=== PATIENT | male | born 1955 | race Caucasian/White ===

== ENCOUNTER → 2017-11-26 13:26 | Outpatient (CLI) | payer OTHER, SELFPAY ==
--- NOTE | 2017-11-26 13:30 | RAD_ITS ---
STUDY: X-RAY - RIGHT HAND, ATTENTION THIRD FINGER REASON FOR EXAM: Male, 62 years old. Chronic sore pain. TECHNIQUE: view(s) of the finger were obtained. COMPARISON: None. FINDINGS: Normal metacarpal head. There is moderate arthrosis of the metacarpal phalangeal and interphalangeal joints. Normal proximal phalanx. Normal middle phalanx. Normal distal phalanx. RAD/Finger(s) Min 2 Views IMPRESSION: Osteoarthritic changes. No acute pathology. Electronically Signed: Kenneth Kay MD at 11:12 EDT , Service support ,
== END ==
PROVIDERS: Family Provider Family Medicine; PCP Family Medicine; Visit Provider Orthopaedic Surgery
DX: M79.644 Pain in right finger(s) (principal)
CPT/HCPCS: 73140

== ENCOUNTER 2017-12-18 09:35 | Day surgery (SDC) | payer OTHER, SELFPAY ==
[2017-12-18 09:57] VITALS: BP 138/75; PULSE 53; RESP 14; TEMP 36.3; O2SAT 98; BMI 32.1
[2017-12-18 10:21] LABS: Bedside Glucose 258 mg/dL (70-110)
--- NOTE | 2017-12-18 11:30 | BON_PTH ---
PATIENT: GUSTAVO KELLY [place] [facility] [id number] AGE/SX: 62/M ROOM: RE12/18/[address]: Dr. Vee Azul DO : 1955 BED: DIS: 12/18/2017 SPEC #: [id number] RECD: 12/18/17 16:14 STATUS: SARAH RIGOBERTO #: [id number] JHON: 12/18/17 11:[address]: Vee Azul DEPT: SURGICAL PATHOLOGY RECD BY: Husam Villalpando ENTERED: 12/19/17 09:07 SP TYPE: Bone OTHR DR: Dr. Gonsalo Bertrand MD Tissues: A - Bone of hand, NOS B - CYST Procedures: Decalcification bone/plaque Surgery Specimen Level III Surgery Specimen Level IV HEADER OPERATION: Debridement and cyst removal, DIP joint middle finger PRE-OP DIAGNOSIS: Osteoarthritis of finger of right hand, bone TISSUE SUBMITTED: A ? Bone DIP joint middle finger right hand, B ? Cyst DIP joint middle finger right hand MICROSCOPIC DIAGNOSIS A. Bone, DIP joint, middle finger of right hand, biopsy: Fragments of hyaline cartilage and bone with focal reactive change. Fibrous tissue with thermal artifact. No evidence of malignancy. B. Cyst, DIP joint, middle finger of right hand, biopsy: Synovial cyst with fibrosis. AM:gus 12/23/17 MICROSCOPIC DESCRIPTION Slides are reviewed. GROSS DESCRIPTION A - Received in fixative is one container labeled with the patient's name and designated bone DIPJ middle finger right. The specimen consists of multiple minute pieces of bone that in aggregate measure 1 x 0.2 x 0.1 cm. The entire specimen is submitted in one cassette after decalcification. B - Received in fixative is one container labeled with the patient's name and designated cyst DIPJ middle finger right. The specimen consists of a piece of esquivel, indurated tissue measuring 0.8 x 0.3 x 0.3 cm. The entire specimen is submitted in one cassette. / SJ:gus 12/19/17 TC:5 CPT: 92165, 79605, 22997
[2017-12-18] MEDS: Cefazolin 2 GM in 0.9% Normal Saline 100 ML IV (12:19)
--- NOTE | 2017-12-18 12:31 | OP.PCM_ITS ---
Report of Operation Date of Procedure: 12/18/17 Pre-Operative Diagnosis: right middle finger dip osteoarthritis and myxoid cyst Post-Operative Diagnosis: same Surgery/Procedure Performed:: right middle finger dip joint debridement, myxoid cyst excision Type of Anesthesia:: BlockDesirae, Local Anesthesiologist: Etienne Guajardo Specimen's removed: myxoid cyst and bone dip joint Fluids Replaced: 1000ml lr Description of Procedure: Preop note Patient is a 62-year-old male with continued right third finger DIP pain continued inability to use finger due to pain. Risks benefits alternatives surgery discussed with patient. Our x-rays show arthritis and on clinical exam he has a myxoid cyst of the DIP joint. Risks including but not limited to blood loss, blood clot, infection, neurovascular injury, failure procedure, loss of life and loss of limb. Patient is aware would like proceed with right third finger DIP joint debridement myxoid cyst excision. Next Operative note Patient seen and examined preoperative holding area. Right third finger was marked. Patient is brought to the operating room placed supine on the operating room table. Signing, anesthesia, antibiotics were administered. The right hand was prepped and draped in usual sterile fashion after [place] block was initiated. We marked out our curvilinear incision over the DIP joint of the right third finger. Timeout was performed. We then used a 15 blade to cut through the skin dissected down tenotomy to the level of the myxoid cyst. There is myxoid cyst was removed in its entirety and the stalk was ablated with bipolar. We sent the cyst for further evaluation. We then were able to dissect down to the DIP joint at the level of where the cyst was coming from we gently debrided with a rongeur and a rasp to a smooth surface. The incision was irrigated with copious amounts of sterile saline. The incision was closed with interrupted 4-0 nylon suture sterile dressings were applied. The patient tolerated procedure well there are no complications. Patient transferred to recovery room in stable condition. Next Postoperative note next Hospital has prescriptions of Leave dressing intact next Call with increased pain numbness tingling further issues arise This note was generated with Micronotesation software. It may contain incorrect words, spelling, and punctuation that were not noted in checking the note before signing.
--- NOTE | 2017-12-18 12:31 | DCINST_ITS ---
Discharge Diet: No Restrictions - leave dressing in place, may remove/replace if gets dirty, follow up in 2 wks, call with concerns Discharge Activity: May Not Drive May shower in (days): 1 Ice area for (Minutes): 20 - Every hour while awake. Weight Bearing Status: Weight bearing as tolerated Keep extremity elevated above heart level: Operative Extremity Call your doctor if your incision/area has: Continuous Slow Oozing, Sudden Increased Bleeding, Increased Pain/ Swelling, Increased Redness, Foul Smelling Discharge Call your doctor if you observe: Fever of 101 or Higher, Coldness, Increased Pain, Numbness or Tingling, Change in Color, Calf discomfort Allergies/Adverse Reactions: Allergies No Known Allergies Allergy (Verified 12/11/17 13:47) Medications to take at Discharge Allopurinol [Zyloprim] 100 mg PO DAILYCM 05/28/13 Ascorbic Acid [Vitamin C] 500 mg PO DAILY@0800 05/28/13 Aspirin 325 mg PO DAILY@0800 05/28/13 Ezetimibe [Zetia] 10 mg PO DAILY 05/28/13 Famotidine [Pepcid] 20 mg PO DAILY 05/28/13 Folic Acid 0.8 mg PO DAILY@0800 05/28/13 Fosinopril Sodium [Monopril] 10 mg PO DAILY 05/28/13 Magnesium 250 mg PO DAILY 05/28/13 Metoprolol(XL)Succ [Toprol Xl] 100 mg PO BID 05/28/13 Nitroglycerin [Nitrostat] 0.4 mg SUBLINGUAL Q5M PRN 05/28/13 Rosuvastatin Calcium [Crestor] 20 mg PO QHS 05/28/13 Clopidogrel Bisulfate [Plavix] 75 mg PO DAILY 09/11/13 Ranolazine [Ranexa] 1,000 tab PO BID 09/11/13 Insulin Aspart [Novolog Flexpen ([facility])] 18 units SC TIDCM 12/11/17 Insulin Glargine [Lantus ([facility])] 58 units SC QHS 12/11/17 Insulin Glargine [Lantus (BK)] 66 units SC DAILY 12/11/17 Hydrocodone Bitart/Apap 5-325 [[place] 5MG-325MG] 1 - 2 tablet PO Q6H PRN PRN 3 Days #20 tablet 12/18/17 The following prescriptions were given: Hydrocodone Bitart/Apap 5-325 [[place] 5MG-325MG] 1 - 2 tablet PO Q6H PRN PRN 3 Days #20 tablet PRN Reason: Pain Primary Care Physician: Johann Bertrand MD [Primary Care Provider] - Please Follow Up With: Vee Azul, - [phone]
[2017-12-18] MEDS: Bupivacaine Mpf 0.5% 30 ML VIAL (13:07)
[2017-12-18] MEDS: Mupirocin Ointment 22gm Tube 1 APPLIC (13:13)
[2017-12-18 13:20] VITALS: BP 126/70; BP 138/75; PULSE 62; RESP 16; TEMP 35.9; O2SAT 93
[2017-12-18 13:25] VITALS: BP 123/72; BP 138/75; PULSE 60; RESP 16; O2SAT 93
[2017-12-18 13:30] VITALS: BP 117/73; BP 138/75; PULSE 60; RESP 16; O2SAT 92
[2017-12-18 13:35] VITALS: BP 117/71; BP 138/75; PULSE 60; RESP 16; TEMP 35.8; O2SAT 92
[2017-12-18 14:31] VITALS: BP 138/75
== END 2017-12-18 14:31 | disposition home or self-care (01) ==
LOC: SDC 09:38 → AC 09:39
PROVIDERS: Family Provider Family Medicine; PCP Family Medicine; Visit Provider Orthopaedic Surgery
PROC: (CPT 26160; principal; 2017-12-18 11:15)
DX: M71.341 Other bursal cyst, right hand (principal); M19.041 Primary osteoarthritis, right hand; Z79.899 Other long term (current) drug therapy; Z79.02 Long term (current) use of antithrombotics/antiplatelets; Z79.4 Long term (current) use of insulin; E11.9 Type 2 diabetes mellitus without complications; Z85.46 Personal history of malignant neoplasm of prostate; I25.10 Atherosclerotic heart disease of native coronary artery without angina pectoris; Z95.1 Presence of aortocoronary bypass graft; E78.00 Pure hypercholesterolemia, unspecified; K21.9 Gastro-esophageal reflux disease without esophagitis; I25.2 Old myocardial infarction; I10 Essential (primary) hypertension
CPT/HCPCS: 01810; 26160; 82962; 88304; 88305; 88311; J7120

== ENCOUNTER → 2018-04-10 06:08 | Outpatient (CLI) | payer OTHER, SELFPAY ==
--- NOTE | 2018-04-10 09:33 | STRESSREP ---
Stress Test Report Date: 04/10/2018 Procedure: Exercise tolerance test/imaging study Indications: Chest pain; CAD: CABG Consent: Per the patient Procedure: The patient exercised on a Antonio protocol for 3 minutes and 27 seconds completing Stage I and 27 seconds of Stage II achieving a peak heart rate of 109 bpm (69 % predicted maximal heart rate) with a peak blood pressure 142/82 mmHg and a peak MET capacity of 5 METs. The baseline ECG demonstrated normal sinus rhythm; PVC. The peak exercise ECG demonstrated somatic/motion artifact with the appearance of approximately 0.5 mm -1.0 mm of horizontal to upsloping ST segment depression in leads I and II. There was an occasional PVC pretest. The functional capacity was considered decreased. There was [no complaint of chest discomfort during exercise or recovery]. The examination was discontinued secondary to dyspnea. Impression: 1. Technically inadequate (percent predicted maximal heart rate less than 85%) exercise tolerance test 2. Peak exercise ECG approximately 0.5 mm to 1.0 mm horizontal to upsloping ST segment depression in leads I and II 3. There was an occasional PVC pretest 4. Pharmacologic (Regadenoson) evaluation pending. Procedure: Pharmacologic stress nuclear imaging study Consent: Per the patient Procedure: The patient underwent pharmacologic (Regadenoson) evaluation with a peak heart rate of 76 beats per minute (48 predicted maximal heart rate) and a peak blood pressure of 140/80 mmHg. The baseline ECG demonstrated sinus rhythm with the appearance of 0.5 mm to 1.0 mm of horizontal/downsloping ST segment depression with associated T-wave change in leads I, II, and aVL with occasional PVC. The peak pharmacologic ECG demonstrated no obvious ECG change. There was an occasional PVC pretest. [There was no complaint of chest discomfort during pharmacologic infusion or recovery]. The examination was discontinued secondary to completion of protocol. Impression: 1. Pharmacologic (Regadenoson) evaluation 2. Peak pharmacologic ECG with continued 0.5 mm to 1.0 mm horizontal/downsloping ST segment depression with associated T-wave change in leads I, II, and aVL with gradual resolution towards baseline in recovery. 3. Was occasional PVC pretest and during recovery 4. Nuclear images pending Myocardial perfusion imaging study: Technique: The patient was injected with 10.8 millicuries of technetium 99m Cardiolite and subsequently rest SPECT Cardiolite nuclear imaging was obtained in the horizontal long, vertical long, and short axis views. The patient exercised on a Antonio protocol for 3 minutes and 27 seconds completing Stage I and 27 seconds of Stage II achieving a peak heart rate of 109 bpm (69 % predicted maximal heart rate) with a peak blood pressure 142/82 mmHg and a peak MET capacity of 5 METs. The patient underwent pharmacologic (Regadenoson) evaluation with a peak heart rate of 76 beats per minute (48 predicted maximal heart rate) and a peak blood pressure of 140/80 mmHg. The patient was injected with 33.6 millicuries of technetium 99m Cardiolite and subsequently stress SPECT Cardiolite nuclear imaging was obtained in the horizontal long, vertical long, and short axis views. A gated Cardiolite study at peak stress was obtained. Interpretation: Rest and stress SPECT Cardiolite nuclear imaging status post realignment, normalization, and attenuation correction demonstrate the appearance of diminished myocardial perfusion/tracer uptake in portions of the basal inferoseptal, basal inferior, and basal inferolateral segments extending toward the mid inferolateral segments which status post stress appears to be more prominent in the mid towards distal inferolateral segments. There are similar type findings on the resting and stress polar map images. There is diminished end systolic thickening and brightening in the aforementioned areas. The gated Cardiolite study demonstrates diminished myocardial thickening and inward wall motion in the aforementioned areas. The reported LVEF is 51 %. Impression: 1. Rest and stress SPECT cardio nuclear imaging demonstrate myocardial perfusion changes appearing compatible with an area of previous myocardial injury/infarction involving portions of the basal inferior septal, basal inferior, basal inferolateral segments extending towards the mid inferolateral segments with post stress myocardial perfusion changes appearing compatible with associated stress-induced myocardial ischemia involving portions of the mid to distal inferolateral segments. 2. The gated Cardiolite study reports an LVEF of 51 %. This note was generated with GenieBeltation software. It may contain incorrect words, spelling, and punctuation that were not noted in checking the note before signing.
== END ==
PROVIDERS: Family Provider Family Medicine; PCP Family Medicine; Visit Provider Nurse Practitioner Family
DX: I25.10 Atherosclerotic heart disease of native coronary artery without angina pectoris (principal); R07.9 Chest pain, unspecified; R06.09 Other forms of dyspnea
CPT/HCPCS: 78452; 93017; 93306; A9500; A4216; J2785

== ENCOUNTER 2018-05-02 10:20 | Day surgery (SDC) | payer OTHER, SELFPAY ==
--- NOTE | 2018-04-28 06:50 | RAD_ITS ---
STUDY: X-RAY CHEST REASON FOR EXAM: Male, 63 years old. Pre heart catheter. Short of breath. TECHNIQUE: Frontal and lateral views of the chest. COMPARISON: 05/18/2013. FINDINGS: The lungs are clear and expanded. There is no demonstrated pleural abnormality. Sternal cerclage wires and vascular clips are present from a prior sternotomy and coronary artery bypass graft procedure (CABG). Normal heart size. Normal mediastinum and magdy. Normal visualized pulmonary arteries. Normal visualized aortic arch and descending thoracic aorta. Normal visualized thoracic spine. Normal visualized ribs, clavicles, and shoulders. There is no demonstrated abnormality of the visualized soft tissue structures of the upper abdomen. RAD/Chest PA and Lateral IMPRESSION: No acute chest disease. Electronically Signed: Mil Jackson MD at 17:02 EDT , Service support ,
[2018-04-28 07:23] LABS: Absolute Lymphocyte Count 2.44 X10^3/ul (0.83-4.51); Absolute Neutrophil Count 4.3 X10^3/uL (2.0-7.7); Basophil# 0.01 X10^3/uL; Basophil% 0.1 % (0-1); Eosinophil# 0.18 X10^3/uL; Eosinophils% 2.4 % (0-5); Hematocrit 42.9 % (40-54); Lymphocyte # 2.44 X10^3/ul (4.0); Mean Corpuscular Hgb 33.8 pg (27.0-32.0); Mean Corpuscular Volume 96.6 fL (80-94); Mean Platelet Vol. 11.2 fl (6.2-12.0); Monocyte# 0.71 X10^3/uL; Monocyte% 9.3 % (0-10); Neutrophil # 4.25 X10^3/uL (2.7-7.7); Neutrophil % 55.7 % (47-70); Platelet Count 167 K/mm3 (150-450); RBC Distribution Width CV 13.2 % (11.6-14.6); RBC Distribution Width SD 45.8 fl (35.1-43.9); Red Blood Count 4.44 M/mm3 (4.6-6.2); White Blood Count 7.6 K/mm3 (4.4-11.0)
[2018-04-28 07:30] LABS: Prothrombin Time (Protime)PT. 13.2 SECONDS (11.7-14.9)
[2018-04-28 07:31] LABS: Partial Thromboplast Time 26.9 Seconds (24.1-36.2)
[2018-04-28 07:40] LABS: Anion Gap 6 (5-15); BUN 21 mg/dL (7-18); BUN/Creat Ratio 14.5 RATIO (10-20); Calcium,Total 8.5 mg/dL (8.5-10.1); Chloride 104 mmol/L (98-107); Creatinine, Serum 1.45 mg/dL (0.70-1.30); EST Glomerular Filtration Rate 52 mL/min (>60); Est Glom Filt Rate - Afr Amer 63 mL/min (>60); Glucose 273 mg/dL (74-106); Potassium 4.2 mmol/L (3.5-5.1); Sodium Level 139 mmol/L (136-145)
[2018-04-28 07:58] LABS: POSITIVE COUNT NO; POSITIVE DIFFERENTIAL NO; POSITIVE MORPHOLOGY NO
[2018-05-01 09:03] VITALS: BMI 32.3
--- NOTE | 2018-05-02 09:19 | PCM.HP.COS ---
History of Present Illness Date of Admission: 05/02/18 The patient is a 63 year old M who presents today for a heart cath. He has a history of coronary artery disease status post bypass surgery in 1995 with an SANDOVAL to LAD, SVG to diagonal, SVG to IR, and SVG to RCA. He also has history of ischemic cardiomyopathy, PVCs, hypertension, hyperlipidemia, and KYLE with BiPap. During his OV he noted chest pain and SOB. This was relieved with NTG and could occur 2-3 times a week. He would take NTG prior to activity to prevent this. Pt underwent a stress test which was abnormal. It demonstrated: 1. Rest and stress SPECT cardio nuclear imaging demonstrate myocardial perfusion changes appearing compatible with an area of previous myocardial injury/infarction involving portions of the basal inferior septal, basal inferior, basal inferolateral segments extending towards the mid inferolateral segments with post stress myocardial perfusion changes appearing compatible with associated stress-induced myocardial ischemia involving portions of the mid to distal inferolateral segments. 2. The gated Cardiolite study reports an LVEF of 51 %. Past Medical History Past Medical History (Chronic Problems): Chronic Problems (Last Updated 04/11/18 @ 11:19 by Fide Cristina) Atherosclerosis of coronary artery bypass graft without angina pectoris (Chronic) Ischemic cardiomyopathy (Chronic) Diabetes (Chronic) PVCs (premature ventricular contractions) (Chronic) Hyperlipidemia (Chronic) Hypertension (Chronic) Atherosclerosis of [place] coronary artery of [place] heart without angina pectoris (Chronic) S/P CABG in 1995 with SANDOVAL to LAD, SVG to diagonal, SVG to intermediate ramus, and SVG to RCA; Medical History: Medical History (Last Updated 04/11/18 @ 11:19 by Fide Cristina) Atherosclerosis of coronary artery bypass graft without angina pectoris (Chronic) I25.810 History of myocardial infarction (Acute) I25.2 Ischemic cardiomyopathy (Chronic) I25.5 Diabetes (Chronic) E11.9 PVCs (premature ventricular contractions) (Chronic) I49.3 Hyperlipidemia (Chronic) E78.5 Hypertension (Chronic) I10 Atherosclerosis of [place] coronary artery of [place] heart without angina pectoris (Chronic) I25.10 S/P CABG in 1995 with SANDOVAL to LAD, SVG to diagonal, SVG to intermediate ramus, and SVG to RCA; Obstructive sleep apnea G47.33 Kidney stones N20.0 Allergies No Known Allergies Allergy (Verified 03/24/18 16:00) Home Medications: Ambulatory Orders Medication Instructions Recorded Allopurinol [Zyloprim] 100 mg PO DAILYCM 05/28/13 Ascorbic Acid [Vitamin C] 500 mg PO DAILY@0800 05/28/13 Aspirin 325 mg PO DAILY@0800 05/28/13 Ezetimibe [Zetia] 10 mg PO DAILY 05/28/13 Famotidine [Pepcid] 20 mg PO DAILY 05/28/13 Folic Acid 0.8 mg PO DAILY@0800 05/28/13 Fosinopril Sodium [Monopril] 10 mg PO DAILY 05/28/13 Magnesium 250 mg PO DAILY 05/28/13 Nitroglycerin [Nitrostat] 0.4 mg SUBLINGUAL Q5M PRN 05/28/13 Rosuvastatin Calcium [Crestor] 20 mg PO QHS 05/28/13 Clopidogrel Bisulfate [Plavix] 75 mg PO DAILY 09/11/13 Ranolazine [Ranexa] 1,000 tab PO BID 09/11/13 Insulin Aspart [Novolog Flexpen 18 units SC TIDCM 12/11/17 ([facility])] Insulin Glargine [Lantus ([facility])] 58 units SC QHS 12/11/17 Insulin Glargine [Lantus (BK)] 66 units SC DAILY 12/11/17 fluticasone 50 mcg/actuation nasal 1 spray INTRANASAL QDAY 03/24/18 spray,suspension metoprolol tartrate 100 mg tablet 100 mg PO BID 03/24/18 Surgical History: Surgical History (Last Updated 01/03/18 @ 08:31 by Jay Radford) Hx of heart bypass surgery (Inactive) Z95.1 1995 bone spur removal R middle finger DIP jt H/O hernia repair Z98.890, Z87.19 Smoking Status: Never smoker Review of Systems Constitutional: Denies: Chills, Fever, Weight Change HEENT: Denies: Head Aches, Sinus Congestion, Sinus Drainage Cardiovascular: Reports: Chest Pain Respiratory: Denies: Cough, Shortness of breath at rest, Sputum production Musculoskeletal: Denies: Joint Pain, Joint Tenderness Neurological: Denies: Numbness, Tingling, Focal weakness VTE Information - Inpt Only VTE Present on Admission: No - Physical Exam General: Alert, Oriented x3, Cooperative HEENT: Atraumatic, PERRLA, EOMI, Normocephalic Neck: Supple, No JVD, Negative Carotid Bruits Lungs: Clear to auscultation, Normal air movement Cardiovascular: Regular rate, Murmur - 2/6 CICI Abdomen: Bowel Sounds Present, Soft, Non Tender Neurological: Cranial nerves II-XII grossly intact Weight: 213 lb Body Mass Index (BMI) 32.3 Assessment/Plan All Active Problems (Last Updated 04/11/18 @ 11:19 by Fide Cristina) History of myocardial infarction (Acute) 1. Atherosclerosis of [place] coronary artery of [place] heart without angina pectoris I25.10 S/P CABG in 1995 with SANDOVAL to LAD, SVG to diagonal, SVG to intermediate ramus, and SVG to RCA; Plan His heart catheterization in May 2013 showed multivessel coronary artery disease, SANDOVAL to LAD to be patent, SVG to diagonal branch, intermediate ramus, and RCA appear to be proximally occluded. The LAD appears to provide flow to septal perforating system into small diagonal branching systems and distal RCA/right PDA system (small caliber vessel). Pt will undergo a heart cath today. 2. Ischemic cardiomyopathy I25.5 Plan Pt recently had echo done, this demonstrated Mild segmental systolic dysfunction (see wall motion). The estimated ejection fraction is 45 %. Mild concentric left ventricular hypertrophy. The left atrium is mildly enlarged. There is mild mitral annular calcification. Equivocal mitral valve prolapse. Mild (1+) mitral valve insufficiency. Mild tricuspid valve insufficiency. Mild focal aortic valve thickening. Calcified aortic root. Right ventricular systolic pressure estimated to be 25 mmHg. Transmitral diastolic flow velocities suggest diastolic dysfunction (pseudonormal pattern). He will continue with medical management. 3. Essential hypertension I10 Plan Patient's blood pressure is well-controlled today in the office. We will continue to monitor this. We will not make any medication regimen changes. 4. Pure hypercholesterolemia E78.00; E78.0 Plan [facility] He will continue with current medications which include statin and non-statin medication. 5. PVCs (premature ventricular contractions) I49.3 Plan He denies any symptomatic recurrence. He will continue with current beta-elisha and we will continue to monitor.
--- NOTE | 2018-05-02 09:25 | HP.PCM.COS_ITS ---
History of Present Illness Date of Admission: 05/02/18 The patient is a 63 year old M who presents today for a heart cath. He has a history of coronary artery disease status post bypass surgery in 1995 with an SANDOVAL to LAD, SVG to diagonal, SVG to IR, and SVG to RCA. He also has history of ischemic cardiomyopathy, PVCs, hypertension, hyperlipidemia, and KYLE with BiPap. During his OV he noted chest pain and SOB. This was relieved with NTG and could occur 2-3 times a week. He would take NTG prior to activity to prevent this. Pt underwent a stress test which was abnormal. It demonstrated: 1. Rest and stress SPECT cardio nuclear imaging demonstrate myocardial perfusion changes appearing compatible with an area of previous myocardial injury/infarction involving portions of the basal inferior septal, basal inferior, basal inferolateral segments extending towards the mid inferolateral segments with post stress myocardial perfusion changes appearing compatible with associated stress-induced myocardial ischemia involving portions of the mid to distal inferolateral segments. 2. The gated Cardiolite study reports an LVEF of 51 %. Past Medical History Past Medical History (Chronic Problems): Chronic Problems (Last Updated 04/11/18 @ 11:19 by Fide Cristina) Atherosclerosis of coronary artery bypass graft without angina pectoris (Chronic) Ischemic cardiomyopathy (Chronic) Diabetes (Chronic) PVCs (premature ventricular contractions) (Chronic) Hyperlipidemia (Chronic) Hypertension (Chronic) Atherosclerosis of [place] coronary artery of [place] heart without angina pectoris (Chronic) S/P CABG in 1995 with SANDOVAL to LAD, SVG to diagonal, SVG to intermediate yimi us, and SVG to RCA; Medical History: Medical History (Last Updated 04/11/18 @ 11:19 by Fide Cristina) Atherosclerosis of coronary artery bypass graft without angina pectoris (Chronic) I25.810 History of myocardial infarction (Acute) I25.2 Ischemic cardiomyopathy (Chronic) I25.5 Diabetes (Chronic) E11.9 PVCs (premature ventricular contractions) (Chronic) I49.3 Hyperlipidemia (Chronic) E78.5 Hypertension (Chronic) I10 Atherosclerosis of [place] coronary artery of [place] heart without angina pectoris (Chronic) I25.10 S/P CABG in 1995 with SANDOVAL to LAD, SVG to diagonal, SVG to intermediate ramus, and SVG to RCA; Obstructive sleep apnea G47.33 Kidney stones N20.0 Allergies No Known Allergies Allergy (Verified 03/24/18 16:00) Home Medications: Ambulatory Orders Medication Instructions Recorded Allopurinol [Zyloprim] 100 mg PO DAILYCM 05/28/13 Ascorbic Acid [Vitamin C] 500 mg PO DAILY@0800 05/28/13 Aspirin 325 mg PO DAILY@0800 05/28/13 Ezetimibe [Zetia] 10 mg PO DAILY 05/28/13 Famotidine [Pepcid] 20 mg PO DAILY 05/28/13 Folic Acid 0.8 mg PO DAILY@0800 05/28/13 Fosinopril Sodium [Monopril] 10 mg PO DAILY 05/28/13 Magnesium 250 mg PO DAILY 05/28/13 Nitroglycerin [Nitrostat] 0.4 mg SUBLINGUAL Q5M PRN 05/28/13 Rosuvastatin Calcium [Crestor] 20 mg PO QHS 05/28/13 Clopidogrel Bisulfate [Plavix] 75 mg PO DAILY 09/11/13 Ranolazine [Ranexa] 1,000 tab PO BID 09/11/13 Insulin Aspart [Novolog Flexpen 18 units SC TIDCM 12/11/17 ([facility])] Insulin Glargine [Lantus ([facility])] 58 units SC QHS 12/11/17 Insulin Glargine [Lantus ([facility])] 66 units SC DAILY 12/11/17 fluticasone 50 mcg/actuation nasal 1 spray INTRANASAL QDAY 03/24/18 spray,suspension metoprolol tartrate 100 mg tablet 100 mg PO BID 03/24/18 Surgical History: Surgical History (Last Updated 01/03/18 @ 08:31 by Jay Radford) Hx of heart bypass surgery (Inactive) Z95.1 1995 bone spur removal R middle finger DIP jt H/O hernia repair Z98.890, Z87.19 Smoking Status: Never smoker Review of Systems Constitutional: Denies: Chills, Fever, Weight Change HEENT: Denies: Head Aches, Sinus Congestion, Sinus Drainage Cardiovascular: Reports: Chest Pain Respiratory: Denies: Cough, Shortness of breath at rest, Sputum production Musculoskeletal: Denies: Joint Pain, Joint Tenderness Neurological: Denies: Numbness, Tingling, Focal weakness VTE Information - Inpt Only VTE Present on Admission: No - Physical Exam General: Alert, Oriented x3, Cooperative HEENT: Atraumatic, PERRLA, EOMI, Normocephalic Neck: Supple, No JVD, Negative Carotid Bruits Lungs: Clear to auscultation, Normal air movement Cardiovascular: Regular rate, Murmur - 2/6 CICI Abdomen: Bowel Sounds Present, Soft, Non Tender Neurological: Cranial nerves II-XII grossly intact Weight: 213 lb Body Mass Index (BMI) 32.3 Assessment/Plan All Active Problems (Last Updated 04/11/18 @ 11:19 by Fide Cristina) History of myocardial infarction (Acute) 1. Atherosclerosis of [place] coronary artery of [place] heart without angina pectoris I25.10 S/P CABG in 1995 with SANDOVAL to LAD, SVG to diagonal, SVG to intermediate ramus, and SVG to RCA; Plan His heart catheterization in May 2013 showed multivessel coronary artery disease, SANDOVAL to LAD to be patent, SVG to diagonal branch, intermediate ramus, and RCA appear to be proximally occluded. The LAD appears to provide flow to septal perforating system into small diagonal branching systems and distal RCA/right PDA system (small caliber vessel). Pt will undergo a heart cath today. 2. Ischemic cardiomyopathy I25.5 Plan Pt recently had echo done, this demonstrated Mild segmental systolic dysfunction (see wall motion). The estimated ejection fraction is 45 %. Mild concentric left ventricular hypertrophy. The left atrium is mildly enlarged. There is mild mitral annular calcification. Equivocal mitral valve prolapse. Mild (1+) mitral valve insufficiency. Mild tricuspid valve insufficiency. Mild focal aortic valve thickening. Calcified aortic root. Right ventricular systolic pressure estimated to be 25 mmHg. Transmitral diastolic flow velocities suggest diastolic dysfunction (pseudonormal pattern). He will continue with medical management. 3. Essential hypertension I10 Plan Patient's blood pressure is well-controlled today in the office. We will continue to monitor this. We will not make any medication regimen changes. 4. Pure hypercholesterolemia E78.00; E78.0 Plan [facility] He will continue with current medications which include statin and non-statin medication. 5. PVCs (premature ventricular contractions) I49.3 Plan He denies any symptomatic recurrence. He will continue with current beta- elisha and we will continue to monitor.
--- NOTE | 2018-05-02 16:33 | CL.D_ITS ---
Patient Name: GUSTAVO KELLY Study Date: 05/02/2018 Performing: Rodríguez Srivastava MD Ht: 68 inches 173 cm : 1955 Wt: 214.1 lbs 97 kg Age: 63 Gender: male BSA: 2.11 PROCEDURE(S) PERFORMED [id number]/LV/CABG CLINICAL PROFILE AND INDICATIONS Indications: Worsening Angina Heart Failure: None Stress/Imaging Stress Test w/SPECT MPI: Yes Result: PositiveStress Test with SPECT MPI: Positive Angina Classification Anginal Classification w/in 2 Weeks: CCS III CAD Presentations: Unstable angina. CONCLUSIONS Elevated Left Ventricular End Diastolic Pressure Segmented LV systolic dysfunction- Mild LVEF: by LV gram 50 % [place] Multivessel CAD SANDOVAL to LAD: patent SVG to DX: occluded: chronic SVG to IR: occluded: chronic SVG to RCA: occluded: chronic C/W the [facility] cardiac cath from 05/29/2013 there is no significant change RECOMMENDATIONS Risk factor modification Medical therapy DESCRIPTION OF PROCEDURE The patient arrived to the procedure lab. The risks and benefits of the procedure as well as a full d escription of our services here and current unavailability of surgical backup were fully explained to the patient and/or their significant other prior to the catheterization. The Timeout was completed, verifying the correct patient and procedure. The patient's procedural site was prepped and draped in the usual fashion. Local anesthetic was given subcutaneously to right groin region with Lidocaine 2%. Using a modified Seldinger technique, arterial access was obtained via the right femoral artery, a 4 Fr sheath was inserted Left Coronary Artery selective angiography was performed in multiple views us ing a 4 Fr. JL5 catheter. Right Coronary Artery selective angiography was then performed in multiple views using a 4 Fr. 3DRC catheter. Left internal mammary artery graft to the LAD selective angiograph y was performed in multiple views using a 4 Fr. IM catheter. Left Ventriculography was performed in R AO projection using a 4 Fr. Pigtail catheter. LV to AO pullback pressures were then recorded.The sulaiman rial sheath was pulled and manual compression applied until hemostasis is achieved. CORONARY ANGIOGRAPHY DOMINANCE: Right Dominant LEFT HEART ASSESSMENT Left Ventricular Ejection Fraction: by LV Gram 50 % Inferior Basal Akinesis. Inferior Mid Hypokinesis Elevated Left Ventricular End Diastolic Pressure LVEDP: 16 mmHg LEFT MAIN: long small caliber diffusely diseased vessel with dital subtotal occlusion LEFT ANTERIOR DECENDING ARTERY: PROX LAD: is occluded MID LAD: Mid to Distal to Apical LAD filling from the SANDOVAL graft with no angiographically significant appearing stenosis distal to the graft attachment DIAGONAL 1: Proximal - filling retrograde from the LAD which fills from the SANDOVAL graft CIRCUMFLEX ARTERY: PROX CIRC: is occluded RAMUS: is occluded RIGHT CORONARY ARTERY: PROX RCA: is occluded RT PDA: Proximal - fills from left to right collateral flow (small caliber vessel) GRAFTS: SANDOVAL graft to the Mid LAD is patent with 25% appearing stenosis at the anastomosis Saphenous Vein graft to the 1st Diagonal is totally occluded (chronic: based upon 05/29/2013 cardiac cath) Saphenous Vein graft to the Ramus is totally occluded (chronic: based upon 05/29/2013 cardiac cath) Saphenous Vein graft to the RCA is totally occluded (chronic: based upon 05/29/2013 cardiac cath) VALVE FINDINGS: Normal Aortic Valve function Normal Mitral Valve function AORTIC ROOT: Angiographically normal COMPLICATIONS No Complications PROCEDURE MEDICATIONS Versed 1 mg IV Oxygen: 2 L/min via nasal cannula SUMMARY OF HEMODYNAMIC DATA Time AIR REST ECG 09:27:09 AO 116/63 (84) SA 10:56:35 LV 120/-1, 16 11:15:28 LV 130/-8, 15 11:15:34 LV 112/1, 17 11:16:22 LVp 116/6, 17 11:16:26 AOp 120/53 (78) 11:16:31 Signed By Rodríguez Srivastava MD On 05/02/2018 16:32:36 Rodríguez Srivastava MD
== END 2018-05-02 15:46 | disposition home or self-care (01) ==
LOC: CLSP 10:20
PROVIDERS: Nurse Practitioner Family; Family Provider Family Medicine; PCP Family Medicine; Visit Provider Internal Medicine Cardiovascular Disease
DX: I25.810 Atherosclerosis of coronary artery bypass graft(s) without angina pectoris (principal); I25.82 Chronic total occlusion of coronary artery; I10 Essential (primary) hypertension; E78.00 Pure hypercholesterolemia, unspecified; I25.5 Ischemic cardiomyopathy; I49.3 Ventricular premature depolarization; E11.9 Type 2 diabetes mellitus without complications; G47.33 Obstructive sleep apnea (adult) (pediatric); I25.2 Old myocardial infarction; Z87.442 Personal history of urinary calculi; Z87.19 Personal history of other diseases of the digestive system; Z79.82 Long term (current) use of aspirin; Z79.4 Long term (current) use of insulin; Z79.02 Long term (current) use of antithrombotics/antiplatelets; Z79.899 Other long term (current) drug therapy; R07.9 Chest pain, unspecified
CPT/HCPCS: 36415; 71046; 80048; 85025; 85610; 85730; 93459; J7040; C1769; C1894; Q9967

== ENCOUNTER 2018-09-03 07:18 | Outpatient (RCR) | payer OTHER, SELFPAY ==
--- NOTE | 2018-09-03 08:28 | HP.PTEVAL_ITS ---
Patient's Visit Information GUSTAVO KELLY is a 63 year old M referred to Physical Therapy by Johann Bertrand MD with a diagnosis of L groin strain. Date of Evaluation: 09/03/18 Physical Therapist: Manuel Nieves PT, ATC - Visit Plan Frequency: 1x/Week Duration: 1 Week Plan: Pt is I with HEP. Discharge - Subjective Findings: Pt reports he was playing softball 6 mos ago when he felt his L groin pain. Pt reports the pain is becoming less frequent in nature, but he still continues to feel his pain. Pt reports he has been skeptical about performing PT, but is willing to give it a chance. Pt reports he has been babying his pain, but the pain still exists. Pt reports his pain is directly in the L groin region. No tingling or numbness in L LE. No sleep difficulty at this time secondary to pain. Pt doesnt stretch LE's as a normal daily routine. Pt notes he is not limited with any of his normal daily activities. Pt has pulled his groin in the past. Pt has not had any pain in the past week or two. - Pain L groin Pain Intensity (Out of 10): 0 - Objective Neuro: B LE sensation is WNL to light touch. B patellar reflex= 2/3. Palpation: no pain with palpation. MMT: B hips are 5/5 throughout. ROM: B hips are WFL. Special tests: no positive tests other than flexibility limitations - Goals Goal 1:: I with HEP after 1 visit Goal Time Frame: 1 Week - Rehabilitation Potential Physical Therapy Diagnosis: Pt had L hip pain in the past secondary to straining his R groin in a softball game Rehabilitation Potential: Good - Anticipated Interventions Patient/Client Instruction: Educate patient on: Condition, Plan of Care For the Purpose of:: To improve self management Therapeutic Exercise to Include: Flexibilty training For the Purpose of:: To decrease pain, To improve muscle performance and motor function Thank you for the opportunity to evaluate your patient. For Medicare and Medicare HMO plans, please review the plan of care and approve it. It will need to be FAXED BACK to us at [phone] for Medicare purposes. For Medicare only, by signing this I certify the plan of care. Please let me know if there are questions or concerns regarding this plan of care. Physician Signature: Date:
== END 2018-09-03 19:00 | disposition home or self-care (01) ==
LOC: PT 07:18
PROVIDERS: Family Provider Family Medicine; PCP Family Medicine; Referring Provider Family Medicine; Visit Provider Family Medicine
DX: S76.212D Strain of adductor muscle, fascia and tendon of left thigh, subsequent encounter (principal)
CPT/HCPCS: 97161

== ENCOUNTER → 2019-04-28 12:09 | Outpatient (CLI) | payer MEDICARE, OTHER, SELFPAY ==
[2018-10-13 08:47] VITALS: BMI 32.5
== END ==
PROVIDERS: Family Provider Family Medicine; PCP Family Medicine; Referring Provider Nurse Practitioner Family; Visit Provider Nurse Practitioner Family
DX: G47.33 Obstructive sleep apnea (adult) (pediatric) (principal)
CPT/HCPCS: 98960; G0463

== ENCOUNTER 2019-07-08 11:51 | Emergency (ER) | payer MEDICARE, OTHER, SELFPAY ==
[2019-05-20 16:06] VITALS: BMI 31.0
[2019-07-08 11:52] VITALS: BP 141/73; PULSE 54; RESP 18; TEMP 36.6; O2SAT 98; BMI 31.0
--- NOTE | 2019-07-08 12:14 | ED.VIS.GEN ---
History of Present Illness Chief Complaint: Back Informant: Patient Onset: Yesterday Current Severity: Moderate Maximum Severity: Severe Narrative: Patient presents with pain to the left posterior pelvis and rating down his left leg. He states symptoms started last evening and progressively worsened throughout the night. He was out doing [place] shopping yesterday and states he was walking around stores with no difficulty. He denies any injury. No problems with bowel or bladder control. No fever or chills. He tried taking 5 mg of oxycodone earlier this morning that did not change his symptoms. - Past Medical History (1) History of myocardial infarction Status: Chronic (2) Atherosclerosis of coronary artery bypass graft without angina pectoris Status: Chronic (3) Diabetes Status: Chronic (4) Essential (primary) hypertension Status: Chronic (5) History of coronary artery bypass surgery Status: Chronic Comment: CABG x4- SANDOVAL to LAD, SVG to Ramus, SVG to DX, and SVG to PDA 01/20/1996 (6) Ischemic cardiomyopathy Status: Chronic (7) Pure hypercholesterolemia Status: Chronic Past Medical History - Allergies and Home Meds Allergies/Adverse Reactions: Allergies No Known Allergies Allergy (Verified 07/08/19 11:55) Primary Care Physician: Johann Bertrand MD [Primary Care Provider] - Prior records reviewed: Yes Lives: Spouse/ Significant Other Smoking Status: Never smoker Review of Systems General: Denies: Chills, Fever Eyes: Denies: Visual changes - bilaterally ENT: Denies: Bilateral ear pain Cardiovascular: Denies: Chest pain Respiratory: Denies: Dyspnea, Cough Gastrointestinal: Denies: Abdominal pain, Nausea, Vomiting, Diarrhea Genitourinary: Denies: Dysuria Musculoskeletal: Reports: Back pain, Extremity Pain. Denies: Swelling Skin: Denies: Rash Neurological: Reports: Parasthesia. Denies: Headache Hematologic: Denies: Easy bruising, Easy bleeding Allergy: Denies: Uticaria Physical Exam Vital Signs/Narrative: Vital Signs Temp Pulse Resp BP Pulse Ox 07/08/19 11:52 97.9 F 54 L 18 141/73 H 98 Inital Vital Signs reviewed: Yes General: Well nourished, Well developed, - - Patient standing at bedside. Patient appears uncomfortable. Head: Normocephalic ENT: Moist mucous membranes Neck: Supple Cardiovascular: Regular rate, Regular rhythm, - - Palpable distal pulses noted throughout. Respiratory: No distress, CTA bilaterally Abdomen: Soft, Nontender Back: - - Tender to palpation over the left sciatic notch and left SI joint. Extremities: - - Legs normal in color and warm to touch. Skin: Normal color, No rash Neurological: Alert, Oriented x3, - - Patient has good strength on testing. He is able to stand on tiptoes at bedside without difficulty. Diagnostic/Tx/Re-eval - Medical Decision Making Patient was initially given p.o. prednisone, Zofran, 0.5 mg of Dilaudid. After 45 minutes he only had minimal improvement. He was given an additional 1 mg of Dilaudid. At this time patient is resting comfortably. O2 sats are stable in the 90s. Patient be discharged with a prescription for [place], prednisone, Flexeril. We did discuss the fact that the steroids would make his blood sugars elevate while he is on the medication he voices understanding and agreement. ED Disposition - Plan for ED Patient: Disposition: Home or Assisted Living Diagnosis: Sciatica Instructions: BACK PAIN w/ SCIATICA Prescriptions: Prednisone [Deltasone] 60 mg PO DAILY #15 tab Transmission Status: Pending to [facility] cycloBENZAPRine HCl [Flexeril] 10 mg PO TID PRN #20 tab PRN Reason: Muscle Spasm Transmission Status: Pending to [facility] Naproxen [Naprosyn] 500 mg PO BID #10 tab Transmission Status: Pending to [facility] Hydrocodone Bitart/Apap 5-325 [[place] 5MG-325MG] 1 tablet PO Q6H PRN PRN 3 Days #10 tablet PRN Reason: Pain Transmission Status: Sent to [facility] Referrals: Johann Bertrand MD [Primary Care Provider] - 3-5 Days if not improving
[2019-07-08] MEDS: HYDROmorphone 1 MG/ML Syringe 0.5 MG IV (12:58)
[2019-07-08] MEDS: predniSONE 20 MG Tablet 60 MG PO (12:58)
[2019-07-08] MEDS: Ondansetron 4 MG/2 ML Vial IV (12:58)
[2019-07-08] MEDS: HYDROmorphone 1 MG/ML Syringe IV (13:51)
[2019-07-08 15:14] VITALS: BP 137/83; PULSE 67; RESP 14; O2SAT 97
== END 2019-07-08 15:15 | disposition home or self-care (01) ==
PROVIDERS: Emergency Provider Emergency Medicine; Family Provider Family Medicine; PCP Family Medicine
DX: M54.42 Lumbago with sciatica, left side (principal); I25.2 Old myocardial infarction; I25.10 Atherosclerotic heart disease of native coronary artery without angina pectoris; E11.9 Type 2 diabetes mellitus without complications; I10 Essential (primary) hypertension; I25.5 Ischemic cardiomyopathy; E78.00 Pure hypercholesterolemia, unspecified; Z95.1 Presence of aortocoronary bypass graft; Z79.4 Long term (current) use of insulin; Z79.82 Long term (current) use of aspirin; Z79.02 Long term (current) use of antithrombotics/antiplatelets; Z79.84 Long term (current) use of oral hypoglycemic drugs; Z79.899 Other long term (current) drug therapy
CPT/HCPCS: 96374; 96375; 99284; A4216; J2405

== ENCOUNTER 2020-02-05 08:21 | Emergency (ER) | payer MEDICARE, OTHER, SELFPAY ==
[2019-10-31 13:51] VITALS: BMI 31.0
[2020-02-05 08:22] VITALS: BP 149/91; PULSE 61; RESP 15; TEMP 36.6; O2SAT 98; BMI 28.6
--- NOTE | 2020-02-05 08:27 | EKG12_ITS ---
Test Reason : CP Blood Pressure : / mmHG Vent. Rate : 055 BPM Atrial Rate : 055 BPM P-R Int : 198 ms QRS Dur : 106 ms QT Int : 432 ms P-R-T Axes : 007 -11 116 degrees QTc Int : 413 ms Sinus bradycardia Inferior infarct , age undetermined ST & T wave abnormality, consider lateral ischemia Abnormal ECG Confirmed by AMADA HERNANDEZ ([id number]), assignment editor SHARON LOMBARDI ([id number]) on 02/08/2020 2:17:05 PM Referred By: NANDINI Confirmed By:AMADA HERNANDEZ
--- NOTE | 2020-02-05 08:27 | ED.VIS.GEN ---
History of Present Illness Chief Complaint: Chest Pain Informant: Patient Onset: Today Narrative: 64-year-old male with past medical history of diabetes, hypertension, coronary artery disease presents with concern for chest pain. Patient states that he is awakened at 2 AM approximately 6 hours ago with chest pressure which he describes as retrosternal and nonradiating. States that at that time he took a nitroglycerin which resolved his chest pain. States that the pain returned approximately 2 hours ago which time he took another nitroglycerin. States that in the past he has had 2 myocardial infarctions 1 in the late 80s and 1 in the late 90s. In the second instance he had coronary artery bypass grafting. 2 years ago PCI was done which shows 3 of the 4 grafts have been clotted completely. Was told by his special crimes investigator that there is only a single vessel perfusing the majority of his heart. States that he does have intermittent pain on exertion but to have this many episodes of chest pain at rest is abnormal. Patient did take his aspirin this morning. Denies any shortness of breath, nausea, vomiting, diaphoresis. Patient is also on Plavix as well as multiple anti-hypertensive medications. Past Medical History - Allergies and Home Meds Allergies/Adverse Reactions: Allergies No Known Allergies Allergy (Verified 10/31/19 13:46) Primary Care Physician: Johann Bertrand MD [Primary Care Provider] - Prior records reviewed: Yes Past Medical History: - - HTN, DM, CAD Surgical History: coronary bypass surgery Lives: Spouse/ Significant Other Smoking Status: Never smoker Alcohol: None Drugs: None Review of Systems General: Denies: Chills, Fever, Sweats Eyes: Denies: Visual changes - bilaterally, Diplopia ENT: Denies: Rhinorrhea, Sore throat Cardiovascular: Reports: Chest pain. Denies: Palpitations Respiratory: Denies: Dyspnea, Cough, Dyspnea on exertion Gastrointestinal: Denies: Abdominal pain, Nausea, Vomiting, Diarrhea, Melena, Hematochezia Genitourinary: Denies: Dysuria, Hematuria, Frequency Musculoskeletal: Denies: Back pain, Extremity Pain Skin: Denies: Rash, Wounds Neurological: Denies: Headache, Weakness, Numbness Physical Exam Vital Signs/Narrative: Vital Signs Temp Pulse Resp BP Pulse Ox 02/05/20 08:22 97.8 F 61 15 149/91 H 98 Inital Vital Signs reviewed: Yes General: Well nourished, Well developed, No Acute Distress Head: Normocephalic, Atraumatic Eyes: Perrl, EOMI ENT: Moist mucous membranes, No rhinorrhea Neck: Supple, Nontender Cardiovascular: Regular rate, Regular rhythm, No murmurs Respiratory: No distress, CTA bilaterally, Chest nontender Abdomen: Soft, Nontender, Nondistended, Normal bowel sounds Back: Nontender, Normal Inspection Extremities: Nontender, No edema Skin: Normal color, No rash Neurological: Alert, Oriented x3, Cranial nerves II-XII grossly intact, Normal Strength, Normal Sensation Psychological: Normal affect, Normal Mood Diagnostic/Tx/Re-eval Clinical Impression(s) from Imaging Studies Chest X-Ray 02/05/20 08:35 IMPRESSION: Right mid lung field scarring/atelectasis. Electronically Signed: Rohan Hernandez DO at 9:01 EDT Tel [phone], Service support , Laboratory Data 02/05/20 02/05/20 08:24 08:24 WBC 9.9 RBC 4.95 Hgb 16.3 Hct 48.7 MCV 98.4 H MCH 32.9 H MCHC 33.5 RDW Std Deviation 49.3 H RDW Coeff of Linda 13.7 Plt Count 198 MPV 10.8 Immature Gran % (Auto) 0.700 Neut % (Auto) 54.2 Lymph % (Auto) 30.1 [place] % (Auto) 8.9 Eos % (Auto) 5.8 H Baso % (Auto) 0.3 Absolute Neuts (auto) 5.4 Absolute Lymphs (auto) 2.98 Nucleated RBC % 0 Sodium 140 Potassium 4.2 Chloride 104 Carbon Dioxide 28.0 Anion Gap 8 BUN 24 H Creatinine 1.37 H Estim Creat Clear Calc 53.76 Est GFR (MDRD) Af Amer 67 Est GFR (MDRD) Non-Af 55 L BUN/Creatinine Ratio 17.5 Glucose 179 H Calcium 8.9 Troponin I < 0.015 - Rhythm Strip Rhythm Strip: Sinus bradycardia Rate: 55 Ectopy: None - EKG Initial EKG Interpretation: Sinus Bradycardia - Bradycardia 55 bpm. VT interval 198 ms. QTC of 413 ms. 1 mm elevation in lead III. Evidence of T wave inversion with slight depression in leads I and aVL. - Medical Decision Making Appears well nontoxic. Vital signs within normal limits. Initial EKG shows single-lead elevation with T wave inversion and slight depression in the lateral leads. Troponin negative. No active chest pain. Patient took aspirin before arrival. Concern for unstable angina. Spoke with patient's special crimes investigator on-call Dr. Santiago who recommended transfer to a tertiary facility for high risk angioplasty versus repeat CABG. Spoke at length with the patient who was agreeable with transfer to [facility]. Spoke with heel varnisher Dr. Kelly who is agreeable with patient's transfer to telemetry floor and hospitalist admission. Patient transferred in stable condition. ED Disposition - Plan for ED Patient: Disposition: [facility] Diagnosis: Unstable angina, Acute electrocardiogram changes Referrals: Johann Bertrand MD [Primary Care Provider] -
--- NOTE | 2020-02-05 08:35 | RAD_ITS ---
STUDY: X-RAY CHEST REASON FOR EXAM: Male, 64 years old. PT C/O INTERMITTENT CHEST PRESSURE SINCE 0200. SL NITRO RESOLVES THE DISCOMFORT. STATES HAS HX OF SAME AND SEES [employer] AND THEY ARE UNABLE TO TREAT THE BLOCKAGES. HX OF CA''S BEFORE AND BYPASS SURGERY. TECHNIQUE: Frontal view COMPARISON: April 28, 2018 FINDINGS: Stable sternotomy wires. The lungs are expanded. Right mid lung field scarring/atelectasis. Normal size heart. Normal mediastinum and magdy. Normal visualized pulmonary arteries. Normal visualized aortic arch and descending thoracic aorta. Degenerative changes of the thoracic spine. Normal visualized ribs, clavicles, and shoulders. There is no demonstrated abnormality of the visualized soft tissue structures of the upper abdomen. RAD/Chest 1 View (Portable) IMPRESSION: Right mid lung field scarring/atelectasis. Electronically Signed: Rohan Hernandez DO at 9:01 EDT Tel [phone], Service support ,
[2020-02-05 08:36] LABS: Absolute Lymphocyte Count 2.98 X10^3/uL (0.83-4.51); Absolute Neutrophil Count 5.4 X10^3/uL (2.0-7.7); Basophil# 0.03 X10^3/uL; Basophil% 0.3 % (0-1); Eosinophil# 0.57 X10^3/uL; Eosinophils% 5.8 % (0-5); Hematocrit 48.7 % (40-54); Hemoglobin 16.3 g/dL (13.0-16.5); Lymphocyte # 2.98 X10^3/ul (4.0); Lymphocyte % 30.1 % (19-41); Mean Corp Hgb Conc 33.5 g/dL (32-36); Mean Corpuscular Hgb 32.9 pg (27.0-32.0); Mean Corpuscular Volume 98.4 fL (80-94); Mean Platelet Vol. 10.8 fl (6.2-12.0); Monocyte# 0.88 X10^3/uL; Monocyte% 8.9 % (0-10); NRBC Flagged by Analyzer 0 % (0-5); Neutrophil # 5.36 X10^3/uL (2.7-7.7); Neutrophil % 54.2 % (47-70); Platelet Count 198 K/mm3 (150-450); RBC Distribution Width CV 13.7 % (11.6-14.6); RBC Distribution Width SD 49.3 fl (35.1-43.9); Red Blood Count 4.95 M/mm3 (4.6-6.2); White Blood Count 9.9 K/mm3 (4.4-11.0)
[2020-02-05 08:55] LABS: Anion Gap 8 (5-15); BUN 24 mg/dL (7-18); BUN/Creat Ratio 17.5 RATIO (10-20); Calcium,Total 8.9 mg/dL (8.5-10.1); Chloride 104 mmol/L (98-107); Creatinine, Serum 1.37 mg/dL (0.70-1.30); EST Glomerular Filtration Rate 55 mL/min (>60); Est Glom Filt Rate - Afr Amer 67 mL/min (>60); Estimated Creatinine Clearance 53.76 ml/min; Glucose 179 mg/dL (74-106); Potassium 4.2 mmol/L (3.5-5.1); Sodium Level 140 mmol/L (136-145)
[2020-02-05 09:51] VITALS: BP 110/62; PULSE 51; RESP 16; O2SAT 98
--- NOTE | 2020-02-05 10:10 | NURSING ---
MINESH MONACO , 30 MIN ETA
[2020-02-05 10:15] VITALS: BP 121/67; PULSE 48; RESP 16; TEMP 36.8; O2SAT 98
== END 2020-02-05 10:53 | disposition short-term general hospital (02) ==
PROVIDERS: Emergency Provider Emergency Medicine; PCP Family Medicine
DX: I25.110 Atherosclerotic heart disease of native coronary artery with unstable angina pectoris (principal); R94.31 Abnormal electrocardiogram [ECG] [EKG]; I10 Essential (primary) hypertension; E11.9 Type 2 diabetes mellitus without complications; I25.2 Old myocardial infarction; Z95.1 Presence of aortocoronary bypass graft; Z79.4 Long term (current) use of insulin; Z79.82 Long term (current) use of aspirin; Z79.02 Long term (current) use of antithrombotics/antiplatelets; Z79.84 Long term (current) use of oral hypoglycemic drugs; Z79.899 Other long term (current) drug therapy
CPT/HCPCS: 71045; 80048; 84484; 85025; 93005; 99285; A4216

== ENCOUNTER → 2020-03-17 07:44 | Outpatient (CLI) | payer MEDICARE, OTHER, SELFPAY ==
[2020-02-10 10:34] VITALS: BMI 29.2
--- NOTE | 2020-03-17 08:15 | AAAS_ITS ---
Reason For Study: AAA Aorta Measurements Aorta Doppler Measurements Proximal aorta measures1.63 x 1.66cm. in cross- Peak systolic flow velocities within the proximal sectional axis. aorta measure 103.4 cm/sec. Proximal aorta measures1.61cm. in longitudinal Peak systolic flow velocities within the mid aorta axis. measure 97.9 cm/sec. Mid aorta measures1.51 x 1.53cm. in cross- Peak systolic flow velocities within the distal sectional axis. aorta measure 88.8 cm/sec. Mid aorta measures1.50cm. in longitudinal axis. Distal aorta measures1.28 x 1.31cm. in cross- sectional axis. Distal aorta measures1.30cm. in longitudinal axis. Left Iliac Artery Left iliac artery measures 0.95 x 0.91 cm. in the cross-sectional axis. Left iliac artery measures 0.89 cm. in the longitudinal axis. Peak systolic velocity in the left iliac artery measures 86.9 cm/sec. Right Iliac Artery Right iliac artery measures 0.99 x 0.93 cm. in the cross-sectional axis. Right iliac artery measures 0.93 cm. in the longitudinal axis. Peak systolic velocity in the right iliac artery measures 101.5 cm/sec. Procedure Aorta IVC Iliac vasculature or bypass grafts [id number]. Exam performed in department. Interpretation Summary Maximal abdominal aortic dimensions proximally at 1.63 x 1.66 cm Essentially normal aortic flow Left common iliac 0.95 x 0.91 cm Right common iliac 0.99 x 0.93 cm Ordering Physician: Rodríguez Srivastava Referring Physician: Gonsalo Bertrand MD Performed By: Karolina Reyna RVT
== END ==
PROVIDERS: PCP Family Medicine; Referring Provider Internal Medicine Cardiovascular Disease; Visit Provider Internal Medicine Cardiovascular Disease
DX: I25.798 Atherosclerosis of other coronary artery bypass graft(s) with other forms of angina pectoris (principal)
CPT/HCPCS: 76706

== ENCOUNTER 2020-05-04 08:00 | Outpatient (RCR) | payer MEDICARE, OTHER, SELFPAY ==
[2020-02-10 10:34] VITALS: BMI 29.2
== END 2020-05-04 23:59 ==
LOC: CR 08:00
PROVIDERS: PCP Family Medicine; Referring Provider Internal Medicine Cardiovascular Disease; Visit Provider Internal Medicine Cardiovascular Disease
DX: I25.798 Atherosclerosis of other coronary artery bypass graft(s) with other forms of angina pectoris (principal)
CPT/HCPCS: 92971; G0166

== ENCOUNTER 2020-05-30 08:00 | Outpatient (RCR) | payer MEDICARE, OTHER, SELFPAY ==
[2020-02-10 10:34] VITALS: BMI 29.2
== END 2020-06-04 23:59 ==
LOC: CR 08:00
PROVIDERS: PCP Family Medicine; Referring Provider Internal Medicine Cardiovascular Disease; Visit Provider Internal Medicine Cardiovascular Disease
DX: I25.798 Atherosclerosis of other coronary artery bypass graft(s) with other forms of angina pectoris (principal)
CPT/HCPCS: 92971; G0166

== ENCOUNTER 2020-10-11 08:32 | Outpatient (RCR) | payer MEDICARE, OTHER, SELFPAY ==
[2020-05-26 10:05] VITALS: BMI 29.8
[2020-10-11] MEDS: COVID-19 VACC, MRNA(PFIZER)/PF 30 MCG/0.3 ML SYRINGE IM (07:04)
[2020-11-01] MEDS: COVID-19 VACC, MRNA(PFIZER)/PF 30 MCG/0.3 ML SYRINGE IM (06:59)
== END 2021-01-10 23:59 ==
LOC: IMMUN 08:32
PROVIDERS: PCP Family Medicine; Referring Provider Family Medicine; Visit Provider Family Medicine
DX: Z23 Encounter for immunization (principal)
CPT/HCPCS: 0001A; 0002A; 91300

== ENCOUNTER → 2021-02-09 09:00 | Outpatient (CLI) | payer MEDICARE, OTHER, SELFPAY ==
[2020-12-23 08:50] VITALS: BMI 27.5
== END ==
PROVIDERS: PCP Family Medicine; Visit Provider Internal Medicine Pulmonary Disease
DX: G47.33 Obstructive sleep apnea (adult) (pediatric) (principal)
CPT/HCPCS: 98960; G0463

== ENCOUNTER 2021-08-28 15:04 | Outpatient (CLI) | payer MEDICARE, OTHER, SELFPAY | END 2021-08-28 23:59 | disposition short-term general hospital (02) | LOC: SL 15:05 | PROVIDERS: PCP Family Medicine; Visit Provider Internal Medicine Pulmonary Disease | DX: Z46.89 Encounter for fitting and adjustment of other specified devices (principal) ==

== ENCOUNTER 2021-09-11 09:00 | Outpatient (CLI) | payer MEDICARE, OTHER, SELFPAY | END 2021-09-11 23:59 | disposition home or self-care (01) | LOC: SL 10:21 | PROVIDERS: PCP Family Medicine; Visit Provider Internal Medicine Pulmonary Disease | DX: Z46.89 Encounter for fitting and adjustment of other specified devices (principal) ==

== ENCOUNTER 2021-11-08 09:13 | Outpatient (CLI) | payer MEDICARE, OTHER, SELFPAY | END 2021-11-08 23:59 | disposition home or self-care (01) | LOC: SL 09:15 | PROVIDERS: PCP Family Medicine; Visit Provider Nurse Practitioner Family | DX: Z00.00 Encounter for general adult medical examination without abnormal findings (principal) ==

== ENCOUNTER → 2021-12-25 | Outpatient (CLI) | payer MEDICARE, OTHER, SELFPAY ==
[2021-12-25 17:48] LABS: Absolute Lymphocyte Count 3.21 X10^3/uL (0.83-4.51); Absolute Neutrophil Count 4.1 X10^3/uL (2.0-7.7); Basophil# 0.02 X10^3/uL; Basophil% 0.2 % (0-1); Eosinophil# 0.26 X10^3/uL; Eosinophils% 3.1 % (0-5); Hematocrit 45.7 % (40-54); Hemoglobin 15.2 g/dL (13.0-16.5); Lymphocyte # 3.21 X10^3/ul (0.83-4.51); Lymphocyte % 37.9 % (19-41); Mean Corp Hgb Conc 33.3 g/dL (32-36); Mean Corpuscular Volume 99.3 fL (80-94); Mean Platelet Vol. 10.2 fl (6.2-12.0); Monocyte# 0.83 X10^3/uL; Monocyte% 9.8 % (0-10); NRBC Flagged by Analyzer 0 % (0-5); Neutrophil # 4.12 X10^3/uL (2.7-7.7); Neutrophil % 48.8 % (47-70); Platelet Count 195 K/mm3 (150-450); RBC Distribution Width SD 47.1 fl (35.1-43.9); White Blood Count 8.5 K/mm3 (4.4-11.0)
[2021-12-25 18:18] LABS: Anion Gap 5 (5-15); BUN 17 mg/dL (7-18); BUN/Creat Ratio 13.9 RATIO (10-20); Calcium,Total 8.9 mg/dL (8.5-10.1); Chloride 106 mmol/L (98-107); Creatinine, Serum 1.22 mg/dL (0.70-1.30); EST Glomerular Filtration Rate 63 mL/min (>60); Est Glom Filt Rate - Afr Amer 76 mL/min (>60); Glucose 175 mg/dL (74-106); Potassium 4.1 mmol/L (3.5-5.1); Sodium Level 142 mmol/L (136-145)
== END | disposition home or self-care (01) ==
LOC: MFPLAB 17:00
PROVIDERS: Nurse Practitioner Family; PCP Family Medicine; Visit Provider Family Medicine
DX: R42 Dizziness and giddiness (principal)
CPT/HCPCS: 36415; 80048; 85025

== ENCOUNTER 2022-02-10 09:36 | Emergency (ER) | payer MEDICARE, OTHER, SELFPAY ==
[2022-02-10 09:37] VITALS: BP 125/76; PULSE 76; RESP 14; TEMP 36.3; O2SAT 100; BMI 23.6
--- NOTE | 2022-02-10 09:54 | RAD_ITS ---
STUDY: X-RAY - RIGHT SHOULDER REASON FOR EXAM: Male, 66 years old. Injury/Pain TECHNIQUE: 4 view(s) of the shoulder. COMPARISON: Chest x-ray dated February 05, 2020 FINDINGS: There is moderate narrowing and cortical osteophyte formation of the glenohumeral articulation. Moderate calcific tendinitis in the expected region of the supraspinatus, as well as several small peripheral loose bodies are also present within the joint space. Normal acromioclavicular joint. Normal acromion. No fracture is present. The soft tissue structures are unremarkable. Normal visualized pulmonary apex. RAD/Shoulder min 2 Views IMPRESSION: Moderate osteoarthritis of the shoulder joint Electronically Signed: Redd Nelson MD at 10:46 EDT ,
--- NOTE | 2022-02-10 09:55 | EX.ED.UPPERE ---
HPI <RENETTA Baldwin - Last Filed: 02/10/22 10:54> History of Present Illness Chief Complaint: Upper Extremity Injury Narrative Narrative: 66-year-old male presents with right shoulder pain that started 4 days ago. He can pinpoint the area in his right shoulder that hurts with movement whenever his shoulder gets to about 90 degrees. He has no weakness, numbness, or tingling. No neck pain or radicular symptoms. There was no trauma or falls. He denies any chest pain or shortness of breath and again this is not radiating pain, just pinpoint pain in 1 location. [facility] <RENETTA Baldwin - Last Filed: 02/10/22 10:54> [facility] Medical History (Updated 02/10/22 @ 10:28 by RENETTA Baldwin) Atherosclerosis of coronary artery bypass graft without angina pectoris Atherosclerosis of [place] coronary artery of [place] heart without angina pectoris Diabetes Essential (primary) hypertension Heart disease History of myocardial infarction Ischemic cardiomyopathy Kidney stones Obstructive sleep apnea Prostate cancer Pure hypercholesterolemia PVCs (premature ventricular contractions) Home Medications allopurinol 100 mg tablet 100 mg PO DAILYCM 05/28/13 [History Last Taken 02/04/20] ascorbic acid (vitamin C) 500 mg tablet 500 mg PO DAILY@0800 05/28/13 [History Last Taken 02/04/20] famotidine 20 mg tablet 20 mg PO DAILY 05/28/13 [History Last Taken 02/05/20] magnesium 250 mg tablet 250 mg PO DAILY 05/28/13 [History Last Taken 02/04/20] clopidogrel 75 mg tablet 75 mg PO DAILY 09/11/13 [History Last Taken 02/05/20] ranolazine 500 mg tablet,extended release,12 hr 1,000 tab PO BID 09/11/13 [History Last Taken 02/04/20] metoprolol tartrate 100 mg tablet 100 mg PO BID 03/24/18 [History Last Taken 02/05/20] ezetimibe 10 mg tablet 10 mg PO DAILY #90 tabs 05/09/18 [Rx Last Taken 02/05/20] folic acid 1 mg tablet 1 mg PO DAILY 10/13/18 [History Last Taken 02/05/20] aspirin 81 mg chewable tablet 81 mg PO DAILY #1 TAB 02/10/20 [Rx Last Taken Unknown] empagliflozin 25 mg tablet 12.5 mg PO DAILY 02/10/20 [History Last Taken Unknown] isosorbide mononitrate 60 mg tablet,extended release 24 hr 60 mg PO DAILY #30 tabs 02/10/20 [Rx Last Taken Unknown] nitroglycerin 0.4 mg sublingual tablet 0.4 mg sublingual Q5-15M PRN Pain 02/10/20 [History Last Taken Unknown] metformin 850 mg tablet 425 mg PO BID 05/26/20 [History Last Taken Unknown] fluticasone propionate 50 mcg/actuation nasal spray,suspension (Flonase Allergy Relief) 1 spray intranasal DAILY PRN Allergic Symptoms 12/23/20 [History Last Taken Unknown] rosuvastatin 40 mg tablet 40 mg PO DAILY 12/23/20 [History Last Taken Unknown] semaglutide 1 mg/dose (2 mg/1.5 mL) subcutaneous pen injector (Ozempic) 1 mg subcut QWEEK 12/23/20 [History Last Taken Unknown] insulin glargine 100 unit/mL (3 mL) subcutaneous pen 38 unit subcut DAILY 07/03/21 [History Last Taken Unknown] insulin glargine 100 unit/mL (3 mL) subcutaneous pen 38 unit subcut QHS 07/03/21 [History Last Taken Unknown] Allergy/AdvReac Type Severity Reaction Status Date / Time No Known Allergies Allergy Verified 02/10/22 09:39 Family History (Reviewed 12/20/21 @ 09:17 by Alondra Medina ELEMENTARY READING SPECIALIST, ELEMENTARY READING SPECIALIST-C) Father CAD (coronary artery disease) <55 Mother Diabetes Brother CAD (coronary artery disease) Other CVA (cerebral vascular accident) Surgical History bone spur removal R middle finger DIP jt H/O hernia repair History of coronary artery bypass surgery (~01/20/96) History of left heart catheterization (LHC) (~02/08/20) History of prostatectomy (~2006) Social History (Reviewed 12/20/21 @ 09:17 by Alondra Medina ELEMENTARY READING SPECIALIST, ELEMENTARY READING SPECIALIST-C) Smoking Status: Never smoker alcohol intake: current alcohol intake frequency: a few times a month caffeine: Yes Type: coffee Number of servings: 3 ROS <RENETTA Baldwin - Last Filed: 02/10/22 10:54> ROS ED ROS Narrative Constitutional: Negative for fever, chills, malaise. Eyes: Negative for visual change. ENT: Negative for sore throat, ear pain, rhinorrhea. CVS: Negative for palpitations, chest pain, syncope. Respiratory: Negative for shortness of breath, cough, orthopnea. GI: Negative for abdominal pain, nausea, vomiting. : Negative for dysuria, hematuria or frequency. Neuro: Negative for headache, motor/sensory dysfunction. Skin: Negative for rash, abscess, or wound. Musc: Positive for shoulder pain. No swelling, trauma. Heme: Negative for easy bruising, bleeding, lymphadenopathy. EXAM <RENETTA Baldwin - Last Filed: 02/10/22 10:54> Physical Exam Narrative Exam Narrative: CONST: Patient sitting in no acute distress. EYES: Normal inspection. NECK: Normal inspection. RESP: No respiratory distress, CTAB. CVS: Regular rate and rhythm, no murmur, no gallop. SKIN: Color normal, no rash, warm, dry, intact. EXTREMITIES: Normal appearance of bilateral upper extremities. Pinpoint tenderness over proximal right biceps tendon. No other bony tenderness of the upper extremity. Full active and passive range of motion, 5/5 strength, normal sensation, 2+ radial pulses. NEURO: Oriented x4. PSYCH: Normal affect. Const Vital Signs: 02/10/22 09:37 Temperature 97.3 F L Temperature Source Temporal Pulse Rate 76 Respiratory Rate 14 Blood Pressure 125/76 H Blood Pressure Mean 92 Pulse Ox 100 Oxygen Delivery Method Room Air MDM <RENETTA Baldwin - Last Filed: 02/10/22 10:54> [facility] Narrative Medical decision making narrative: PA: Patient has pinpoint tenderness over his right biceps tendon. There was no trauma. He has full range of motion, normal strength and sensation, strong distal pulses. No rotator cuff weakness present. X-ray shows osteoarthritis but no fracture or dislocation. Clinically he has biceps tendinitis. We recommended [id number] analgesia and he was given orthopedic follow-up and discharged in stable condition. 1. Right shoulder pain 2. Right biceps tendinitis I have personally performed a face to face assessment of the patient and have reviewed the MADDY Note. I performed a substantive portion of the visit including all aspects of the following. My bullock findings include: History is right shoulder pain for 3 to 4 days. He has 1 area right in front where it hurts. He states his elbow and hand is fine. It just hurts if he lifts his shoulder forward in flexion or AB duction. No fevers chills sweats. No recent infections. No trauma or injury. No known repetitive motion issues. Rest makes it better and palpation or lifting shoulder above his head makes it worse. Exam shows patient is nontoxic. He looks well. He states he feels great other than the shoulder. He has isolated tenderness to the anterior portion of the humerus on the right. This is really in the bicipital groove. He has some discomfort with bicep use but it is strong and intact. No coracoid tenderness. I can passively move the shoulder through good range of motion without any pain. Its not warm or red. I have no indication at all of a septic joint. Medical Decison Making: We will do x-rays of the shoulder. I think this is likely tendinitis. He states he is taken Motrin at home and it helps. However, with his other illnesses I would like to limit this. <Dr. Troy Eason MD - Last Filed: 02/10/22 10:23> [facility] Narrative Medical decision making narrative: I have personally performed a face to face assessment of the patient and have reviewed the MADDY Note. I performed a substantive portion of the visit including all aspects of the following. My bullock findings include: History is right shoulder pain for 3 to 4 days. He has 1 area right in front where it hurts. He states his elbow and hand is fine. It just hurts if he lifts his shoulder forward in flexion or AB duction. No fevers chills sweats. No recent infections. No trauma or injury. No known repetitive motion issues. Rest makes it better and palpation or lifting shoulder above his head makes it worse. Exam shows patient is nontoxic. He looks well. He states he feels great other than the shoulder. He has isolated tenderness to the anterior portion of the humerus on the right. This is really in the bicipital groove. He has some discomfort with bicep use but it is strong and intact. No coracoid tenderness. I can passively move the shoulder through good range of motion without any pain. Its not warm or red. I have no indication at all of a septic joint. Medical Decison Making: We will do x-rays of the shoulder. I think this is likely tendinitis. He states he is taken Motrin at home and it helps. However, with his other illnesses I would like to limit this. Discharge Plan Triage Chief Complaint: Upper Extremity Injury ED Midlevel Provider: Nicolle Butterfield ED Provider: Troy Eason Dx/Rx/DC Orders Clinical Impression: Biceps tendinitis of right shoulder Instructions: Biceps Tendonitis Proximal Prescriptions: No Action metoprolol tartrate 100 mg tablet 100 mg PO BID folic acid 1 mg tablet 1 mg PO DAILY empagliflozin 25 mg tablet 12.5 mg PO DAILY nitroglycerin 0.4 mg tablet, sublingual 0.4 mg SUBLINGUAL Q5-15M PRN (Reason: Pain) Rx Instructions: do not exceed 3 doses per episode isosorbide mononitrate 60 mg tablet extended release 24 hr 60 mg PO DAILY Qty: 30 3RF aspirin 81 mg tablet,chewable 81 mg PO DAILY Qty: 1 0RF fluticasone propionate [Flonase Allergy Relief] 50 mcg/actuation spray,suspension 1 spray INTRANASAL DAILY PRN (Reason: Allergic Symptoms) Rx Instructions: administer into each nostril metformin 850 mg tablet 425 mg PO BID rosuvastatin 40 mg tablet 40 mg PO DAILY Ozempic 1 mg/dose (2 mg/1.5 mL) pen injector 1 mg subcut QWEEK allopurinol 100 MG tablet 100 mg PO DAILYCM famotidine 20 MG tablet 20 mg PO DAILY ascorbic acid (vitamin C) 500 MG tablet 500 mg PO DAILY@0800 magnesium 250 MG tablet 250 mg PO DAILY ranolazine 500 MG tablet 1,000 tab PO BID clopidogrel 75 MG tablet 75 mg PO DAILY insulin glargine 100 unit/mL (3 mL) insulin pen 38 unit SC QHS insulin glargine 100 unit/mL (3 mL) insulin pen 38 unit SC DAILY ezetimibe 10 mg tablet 10 mg PO DAILY Qty: 90 3RF Primary Care Provider: Johann Bertrand Referrals: Johann Bertrand MD [Primary Care Provider] - Aquiles Sy MD [STAFF PHYSICIAN] - Disposition Disposition: Home, Self Care
[2022-02-10 10:54] VITALS: RESP 18
== END 2022-02-10 11:04 | disposition home or self-care (01) ==
PROVIDERS: Emergency Provider Emergency Medicine; PCP Family Medicine; Visit Provider Emergency Medicine
DX: M75.21 Bicipital tendinitis, right shoulder (principal); E11.9 Type 2 diabetes mellitus without complications; Z79.4 Long term (current) use of insulin; M19.011 Primary osteoarthritis, right shoulder; I10 Essential (primary) hypertension; I25.5 Ischemic cardiomyopathy; E78.00 Pure hypercholesterolemia, unspecified; I25.10 Atherosclerotic heart disease of native coronary artery without angina pectoris; I25.2 Old myocardial infarction; G47.33 Obstructive sleep apnea (adult) (pediatric); Z85.46 Personal history of malignant neoplasm of prostate; Z87.442 Personal history of urinary calculi; Z79.899 Other long term (current) drug therapy; Z79.82 Long term (current) use of aspirin; Z95.1 Presence of aortocoronary bypass graft
CPT/HCPCS: 73030; 99282

== ENCOUNTER → 2022-05-16 | Outpatient (CLI) | payer MEDICARE, OTHER, SELFPAY ==
--- NOTE | 2022-05-16 14:43 | RAD_ITS ---
STUDY: X-RAY - LEFT KNEE REASON FOR EXAM: Male, 67 years old. PAIN TECHNIQUE: 3 view(s) of the knee. COMPARISON: None. FINDINGS: Mild tricompartmental joint space narrowing. Mild osteophytic spurring upper lower pole of patella posteriorly. Surgical jose f are seen in the distal thigh and proximal leg. Moderate atherosclerotic vascular calcification distal SFA and popliteal artery. The soft tissue structures are unremarkable. RAD/Knee 4 or More Views IMPRESSION: Osteoarthritis mild. Electronically Signed: Moses Abebe MD, ALINA at 9:11 EDT ,
== END | disposition home or self-care (01) ==
LOC: MTRAD 14:41
PROVIDERS: PCP Family Medicine; Referring Provider Family Medicine; Visit Provider Family Medicine
DX: M25.562 Pain in left knee (principal)
CPT/HCPCS: 73564

== ENCOUNTER → 2023-02-11 | Outpatient (CLI) | payer MEDICARE, OTHER, SELFPAY | END | disposition home or self-care (01) | LOC: LABSPEC 15:12 | PROVIDERS: PCP Family Medicine; Referring Provider Nurse Practitioner Family; Visit Provider Nurse Practitioner Family | DX: R30.0 Dysuria (principal) | CPT/HCPCS: 87086; 87088; 87186 ==

== ENCOUNTER → 2023-03-29 | Outpatient (CLI) | payer MEDICARE, OTHER, SELFPAY | END | disposition home or self-care (01) | LOC: SL 09:24 | PROVIDERS: PCP Family Medicine; Visit Provider Internal Medicine Pulmonary Disease | DX: G47.33 Obstructive sleep apnea (adult) (pediatric) (principal) ==

== ENCOUNTER → 2023-08-21 | Outpatient (CLI) | payer MEDICARE, OTHER, SELFPAY ==
--- OUTSIDE RECORDS SUMMARY | 2023-08-21 11:47 | XMS RPT_ITS | CCD ---
Author Name Unknown Address Formerly [facility] [place] [address] Organization [facility] Care Team Providers Care Mixing Machine Feeder Name Role Phone Neville Casey Unavailable Unavailable Neville Casey Unavailable Unavailable Medications Completed/Discontinued Medications Medication Drug Class(es) Dates Sig (Normalized) Sig (Original) allopurinol 100 mg oral tablet (2 sources) Xanthine Oxidase Inhibitor Start: 01-02-2011 take 1 tablet by mouth once daily ALLOPURINOL 100 MG TABS One tablet by mouth daily ALLOPURINOL [id number] Helena Ingram ascorbic acid 500 mg oral tablet (2 sources) Start: 01-02-2011 take 1 tablet by mouth once daily VITAMIN C 500 MG TABS One tablet by mouth daily ASCORBIC ACID [id number] Helena Ingram aspirin 325 mg oral tablet (2 sources) Nonsteroidal Anti-inflammatory Drug Start: 01-02-2011 take 1 tablet by mouth once daily ASPIRIN 325 MG TABS One tablet by mouth daily ASPIRIN [id number] Helena Ingram clopidogrel 75 mg oral tablet (2 sources) P2Y12 Platelet Inhibitor Start: 06-16-2013 take 1 tablet by mouth once daily CLOPIDOGREL BISULFATE 75 MG TABS One tablet by mouth daily CLOPIDOGREL BISULFATE [id number] Robert Thapa MD ezetimibe 10 mg oral tablet (4 sources) Dietary Cholesterol Absorption Inhibitor Start: 01-02-2011 take 1 tablet by mouth once daily ZETIA 10 MG TABS One tablet by mouth daily EZETIMIBE [id number] BRYCE WalkerC famotidine 20 mg oral tablet (2 sources) Histamine-2 Receptor Antagonist Start: 01-02-2011 take 1 tablet by mouth once daily PEPCID 20 MG TABS One tablet by mouth daily FAMOTIDINE [id number] Helena Ingram fluticasone propionate 0.05 mg/actuat metered dose nasal spray (2 sources) Corticosteroid Start: 08-18-2014 FLONASE 50 MCG/ACT SUSP Take as directed FLUTICASONE PROPIONATE [id number] BRYCE WalkerC folic acid 1 mg oral tablet (2 sources) Start: 01-02-2011 take 1 tablet by mouth once daily FOLIC ACID TABS (0.8Mg) One tablet by mouth daily FOLIC ACID TABS [id number] Helena Ingram fosinopril sodium 10 mg oral tablet (4 sources) Angiotensin Converting Enzyme Inhibitor Start: 01-02-2011 take 1 tablet by mouth once daily FOSINOPRIL SODIUM 10 MG TABS One tablet by mouth daily FOSINOPRIL SODIUM [id number] Bobby Potter MD insulin glargine 100 unt/ml injectable solution (2 sources) Insulin Analogue Start: 01-02-2011 LANTUS 100 UNIT/ML SOLN as directed INSULIN GLARGINE [id number] Rodríguez Srivastava MD INSULIN LISPRO (HUMAN) SOLN (2 sources) Insulin Analogue Start: 01-02-2011 HUMALOG SOLN INSULIN units/ml, Take as directed INSULIN LISPRO (HUMAN) SOLN [id number] Helena Joseward insulin, aspart, human 100 unt/ml injectable solution (2 sources) Insulin Analogue Start: 09-12-2015 NOVOLOG 100 UNIT/ML SOLN as directed INSULIN ASPART [id number] Rodríguez Srivastava MD magnesium (4 sources) Start: 01-02-2011 take 1 tablet by mouth once daily MAGNESIUM 500 MG TABS One half tablet by mouth daily MAGNESIUM [id number] Rodríguez Srivastava MD Problems Active Problems Problem Classification Problem Date Documented Date Episodic/Chronic Cardiac and circulatory congenital anomalies (2 sources) Left atrial abnormality; Translations: [Cardiomegaly] Onset: 05-15-2013 05-15-2013 Chronic Cardiac dysrhythmias (2 sources) Ventricular premature beats; Translations: [Ventricular premature depolarization] Onset: 01-02-2011 01-02-2011 Chronic Complication of device; implant or graft (2 sources) Arteriosclerosis of coronary artery bypass graft; Translations: [Atherosclerosis of coronary artery bypass graft(s) without angina pectoris] Onset: 01-02-2011 01-02-2011 Chronic Coronary atherosclerosis and other heart disease (10 sources) Coronary arteriosclerosis; Translations: [Coronary atherosclerosis] Onset: 01-02-2011 01-02-2011 Chronic Diabetes mellitus without complication (2 sources) Type 1 diabetes mellitus without complications; Translations: [Type 1 diabetes mellitus without complications] Onset: 01-02-2011 01-02-2011 Chronic Disorders of lipid metabolism (2 sources) Hyperlipidemia; Translations: [Hyperlipidemia, unspecified] Onset: 01-02-2011 01-02-2011 Chronic Essential hypertension (2 sources) Hypertensive disorder; Translations: [Essential (primary) hypertension] Onset: 01-02-2011 01-02-2011 Chronic Barbra-; endo-; and myocarditis; cardiomyopathy (4 sources) Heart valve disorder; Translations: [Endocarditis, valve unspecified] Onset: 05-15-2013 Resolved: 12-14-2016 05-15-2013 Chronic Unclassified (2 sources) Body mass index (BMI) 30.0-30.9, adult; Translations: [Body mass index (BMI) 30.0-30.9, adult] Onset: 02-17-2014 09-12-2015 Chronic Unclassified (2 sources) 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; Translations: [Presence of aortocoronary bypass graft] Onset: 01-02-2011 12-14-2016 Unclassified (2 sources) Long-term drug therapy; Translations: [Other retirement (current) drug therapy] Onset: 01-02-2011 01-02-2011 Past or Other Problems Problem Classification Problem Date Documented Da te Episodic/Chronic Coronary atherosclerosis and other heart disease (4 sources) Presence of aortocoronary bypass graft; Translations: [History of myocardial infarction] Onset: 01-02-2011 01-02-2011 Episodic Other circulatory disease (2 sources) Bruit; Translations: [Other specified symptoms and signs involving the circulatory and respiratory systems] Onset: 02-17-2014 02-17-2014 Episodic Other lower respiratory disease (2 sources) Dyspnea; Translations: [Shortness of breath] Onset: 01-02-2011 01-02-2011 Episodic Unclassified (4 sources) Cardiovascular stress test abnormal; Translations: [Abnormal result of other cardiovascular function study] Onset: 05-15-2013 Resolved: 12-14-2016 05-15-2013 Episodic Unclassified (4 sources) Body mass index (BMI) 29.0-29.9, adult; Translations: [Family history of ischemic heart disease and other diseases of the circulatory system] Onset: 02-17-2014 02-17-2014 Episodic Results Test Name Value Interpretation Reference Range Facil ity Vital Signs Date Time Vital Sign Value Performing Clinician Destiny wiley 06-19-2017 15:58-0500 BMI (Body Mass Index) 30.71 kg/m2 [facility] Work Phone: 06-19-2017 15:58-0500 BP Diastolic 78 mm[Hg] [facility] Work Phone: 06-19-2017 15:58-0500 BP Systolic 132 mm[Hg] [facility] Work Phone: 06-19-2017 15:58-0500 Height 175.26 cm [facility] Work Phone: 06-19-2017 15:58-0500 Pulse (Heart Rate) 64 /min [facility] Work Phone: 06-19-2017 15:58-0500 Respiratory Rate 18 /min [facility] Work Phone: 06-19-2017 15:58-0500 Weight 94.35 kg [facility] Work Phone: 03-19-2016 16:07-0400 BSA (Body Surface Area) 2.1 m2 [facility] Work Phone: Procedures Date Procedure Procedure Detail Performing Clinician Start: 06-19-2017 End: 06-19-2017 Follow Up Appt 6 months Rodríguez Srivastava MD Start: 06-19-2017 End: 06-19-2017 PFM Rodríguez Srivastava MD Start: 12-19-2016 End: 12-19-2016 Follow Up Appt 6 months Rodríguez Srivastava MD Start: 12-19-2016 End: 12-19-2016 PFM Rodríguez Srivastava MD Start: 10-22-2016 End: 10-22-2016 *Hepatic Function Panel Rodríguez Srivastava MD Start: 10-22-2016 End: 10-22-2016 Lipid 1996 panel - Serum or Plasma Rodríguez Srivastava MD Start: 04-05-2016 End: 04-23-2016 *Hepatic Function Panel Rodríguez Srivastava MD Start: 04-05-2016 End: 04-23-2016 Lipid 1996 panel - Serum or Plasma Rodríguez Srivastava MD Start: 03-19-2016 End: 03-19-2016 Follow Up Appt 9 months Rodríguez Srivastava MD Start: 03-19-2016 End: 03-19-2016 PFM Rodríguez Srivastava MD Start: 10-25-2015 End: 10-31-2015 *Hepatic Function Panel Rodríguez Srivastava MD Start: 10-25-2015 End: 10-31-2015 Lipid 1996 panel - Serum or Plasma Rodríguez Srivastava MD Start: 04-11-2015 End: 04-27-2015 *Hepatic Function Panel Rodríguez Srivastava MD Start: 04-11-2015 End: 04-27-2015 Lipid 1996 panel - Serum or Plasma Rodríguez Srivastava MD Start: 03-16-2015 End: 03-17-2015 Follow Up Appt 6 months Rodríguez Srivastava MD Start: 03-16-2015 End: 03-17-2015 MMM Rodríguez Srivastava MD Start: 10-08-2014 End: 10-08-2014 *Hepatic Function Panel Rodríguez Srivastava MD Start: 10-08-2014 End: 10-08-2014 Lipid 1996 panel - Serum or Plasma Rodríguez Srivastava MD Start: 08-18-2014 End: 08-18-2014 Follow Up Appt 6 months Fide erwin PA-C Work Phone: Start: 08-18-2014 End: 08-18-2014 PFM Fide Luke PA-C Work Phone: Start: 04-05-2014 End: 04-12-2014 *Hepatic Function Panel Rodríguez Srivastava MD Start: 04-05-2014 End: 04-12-2014 Lipid 1996 panel - Serum or Plasma Rodríguez Srivastava MD Start: 02-18-2014 End: 08-10-2014 Carotid duplex Rodríguez Srivastava MD Start: 02-17-2014 End: 02-18-2014 Ecg routine ecg w/least 12 lds w/i&r Rodríguez Srivastava MD Start: 02-17-2014 End: 08-10-2014 Follow Up Appt 6 months Rodríguez Srivastava MD Start: 02-17-2014 End: 08-10-2014 Follow Up Appt Other Rodríguez Srivastava MD Start: 02-17-2014 End: 08-10-2014 MMM Rodríguez Srivastava MD Start: 02-17-2014 End: 08-10-2014 Us abdominal real time w/image limited Rodríguez Srivastava MD Start: 10-03-2013 End: 10-07-2013 *Hepatic Function Panel Rodríguez Srivastava MD Start: 10-03-2013 End: 10-07-2013 Lipid 1996 panel - Serum or Plasma Rodríguez Srivastava MD Start: 09-29-2013 End: 08-10-2014 Complete sleep workup (PSG,CPAP as indicated) & Follow up Fide Luke PA-C Work Phone: Start: 09-29-2013 End: 09-29-2013 PFM Fide Luke PA-C Work Phone: Start: 06-16-2013 End: 06-16-2013 Follow Up Appt 3 months Fide erwin PA-C Work Phone: Start: 06-16-2013 End: 06-16-2013 MMM Fide Luke PA-C Work Phone: Start: 05-18-2013 End: 05-18-2013 Nurse, Teaching, Wound Check (no charge) Rodríguez Srivastava MD Start: 05-15-2013 End: 05-18-2013 *BMP Rodríguez Srivastava MD Start: 05-15-2013 End: 05-18-2013 aPTT in Platelet poor plasma by Coagulation assay Rodríguez Srivastava MD Start: 05-15-2013 End: 05-18-2013 CBC W Auto Differential panel - Blood Rodríguez Srivastava MD Start: 05-15-2013 End: 06-10-2013 Chest x-ray Rodríguez Srivastava MD Start: 05-15-2013 End: 05-18-2013 INR in Platelet poor plasma by Coagulation assay Rodríguez Srivastava MD Start: 05-15-2013 End: 06-10-2013 Left Heart Cath W/Grafts Rodríguez haji MD Start: 05-06-2013 End: 05-06-2013 Ecg routine ecg w/least 12 lds w/i&r Rodríguez Srivastava MD Start: 05-06-2013 End: 06-10-2013 Echocardiography Rodríguez Srivasatva MD Start: 05-06-2013 End: 05-06-2013 Follow Up Appt 6 months Rodríguez Srivastava MD Start: 05-06-2013 End: 06-10-2013 Nuclear stress test -exercise Rodríguez Srivastava MD Start: 05-06-2013 End: 05-06-2013 PFM Rodríguez Srivastava MD Start: 04-29-2013 End: 05-06-2013 *Hepatic Function Panel Bobby Potter MD Start: 04-29-2013 End: 05-06-2013 Lipid 1996 panel - Serum or Plasma Bobby Potter MD Start: 11-19-2012 End: 04-21-2013 *Hepatic Function Panel Bobby Potter MD Start: 11-19-2012 End: 2013 Lipid 1996 panel - Serum or Plasma Bobby Potter MD Start: 10-21-2012 End: 10-21-2012 Follow Up Appt 6 months Bobby Potter MD Start: 05-27-2012 End: 10-21-2012 Follow Up Appt 6 months Bobby Potter MD Start: 04-11-2012 End: 04-11-2012 *Hepatic Function Panel Bobby Potter MD Start: 04-11-2012 End: 04-11-2012 Lipid 1996 panel - Serum or Plasma Bobby Potter MD Start: 11-29-2011 End: 11-29-2011 Follow Up Appt 6 months Bobby Potter MD Start: 10-04-2011 End: 04-11-2012 *BMP Bobby Potter MD Start: 10-04-2011 End: 04-11-2012 *Hepatic Function Panel Bobby Potter MD Start: 10-04-2011 End: 10-25-2011 24 hour holter monitor Bobby Potter MD Start: 10-04-2011 End: 10-09-2011 Echocardiography Bobby Potter MD Start: 10-04-2011 End: 04-11-2012 Lipid 1996 panel - Serum or Plasma Bobby Potter MD Start: 10-04-2011 End: 10-25-2011 Magnesium [Mass/volume] in Serum or Plasma Bobby Potter MD Start: 10-04-2011 End: 10-18-2011 Nuclear stress test -adenosine Bobby Potter MD Start: 10-04-2011 End: 10-25-2011 Thyrotropin [Units/volume] in Serum or Plasma Bobby Potter MD Start: 10-04-2011 End: 10-25-2011 Thyroxine (T4) [Mass/volume] in Serum or Plasma Bobby Potter MD Plan of Treatment Date Care Activity Detail Author Start: 03-24-2018 End: 03-24-2018 Appointment Appointment [facility] Work Phone: Start: 06-19-2017 End: 06-19-2017 Appointment Appointment [facility] Work Phone: Start: 06-19-2017 End: 06-19-2017 Follow Up Appt 6 months Follow Up Appt 6 months [facility] Work Phone: Start: 06-19-2017 End: 06-19-2017 PFM PFM [facility] Work Phone: Start: 04-24-2017 End: 10-25-2016 *Hepatic Function Panel *Hepatic Function Panel [facility] Work Phone: Start: 04-24-2017 End: 10-25-2016 Lipid panel [AGGREGATE] *Lipid Profile CC PCP [facility] Work Phone: Start: 12-19-2016 End: 12-19-2016 Follow Up Appt 6 months Follow Up Appt 6 months [facility] Work Phone: Start: 12-19-2016 End: 12-19-2016 PFM PFM [facility] Work Phone: Start: 10-22-2016 End: 10-22-2016 *Hepatic Function Panel *Hepatic Function Panel [facility] Work Phone: Start: 10-22-2016 End: 10-22-2016 Lipid panel [AGGREGATE] *Lipid Profile CC PCP [facility] Work Phone: Start: 04-05-2016 End: 04-23-2016 *Hepatic Function Panel *Hepatic Function Panel [facility] Work Phone: Start: 04-05-2016 End: 04-23-2016 Lipid panel [AGGREGATE] *Lipid Profile CC PCP [facility] Work Phone: Start: 03-19-2016 End: 03-19-2016 Follow Up Appt 9 months Follow Up Appt 9 months [facility] Work Phone: Start: 03-19-2016 End: 03-19-2016 PFM PFM [facility] Work Phone: Start: 10-25-2015 End: 10-31-2015 *Hepatic Function Panel *Hepatic Function Panel [facility] Work Phone: Start: 10-25-2015 End: 10-31-2015 Lipid panel [AGGREGATE] *Lipid Profile CC PCP [facility] Work Phone: Start: 09-12-2015 End: 09-12-2015 Follow Up Appt 6 months Follow Up Appt 6 months [facility] Work Phone: Start: 09-12-2015 End: 09-12-2015 PFM PFM [facility] Work Phone: Start: 04-11-2015 End: 04-27-2015 *Hepatic Function Panel *Hepatic Function Panel [facility] Work Phone: Start: 04-11-2015 End: 04-27-2015 Lipid panel [AGGREGATE] *Lipid Profile CC PCP [facility] Work Phone: Start: 03-16-2015 End: 03-17-2015 Follow Up Appt 6 months Follow Up Appt 6 months [facility] Work Phone: Start: 03-16-2015 End: 03-17-2015 MMM MMM [facility] Work Phone: Start: 10-08-2014 End: 10-08-2014 *Hepatic Function Panel *Hepatic Function Panel [facility] Work Phone: Start: 10-08-2014 End: 10-08-2014 Lipid panel [AGGREGATE] *Lipid Profile CC PCP [facility] Work Phone: Start: 08-18-2014 End: 08-18-2014 Follow Up Appt 6 months Follow Up Appt 6 months [facility] Work Phone: Start: 08-18-2014 End: 08-18-2014 PFM PFM [facility] Work Phone: Start: 04-05-2014 End: 04-12-2014 *Hepatic Function Panel *Hepatic Function Panel [facility] Work Phone: Start: 04-05-2014 End: 04-12-2014 Lipid panel [AGGREGATE] *Lipid Profile CC PCP [facility] Work Phone: Start: 02-18-2014 End: 02-18-2014 Carotid duplex Carotid duplex [facility] Work Phone: Start: 02-17-2014 End: 02-18-2014 Ecg routine ecg w/least 12 lds w/i&r EKG (In office) [facility] Work Phone: Start: 02-17-2014 End: 08-10-2014 Follow Up Appt 6 months Follow Up Appt 6 months [facility] Work Phone: Start: 02-17-2014 End: 08-10-2014 Follow Up Appt Other Follow Up Appt Other [facility] Work Phone: Start: 02-17-2014 End: 08-10-2014 MMM MMM [facility] Work Phone: Start: 02-17-2014 End: 02-18-2014 Us abdominal real time w/image limited US Abdominal (aneurysm screening) [facility] Work Phone: Start: 10-03-2013 End: 10-07-2013 *Hepatic Function Panel *Hepatic Function Panel [facility] Work Phone: Start: 10-03-2013 End: 10-07-2013 Lipid panel [AGGREGATE] *Lipid Profile CC PCP [facility] Work Phone: Start: 09-29-2013 End: 09-29-2013 Complete sleep workup (PSG,CPAP as indicated) & Follow up Complete sleep workup (PSG,CPAP as indicated) & Follow up [facility] Work Phone: Start: 09-29-2013 End: 09-29-2013 PFM PFM [facility] Work Phone: Start: 06-16-2013 End: 06-16-2013 Follow Up Appt 3 months Follow Up Appt 3 months [facility] Work Phone: Start: 06-16-2013 End: 06-16-2013 MMM MMM [facility] Work Phone: Start: 05-15-2013 End: 05-18-2013 *BMP *BMP [facility] Work Phone: Start: 05-15-2013 End: 05-18-2013 aPTT *PTT-Partial Thromboplastin Time [facility] Work Phone: Start: 05-15-2013 End: 05-18-2013 CBC W Auto Differential panel - Blood *CBC without Diff [facility] Work Phone: Start: 05-15-2013 End: 06-10-2013 Chest x-ray X-Ray, Chest, PA & Lateral [facility] Work Phone: Start: 05-15-2013 End: 05-18-2013 INR Coag RelTime (PPP) *PT/INR [facility] Work Phone: Start: 05-15-2013 End: 05-15-2013 Left Heart Cath W/Grafts Left Heart Cath W/Grafts [facility] Work Phone: Start: 05-06-2013 End: 05-06-2013 Ecg routine ecg w/least 12 lds w/i&r EKG (In office) [facility] Work Phone: Start: 05-06-2013 End: 05-07-2013 Echocardiography Echocardiogram (complete) [facility] Work Phone: Start: 05-06-2013 End: 05-06-2013 Follow Up Appt 6 months Follow Up Appt 6 months [facility] Work Phone: Start: 05-06-2013 End: 05-07-2013 Nuclear stress test -exercise Nuclear stress test -exercise [facility] Work Phone: Start: 05-06-2013 End: 05-06-2013 PFM PFM [facility] Work Phone: Start: 04-29-2013 End: 05-06-2013 *Hepatic Function Panel *Hepatic Function Panel [facility] Work Phone: Start: 04-29-2013 End: 05-06-2013 Lipid panel [AGGREGATE] *Lipid Profile [facility] Work Phone: Start: 11-19-2012 End: 04-21-2013 *Hepatic Function Panel *Hepatic Function Panel [facility] Work Phone: Start: 11-19-2012 End: 2013 Lipid panel [AGGREGATE] *Lipid Profile [facility] Work Phone: Start: 10-21-2012 End: 10-21-2012 Follow Up Appt 6 months Follow Up Appt 6 months [facility] Work Phone: Start: 05-27-2012 End: 10-21-2012 Follow Up Appt 6 months Follow Up Appt 6 months [facility] Work Phone: Start: 05-07-2012 End: 04-11-2012 *Hepatic Function Panel *Hepatic Function Panel [facility] Work Phone: Start: 05-07-2012 End: 04-11-2012 Lipid panel [AGGREGATE] *Lipid Profile [facility] Work Phone: Start: 11-29-2011 End: 11-29-2011 Follow Up Appt 6 months Follow Up Appt 6 months [facility] Work Phone: Start: 10-04-2011 End: 04-11-2012 *BMP *BMP [facility] Work Phone: Start: 10-04-2011 End: 04-11-2012 *Hepatic Function Panel *Hepatic Function Panel [facility] Work Phone: Start: 10-04-2011 End: 10-04-2011 24 hour holter monitor 24 hour holter monitor [facility] Work Phone: Start: 10-04-2011 End: 10-04-2011 Echocardiography Echocardiogram (complete) [facility] Work Phone: Start: 10-04-2011 End: 10-04-2011 Follow Up Appt 6 weeks Follow Up Appt 6 weeks [facility] Work Phone: Start: 10-04-2011 End: 04-11-2012 Lipid panel [AGGREGATE] *Lipid Profile [facility] Work Phone: Start: 10-04-2011 End: 10-25-2011 Magnesium *Magnesium [facility] Work Phone: Start: 10-04-2011 End: 10-04-2011 Nuclear stress test -adenosine Nuclear stress test -adenosine [facility] Work Phone: Start: 10-04-2011 End: 10-25-2011 Thyroid stimulating hormone (TSH) *TSH [facility] Work Phone: Start: 10-04-2011 End: 10-25-2011 Thyroxine (T4) *T4 (Total) [facility] Work Phone: Patient Education [facility] Work Phone: Summary Purpose Family History No Family History Records FoundNo Family History Records Found Advance Directives No Advanced Directives Records FoundNo Advanced Directives Records Found Hospital Course Note HNO ID: [id number] Author: Navid Lawrence Service: Hospital Medicine Author Type: Physician Type: Discharge Summary Filed: 02/08/2020 12:53 PM Note Text: DISCHARGE SUMMARY PATIENT NAME: Gustavo Lange ADMISSION DATE: 02/05/2020 DISCHARGE DATE: 02/08/2020 ATTENDING PHYSICIAN: Jose Lawrence Code Status: Full Code Highest Readmission Risk Score: 10 The 30 day readmissions risk score is derived from an internally validated risk model which evaluates patient level characteristics, utilization history, medication orders and lab results up until the day of discharge. Patients with a score of 40 or above are considered highest risk for readmission. Specific patient level drivers will be listed at the bottom of the summary. CONSULTING TEAMS DURING HOSPITALIZATION: Cardiology: Dr. Kelly REASON FOR HOSPITALIZATION: chest pain DIAGNOSIS: Active Problems: Chest pain CAD (coronary artery disease) Diabetes (HCC) Hyperlipidemia OPERATIONS DURING HOSPITALIZATION: None PROCEDURES DURING HO (more content not included)... Note HNO ID: [id number] Author: Kacie Tamayo Service: Interventional Cardiology Author Type: Physician Type: Procedures Filed: 02/08/2020 9:21 AM Note Text: LEFT HEART CATHETERIZATION PROCEDURE NOTE Surgery/Procedure Date: 02/08/2020 Referring Physician: Clinical History: This is a 64 year old male with angina and history of CABG Consent: Informed consent was obtained after the risks, benefits, and alternatives to and of this procedure were discussed in detail with the patient. Procedure in Detail: The patient was brought to the cardiac catheterization laboratory, prepped and draped in the usual sterile fashion. Anxiolysis was achieved with intravenous and intravenous benadryl. Local anesthesia was achieved over the wirst with 1% lidocaine. A pre-flushed 6-Maltese sheath was inserted into the Left radial artery via the Seldinger technique without complications. Retrograde percutaneous diagnostic coronary angiography and left ventriculography were performed using a Randee left 4 catheter (more content not included)... Procedure Findings Note HNO ID: [id number] Author: Kacie Tamayo Service: Interventional Cardiology Author Type: Physician Type: Procedures Filed: 02/08/2020 9:21 AM Note Text: LEFT HEART CATHETERIZATION PROCEDURE NOTE Surgery/Procedure Date: 02/08/2020 Referring Physician: Clinical History: This is a 64 year old male with angina and history of CABG Consent: Informed consent was obtained after the risks, benefits, and alternatives to and of this procedure were discussed in detail with the patient. Procedure in Detail: The patient was brought to the cardiac catheterization laboratory, prepped and draped in the usual sterile fashion. Anxiolysis was achieved with intravenous and intravenous benadryl. Local anesthesia was achieved over the wirst with 1% lidocaine. A pre-flushed 6-Maltese sheath was inserted into the Left radial artery via the Seldinger technique without complications. Retrograde percutaneous diagnostic coronary angiography and left ventriculography were performed using a Randee left 4 catheter (more content not included)... Additional Source Comments (unrecognized sect ion and content) No Status Records FoundNo Status Records Found INFORMATION SOURCE (unrecogn ized section and content) DATE CREATED AUTHOR AUTHOR'S SHOAIB ATION 02/26/2020 [facility] FOR RECORDS PERTAINING TO PATIENTS WHO ARE OR HAVE BEEN ENROLLED IN A CHEMICAL DEPENDENCY/SUBSTANCEABUSE PROGRAM, SOME INFORMATION MAY BE OMITTED. This clinical summary was aggregated from multiple sources. Caution should be exercised in using it in the provision of clinical care. This summary normalizes information from multiple sources, and as a consequence, information in this document may materially change the coding, format and clinical context of patient data. In addition, data may be omitted in some cases. CLINICAL DECISIONS SHOULD BE BASED ON THE PRIMARY CLINICAL RECORDS. [facility] [email or web address] [facility]. provides no warranty or guarantee of the accuracy or completeness of information in this document.
[2023-08-21 15:15] LABS: Hematocrit 47.9 % (40-54); Mean Corp Hgb Conc 33.4 g/dL (32-36); Mean Corpuscular Hgb 33.1 pg (27.0-32.0); Mean Corpuscular Volume 99.2 fL (80-94); Mean Platelet Vol. 11.4 fl (6.2-12.0); Platelet Count 176 K/mm3 (150-450); RBC Distribution Width SD 47.5 fl (35.1-43.9); Red Blood Count 4.83 M/mm3 (4.6-6.2); White Blood Count 8.4 K/mm3 (4.4-11.0)
[2023-08-21 16:15] LABS: AST(SGOT) 28 U/L (15-37); Alanine Aminotransfer ALT/SGPT 42 U/L (16-61); Albumin, Serum 3.7 g/dL (3.2-5.0); Alkaline Phosphatase 74 U/L (45-117); Anion Gap 5 (5-15); BUN 21 mg/dL (7-18); Calcium,Total 9.2 mg/dL (8.5-10.1); Chloride 105 mmol/L (98-107); Creatinine, Serum 1.31 mg/dL (0.70-1.30); EST Glomerular Filtration Rate 58 mL/min (>60); Est Glom Filt Rate - Afr Amer 70 mL/min (>60); Globulin 3.6 g/dL (2.2-4.2); Glucose 178 mg/dL (74-106); PSA,Total - Annual Screen < 0.01 ng/mL (0.00-4.00); Protein, Total 7.3 g/dL (6.4-8.2); Sodium Level 140 mmol/L (136-145); Thyroid Stim Hormone (TSH) 1.45 uIU/mL (0.358-3.74)
== END | disposition home or self-care (01) ==
LOC: MFPLAB 11:29
PROVIDERS: PCP Family Medicine; Visit Provider Family Medicine
DX: E11.9 Type 2 diabetes mellitus without complications (principal); I25.10 Atherosclerotic heart disease of native coronary artery without angina pectoris; Z12.5 Encounter for screening for malignant neoplasm of prostate
CPT/HCPCS: 36415; 80053; 84153; 84403; 84443; 85027; G0103

== ENCOUNTER → 2023-08-22 | Outpatient (CLI) | payer MEDICARE, OTHER, SELFPAY ==
--- OUTSIDE RECORDS SUMMARY | 2023-08-22 08:16 | XMS RPT_ITS | CCD ---
Author Name Unknown Address [facility] [place] [address] Organization [facility] Care Team Providers Care Hose Stripper Name Role Phone Neville Casey Unavailable Unavailable Neville Casey Unavailable Unavailable Medications Completed/Discontinued Medications Medication Drug Class(es) Dates Sig (Normalized) Sig (Original) allopurinol 100 mg oral tablet (2 sources) Xanthine Oxidase Inhibitor Start: 01-02-2011 take 1 tablet by mouth once daily ALLOPURINOL 100 MG TABS One tablet by mouth daily ALLOPURINOL [id number] Helena Ingram ascorbic acid 500 mg oral tablet (2 sources) Start: 01-02-2011 take 1 tablet by mouth once daily VITAMIN C 500 MG TABS One tablet by mouth daily ASCORBIC ACID [id number] Helena Ingram aspirin 325 mg oral tablet (2 sources) Nonsteroidal Anti-inflammatory Drug Start: 01-02-2011 take 1 tablet by mouth once daily ASPIRIN 325 MG TABS One tablet by mouth daily ASPIRIN [id number] Helena Ingram clopidogrel 75 mg oral tablet (2 sources) P2Y12 Platelet Inhibitor Start: 06-16-2013 take 1 tablet by mouth once daily CLOPIDOGREL BISULFATE 75 MG TABS One tablet by mouth daily CLOPIDOGREL BISULFATE [id number] Robert Thapa MD ezetimibe 10 mg oral tablet (4 sources) Dietary Cholesterol Absorption Inhibitor Start: 01-02-2011 take 1 tablet by mouth once daily ZETIA 10 MG TABS One tablet by mouth daily EZETIMIBE [id number] BRYCE WalkerC famotidine 20 mg oral tablet (2 sources) Histamine-2 Receptor Antagonist Start: 01-02-2011 take 1 tablet by mouth once daily PEPCID 20 MG TABS One tablet by mouth daily FAMOTIDINE [id number] Hleena Ingram fluticasone propionate 0.05 mg/actuat metered dose nasal spray (2 sources) Corticosteroid Start: 08-18-2014 FLONASE 50 MCG/ACT SUSP Take as directed FLUTICASONE PROPIONATE [id number] BRYCE WalkerC folic acid 1 mg oral tablet (2 sources) Start: 01-02-2011 take 1 tablet by mouth once daily FOLIC ACID TABS (0.8Mg) One tablet by mouth daily FOLIC ACID TABS [id number] Helena Ingram fosinopril sodium 10 mg oral tablet (4 sources) Angiotensin Converting Enzyme Inhibitor Start: 01-02-2011 take 1 tablet by mouth once daily FOSINOPRIL SODIUM 10 MG TABS One tablet by mouth daily FOSINOPRIL SODIUM [id number] Bobby Potter MD insulin glargine 100 unt/ml injectable solution (2 sources) Insulin Analogue Start: 01-02-2011 LANTUS 100 UNIT/ML SOLN as directed INSULIN GLARGINE [id number] Rodríguez Srivastava MD INSULIN LISPRO (HUMAN) SOLN (2 sources) Insulin Analogue Start: 01-02-2011 HUMALOG SOLN INSULIN units/ml, Take as directed INSULIN LISPRO (HUMAN) SOLN [id number] Helena Joseward insulin, aspart, human 100 unt/ml injectable solution (2 sources) Insulin Analogue Start: 09-12-2015 NOVOLOG 100 UNIT/ML SOLN as directed INSULIN ASPART [id number] Rodríguez Srivastava MD magnesium (4 sources) Start: 01-02-2011 take 1 tablet by mouth once daily MAGNESIUM 500 MG TABS One half tablet by mouth daily MAGNESIUM [id number] Rodríguez Srivastava MD Problems Active Problems Problem [...] (2 sources) Long-term drug therapy; Translations: [Other half-way (current) drug therapy] Onset: 01-02-2011 01-02-2011 Past [...] MD Start: 05-06-2013 End: 06-10-2013 Echocardiography Rodríguez Srivastava MD Start: 05-06-2013 End: 05-06-2013 Follow Up [...] Author Start: 03-24-2018 End: 03-24-2018 Appointment Appointment [facility] Work Phone: Start: 06-19-2017 End: 06-19-2017 Appointment Appointment [facility] Work Phone: Start: 06-19-2017 End: 06-19-2017 Follow Up Appt 6 months Follow Up Appt 6 months [facility] Work Phone: Start: 06-19-2017 End: 06-19-2017 PFM PFM [facility] Work Phone: Start: 04-24-2017 End: 10-25-2016 *Hepatic Function Panel *Hepatic Function Panel [facility] Work Phone: Start: 04-24-2017 End: 10-25-2016 Lipid panel [AGGREGATE] *Lipid Profile CC PCP [facility] Work Phone: Start: 12-19-2016 End: 12-19-2016 Follow Up Appt 6 months Follow Up Appt 6 months [facility] Work Phone: Start: 12-19-2016 End: 12-19-2016 PFM PFM [facility] Work Phone: Start: 10-22-2016 End: 10-22-2016 *Hepatic Function Panel *Hepatic Function Panel [facility] Work Phone: Start: 10-22-2016 End: 10-22-2016 Lipid panel [AGGREGATE] *Lipid Profile CC PCP [facility] Work Phone: Start: 04-05-2016 End: 04-23-2016 *Hepatic Function Panel *Hepatic Function Panel [facility] Work Phone: Start: 04-05-2016 End: 04-23-2016 Lipid panel [AGGREGATE] *Lipid Profile CC PCP [facility] Work Phone: Start: 03-19-2016 End: 03-19-2016 Follow Up Appt 9 months Follow Up Appt 9 months [facility] Work Phone: Start: 03-19-2016 End: 03-19-2016 PFM PFM [facility] Work Phone: Start: 10-25-2015 End: 10-31-2015 *Hepatic Function Panel *Hepatic Function Panel [facility] Work Phone: Start: 10-25-2015 End: 10-31-2015 Lipid panel [AGGREGATE] *Lipid Profile CC PCP [facility] Work Phone: Start: 09-12-2015 End: 09-12-2015 Follow Up Appt 6 months Follow Up Appt 6 months [facility] Work Phone: Start: 09-12-2015 End: 09-12-2015 PFM PFM [facility] Work Phone: Start: 04-11-2015 End: 04-27-2015 *Hepatic Function Panel *Hepatic Function Panel [facility] Work Phone: Start: 04-11-2015 End: 04-27-2015 Lipid panel [AGGREGATE] *Lipid Profile CC PCP [facility] Work Phone: Start: 03-16-2015 End: 03-17-2015 Follow Up Appt 6 months Follow Up Appt 6 months [facility] Work Phone: Start: 03-16-2015 End: 03-17-2015 MMM MMM [facility] Work Phone: Start: 10-08-2014 End: 10-08-2014 *Hepatic Function Panel *Hepatic Function Panel [facility] Work Phone: Start: 10-08-2014 End: 10-08-2014 Lipid panel [AGGREGATE] *Lipid Profile CC PCP [facility] Work Phone: Start: 08-18-2014 End: 08-18-2014 Follow Up Appt 6 months Follow Up Appt 6 months [facility] Work Phone: Start: 08-18-2014 End: 08-18-2014 PFM PFM [facility] Work Phone: Start: 04-05-2014 End: 04-12-2014 *Hepatic Function Panel *Hepatic Function Panel [facility] Work Phone: Start: 04-05-2014 End: 04-12-2014 Lipid panel [AGGREGATE] *Lipid Profile CC PCP [facility] Work Phone: Start: 02-18-2014 End: 02-18-2014 Carotid duplex Carotid duplex [facility] Work Phone: Start: 02-17-2014 End: 02-18-2014 Ecg routine ecg w/least 12 lds w/i&r EKG (In office) [facility] Work Phone: Start: 02-17-2014 End: 08-10-2014 Follow Up Appt 6 months Follow Up Appt 6 months [facility] Work Phone: Start: 02-17-2014 End: 08-10-2014 Follow Up Appt Other Follow Up Appt Other [facility] Work Phone: Start: 02-17-2014 End: 08-10-2014 MMM MMM [facility] Work Phone: Start: 02-17-2014 End: 02-18-2014 Us abdominal real time w/image limited US Abdominal (aneurysm screening) [facility] Work Phone: Start: 10-03-2013 End: 10-07-2013 *Hepatic Function Panel *Hepatic Function Panel [facility] Work Phone: Start: 10-03-2013 End: 10-07-2013 Lipid panel [AGGREGATE] *Lipid Profile CC PCP [facility] Work Phone: Start: 09-29-2013 End: 09-29-2013 Complete sleep workup (PSG,CPAP as indicated) & Follow up Complete sleep workup (PSG,CPAP as indicated) & Follow up [facility] Work Phone: Start: 09-29-2013 End: 09-29-2013 PFM PFM [facility] Work Phone: Start: 06-16-2013 End: 06-16-2013 Follow Up Appt 3 months Follow Up Appt 3 months [facility] Work Phone: Start: 06-16-2013 End: 06-16-2013 MMM MMM [facility] Work Phone: Start: 05-15-2013 End: 05-18-2013 *BMP *BMP [facility] Work Phone: Start: 05-15-2013 End: 05-18-2013 aPTT *PTT-Partial Thromboplastin Time [facility] Work Phone: Start: 05-15-2013 End: 05-18-2013 CBC W Auto Differential panel - Blood *CBC without Diff [facility] Work Phone: Start: 05-15-2013 End: 06-10-2013 Chest x-ray X-Ray, Chest, PA & Lateral [facility] Work Phone: Start: 05-15-2013 End: 05-18-2013 INR Coag RelTime (PPP) *PT/INR [facility] Work Phone: Start: 05-15-2013 End: 05-15-2013 Left Heart Cath W/Grafts Left Heart Cath W/Grafts [facility] Work Phone: Start: 05-06-2013 End: 05-06-2013 Ecg routine ecg w/least 12 lds w/i&r EKG (In office) [facility] Work Phone: Start: 05-06-2013 End: 05-07-2013 Echocardiography Echocardiogram (complete) [facility] Work Phone: Start: 05-06-2013 End: [...] End: 05-06-2013 Lipid panel [AGGREGATE] *Lipid Profile [facility] Work Phone: Start: 11-19-2012 End: [...] Up Appt 6 months [facility] Work Phone: Start: 05-07-2012 End: 04-11-2012 *Hepatic Function Panel *Hepatic Function Panel [facility] Work Phone: Start: 05-07-2012 End: 04-11-2012 Lipid panel [AGGREGATE] *Lipid Profile [facility] Work Phone: Start: 11-29-2011 End: 11-29-2011 Follow Up Appt 6 months Follow Up Appt 6 months [facility] Work Phone: Start: 10-04-2011 End: 04-11-2012 *BMP *BMP [facility] Work Phone: Start: 10-04-2011 End: 04-11-2012 *Hepatic Function Panel *Hepatic Function Panel [facility] Work Phone: Start: 10-04-2011 End: 10-04-2011 24 hour holter monitor 24 hour holter monitor [facility] Work Phone: Start: 10-04-2011 End: 10-04-2011 Echocardiography Echocardiogram (complete) [facility] Work Phone: Start: 10-04-2011 End: 10-04-2011 Follow Up Appt 6 weeks Follow Up Appt 6 weeks [facility] Work Phone: Start: 10-04-2011 End: 04-11-2012 Lipid panel [AGGREGATE] *Lipid Profile [facility] Work Phone: Start: 10-04-2011 End: 10-25-2011 Magnesium *Magnesium [facility] Work Phone: Start: 10-04-2011 End: 10-04-2011 Nuclear stress test -adenosine Nuclear stress test -adenosine [facility] Work Phone: Start: 10-04-2011 End: 10-25-2011 Thyroid stimulating hormone (TSH) *TSH [facility] Work Phone: Start: 10-04-2011 End: 10-25-2011 Thyroxine (T4) *T4 (Total) [facility] Work Phone: Patient Education [facility] Work Phone: Summary Purpose Family History No Family History Records FoundNo Family History Records Found Advance Directives No Advanced Directives Records FoundNo Advanced Directives Records Found Hospital Course Note HNO ID: [id number] Author: Navid Lawrence Service: Hospital Medicine Author [...] (more content not included)... Note HNO ID: [id number] Author: Kacie Tamayo Service: Interventional Cardiology Author [...] the wirst with 1% lidocaine. A pre-flushed 6-Kinyarwanda sheath was inserted into the Left radial artery via the Seldinger technique without complications. Retrograde percutaneous diagnostic coronary angiography and left ventriculography were performed using a Randee left 4 catheter (more content not included)... Procedure Findings Note HNO ID: [id number] Author: Kacie Tamayo Service: Interventional Cardiology Author [...] the wirst with 1% lidocaine. A pre-flushed 6-Kinyarwanda sheath was inserted into the Left radial [...] AUTHOR AUTHOR'S SHOAIB ATION 02/26/2020 [facility] FOR RECORDS PERTAINING TO PATIENTS WHO [...] BE BASED ON THE PRIMARY CLINICAL RECORDS. [facility] [email or web address] [facility]. provides no warranty or guarantee of the accuracy or completeness of information in this document.
--- NOTE | 2023-08-22 08:25 | ECHOD_ITS ---
Reason For Study: Isch CMP Procedure This was a 2D Doppler, Color Flow transthoracic echocardiogram. The study was technically difficult. Exam performed in department. Left Ventricle Normal size and thickness. Severe inferior, posterior and lateral hypokinesis. Estimated LVEF 45%. Stage 1 diastolic dysfunction. Right Ventricle Normal right ventricle. Atria The left and right atria are normal. Mitral Valve Moderate (2+) mitral valve insufficiency. Tricuspid Valve Trivial tricuspid valve insufficiency. Unable to estimate RV systolic pressure due to insufficient tricuspid regurgitant envelope. Aortic Valve Trisinus/trileaflet aortic valve. Pulmonic Valve Trivial pulmonic valve insufficiency. Great Vessels Normal sized aortic root. Pericardium/Pleural No pericardial effusion. MMode/2D Measurements & Calculations LVIDd: 5.2 cm IVSd: 1.1 cm Ao root diam: 3.0 cm LVIDs: 4.0 cm LVPWd: 0.74 cm LA dimension: 4.3 cm RVDd: 2.5 cm FS: 23.1 % LAV(MOD-bp): 36.0 ml LVAd ap4: 25.8 cm2 SV(MOD-sp4): 33.8 ml LAV(MOD-bp) Indexed: 19.4 ml/m2 LVLd ap4: 7.1 cm LAV(MOD-sp2): 43.3 ml EDV(MOD-sp4): 77.6 ml LAV(MOD-sp4): 31.5 ml EDV(sp4-el): 79.4 ml LVAs ap4: 17.5 cm2 LVLs ap4: 5.9 cm ESV(MOD-sp4): 43.7 ml ESV(sp4-el): 44.4 ml EF(MOD-sp4): 43.6 % EF(sp4-el): 44.1 % SV(sp4-el): 35.0 ml LA A4 area: 13.4 cm2 RA A4 area: 9.9 cm2 TAPSE: 1.2 cm Time Measurements MV dec time: 0.32 sec Doppler Measurements & Calculations MV E max yovani: 52.4 cm/sec Lat Peak E' Yovani: 11.9 cm/sec Med Peak E' Yovani: 4.8 cm/sec MV A max yovani: 77.3 cm/sec E/E' lat: 4.4 E/E' med: 10.9 MV E/A: 0.68 MV V2 max: 83.5 cm/sec MV P1/2t max oyvani: 54.8 cm/sec Ao V2 max: 102.8 cm/sec MV max P.8 mmHg MV P1/2t: 113.3 msec Ao max P.2 mmHg MV V2 mean: 44.3 cm/sec MV dec slope: 141.8 cm/sec2 Ao V2 mean: 73.3 cm/sec MV mean P.92 mmHg Ao mean P.5 mmHg MV V2 VTI: 21.5 cm MVA(P1/2t): 1.9 cm2 Ao V2 VTI: 23.0 cm AV (velocity ratio): 0.77 LV V1 max: 85.8 cm/sec MR max yovani: 535.6 cm/sec PA V2 max: 120.4 cm/sec LV V1 max P.9 mmHg MR max P.8 mmHg PA V2 mean: 79.3 cm/sec LV V1 mean P.8 mmHg LV V1 mean: 63.4 cm/sec LV V1 VTI: 17.8 cm ECHO/Echo Complete Interpretation Summary Severe inferior, posterior and lateral hypokinesis. Estimated LVEF 45%. Stage 1 diastolic dysfunction. Moderate (2+) mitral valve insufficiency. Ordering Physician: Bob Vela Referring Physician: Gonsalo Bertrand Performed By: Cristian Ge RCS
== END | disposition home or self-care (01) ==
PROVIDERS: PCP Family Medicine; Referring Provider Nurse Practitioner Family; Visit Provider Nurse Practitioner Family
DX: I25.5 Ischemic cardiomyopathy (principal); I25.810 Atherosclerosis of coronary artery bypass graft(s) without angina pectoris; I25.10 Atherosclerotic heart disease of native coronary artery without angina pectoris
CPT/HCPCS: 93306

== ENCOUNTER → 2025-01-18 | Outpatient (CLI) | payer MEDICARE, OTHER, SELFPAY ==
--- NOTE | 2025-01-18 08:52 | CDU_ITS ---
Reason For Study Reason For Study: CAD Hx Rt. Velocities/BP Lt. Velocities/BP Prox CCA 68.3/8.8 cm/sec. Prox CCA 79.8/17.1 cm/sec. Mid CCA 65.2/9.1 cm/sec. Mid CCA 88.3/13.5 cm/sec. Dist CCA 66.3/12.4 cm/sec. Dist CCA 67.4/13.5 cm/sec. Prox ICA 45.6/12.5 cm/sec. Prox ICA 65.3/14.1 cm/sec. Mid ICA 47.4/13.3 cm/sec. Mid ICA 57.2/17.0 cm/sec. Dist ICA 33.9/9.0 cm/sec. Dist ICA 42.5/14.6 cm/sec. Rt. ICA/CCA = 0.7. Lt. ICA/CCA = 0.7. Prox ECA 112.0/0.0 cm/sec. Prox ECA 83.9/7.7 cm/sec. Rt. Vert. 31.7/5.5 cm/sec. Lt. Vert. 42.1/11.6 cm/sec. Right Extracranial There is heterogeneous, irregular atherosclerotic plaque noted in the right common carotid artery. There is intimal thickening but no significant atherosclerotic plaque noted in the right internal carotid artery. There is intimal thickening but no significant atherosclerotic plaque noted in the right external carotid artery. Antegrade flow is noted in the right vertebral artery. Left Extracranial There is heterogeneous, irregular atherosclerotic plaque noted in the left common carotid artery. There is intimal thickening but no significant atherosclerotic plaque noted in the left internal carotid artery. There is intimal thickening but no significant atherosclerotic plaque noted in the left external carotid artery. Antegrade flow is noted in the left vertebral artery. Procedure Carotid Duplex [id number]. This is a Carotid Duplex examination using B-mode, color flow and specral Doppler. Exam performed in department. VL/Carotid Duplex Ultrasound Interpretation Summary Normal right extracranial internal carotid. Normal left extracranial internal carotid. Patent and antegrade vertebrals bilaterally. Ordering Physician: Bob Vela Referring Physician: Gonsalo Bertrand MD Performed By: Kathy Travis RVT
--- OUTSIDE RECORDS SUMMARY | 2025-01-18 18:43 | XMS RPT_ITS | CCD ---
Author Organization [facility] ion [facility] Care Team Providers Care Sterile Instrument Technician Name Role Phone Neville Casey Unavailable Unavailable Neville Casey Unavailable Unavailable Dr. Johann Bertrand Primary Care Provider Dr. Johann Bertrand Referring Provider Adam AUTOMATIC MOLD SANDER, AUTOMATIC MOLD SANDERFlorecita Cantu Attending Provider Dr. Johann Bertrand Primary Care Provider Dr. Johann Bertrand Referring Provider Dane AUTOMATIC MOLD SANDER, ELENO-Sotero Arellano Attending Provider [phone] Johann Bertrand Primary Care Provider Dr. Johann Bertrand Referring Provider Dane AUTOMATIC MOLD SANDER, ELENO-Sotero Arellano Attending Provider [phone] Johann Bertrand Primary Care Provider Dr. Johnan Bertrand Referring Provider Dane AUTOMATIC MOLD SANDER, NICHELLE Arellano Attending Provider [phone] Gonsalo Bertrand Referring Unavailable Gonsalo Bertrand Primary Care Unavailable Bob Vela NP Attending Unavailable Gonsalo Bertrand Primary Care Unavailable Ronald Roberts Attending Unavailable Gonsalo Bertrand Referring Unavailable Gonsalo Bertrand Primary Care Unavailable Dane AUTOMATIC MOLD SANDERBob Referring Unavailable Dane AUTOMATIC MOLD SANDERBob Attending Unavailable Medications Current Medications Medication Drug Class(es) Dates Sig (Normalized) Sig (Original) allopurinol 100 mg oral tablet (10 sources) Xanthine Oxidase Inhibitor Start: 01-02-2011 take 100 mg by mouth once daily at mealtime Allopurinol Active 100 MG PO DAILY WITH MEALS May 27, 2013 11:00pm ascorbic acid 500 mg oral tablet (10 sources) Start: 01-02-2011 take 500 mg by mouth once daily Ascorbic Acid (Vitamin C) Active 500 MG PO DAILY@0800 May 27, 2013 11:00pm aspirin 81 mg chewable tablet (20 sources) Nonsteroidal Anti-inflammatory Drug Start: 02-10-2020 End: 02-10-2020 take 81 mg by mouth once daily Aspirin Active 81 MG PO DAILY February 10, 2020 10:23am Start: 01-02-2011 End: 02-10-2020 take 325 mg by mouth once daily Aspirin Discontinued 325 MG PO DAILY@0800 May 27, 2013 11:00pm February 10, 2020 10:16am clopidogrel 75 mg oral tablet (10 sources) P2Y12 Platelet Inhibitor Start: 06-16-2013 take 75 mg by mouth once daily Clopidogrel Active 75 MG PO DAILY September 11, 2013 12:00am empagliflozin 25 mg oral tablet (8 sources) Sodium-Glucose Cotransporter 2 Inhibitor Start: 02-10-2020 take 12.5 mg by mouth once daily Empagliflozin Active 12.5 MG PO DAILY February 09, 2020 11:00pm fluticasone propionate 0.05 mg/actuat metered dose nasal spray (20 sources) Corticosteroid Start: 02-10-2020 End: 12-23-2020 take 1 spray(s) nasal route once daily Fluticasone Propionate (Flonase Allergy Relief) 50 mcg/actuation spray,suspension Active 1 SPRAY INTRANASAL DAILY December 23, 2020 7:56am administer into each nostril Start: 03-24-2018 End: 10-31-2019 Fluticasone Propionate (Chil dren's Flonase Allergy Rlf) 50 mcg/actuation spray,suspension Discontinued 1 SPRAY INTRANASAL daily March 23, 2018 11:00pm October 31, 2019 12:49pm Start: 08-18-2014 FLONASE 50 MCG /ACT SUSP Take as directed FLUTICASONE PROPIONATE [id number] Fide Luke PA-C folic acid 1 mg oral tablet (18 sources) Start: 10-13-2018 take 1 mg by mouth once daily Folic Acid Active 1 MG PO DAILY October 12, 2018 11:00pm Start: 05-28-2013 End: 10-13-2018 take 0.8 mg by mouth once daily Folic Acid Discontinue d 0.8 MG PO DAILY@0800 May 27, 2013 11:00pm October 13, 2018 7:51am Start: 01-02-2011 take 1 tablet by once daily FOLIC ACID TABS (0.8Mg) One tablet by mouth daily FOLIC ACID TABS [id number] Helena Ingram Handicap Placard (20 sources) Start: 03-12-[address] Active 0 .Route .MEDSUPPLY March 11, 2023 11:00pm Good From 03/12/2023-03/12/2028 Start: 03-12-[address] Active 0 .Route .MEDSUPPLY March 12, 2023 12:00am Good From 03/12/2023-03/12/2028 Start: 05-26-2018 End: 10-31-2019 Handicap Placard Discontinue d May 26, 2018 7:38am October 31, 2019 12:49pm As directed; Good from 05/26/18 - 05/26/23 Start: 05-26-2018 End: 10-31-2019 Handicap Placard Discontinue d May 26, 2018 8:38am October 31, 2019 1:49pm As directed; Good from 05/26/18 - 05/26/23 Start: 05-26-2018 End: 05-26-2018 Handicap Placard Discontinue d May 26, 2018 7:37am May 26, 2018 7:39am As directed Start: 05-26-2018 End: 05-26-2018 Handicap Placard Discontinue d May 26, 2018 8:37am May 26, 2018 8:39am As directed Start: 05-26-2018 End: 05-26-2018 Handicap Placard Discontinue d May 26, 2018 8:35am May 26, 2018 8:37am As directed Start: 05-26-2018 End: 05-26-2018 Handicap Placard Discontinue d May 25, 2018 11:00pm May 26, 2018 7:37am As directed Start: 05-26-2018 End: 05-26-2018 Handicap Placard Discontinue d May 26, 2018 12:00am May 26, 2018 8:37am As directed 3 ml insulin glargine 100 unt/ml pen injector (20 sources) Insulin Analogue Start: 05-03-2022 Insulin Glarg ine Active 30 UNIT SC TWICE A DAY May 03, 2022 2:28pm Start: 07-03-2021 End: 05-03-2022 Insulin Glargine Discontinue d 38 UNIT SC DAILY July 03, 2021 8:51am May 03, 2022 2:28pm Start: 07-03-2021 End: 05-03-2022 Insulin Glargine Discontinue d 38 UNIT SC AT BEDTIME July 03, 2021 8:51am May 03, 2022 2:29pm Start: 10-31-2019 End: 07-03-2021 Insulin Glargine Discontinue d 50 UNIT SC AT BEDTIME October 31, 2019 12:48pm July 03, 2021 8:52am Start: 12-11-2017 End: 07-03-2021 Insulin Glargine Discontinue d 50 UNITS SC DAILY December 10, 2017 11:00pm July 03, 2021 8:52am Start: 12-11-2017 End: 10-31-2019 Insulin Glargine Discontinue d 58 UNITS SC AT BEDTIME December 10, 2017 11:00pm October 31, 2019 12:49pm Start: 01-02-2011 LANTUS 100 UNI T/ML SOLN as directed INSULIN GLARGINE [id number] Rodríguez Srivastava MD 24 hr isosorbide mononitrate 60 mg extended release oral tablet (20 sources) Nitrate Vasodilator Start: 02-10-2020 End: 02-10-2020 take 60 mg by mouth once daily Isosorbide Mononitrate Active 60 MG PO DAILY February 10, 2020 10:22am Start: 05-26-2018 End: 05-26-2018 Isosorbide Mononitrate Disco ntinued 30 MG PO DAILY May 26, 2018 9:07am May 26, 2018 9:27am Patient address: [address] [place] [address] [address] [place] [id number] Start: 05-02-2018 End: 10-31-2019 take 30 mg by mouth once daily Isosorbide Mononitrate Discontinued 30 MG PO DAILY 90 May 26, 2018 9:26am October 31, 2019 12:49pm magnesium (12 sources) Start: 05-28-2013 take 250 mg by mouth once daily Magnesium Active 250 MG PO DAILY May 28, 2013 9:51am Start: 05-28-2013 take 250 mg by mouth once chato y Magnesium Active 250 MG PO DAILY May 27, 2013 11:00pm Start: 05-28-2013 take 250 mg by mouth once chato y Magnesium Active 250 MG PO DAILY May 28, 2013 12:00am Start: 01-02-2011 take 1 tablet by ar th once daily MAGNESIUM 500 MG TABS One half tablet by mouth daily MAGNESIUM [id number] Rodríguez Srivastava MD Start: 01-02-2011 take 1 tablet by ar th once daily MAGNESIUM 500 MG TABS One tablet by mouth daily MAGNESIUM [id number] Helena Ingram metoprolol tartrate 100 mg oral tablet (18 sources) beta-Adrenergic Bill Start: 03-24-2018 take 100 mg by mouth twice daily Metoprolol Tartrate Active 100 MG PO TWICE A DAY March 23, 2018 11:00pm Start: 01-02-2011 End: 03-24-2018 take 100 mg by mouth twice daily Metoprolol Succinate Discontinued 100 MG PO TWICE A DAY May 27, 2013 11:00pm March 24, 2018 3:09pm nitroglycerin 0.4 mg sublingual tablet (18 sources) Nitrate Vasodilator Start: 02-10-2020 Nitroglyce rin Active 0.4 MG SL every 5 to 15 minutes February 09, 2020 11:00pm do not exceed 3 doses per episode Start: 05-28-2013 End: 10-31-2019 Nitroglycerin Discontinued 0 .4 MG SL Q5M May 27, 2013 11:00pm October 31, 2019 12:49pm Start: 01-02-2011 NITROSTAT 0.4 MG SUBL 1 tablet under tongue every 5 min up to 3 X NITROGLYCERIN [id number] Fide Luke PA-C pantoprazole 20 mg delayed release oral tablet (4 sources) Proton Pump Inhibitor Start: 07-18-2022 take 20 mg by mouth once daily Pantoprazole Active 20 MG PO DAILY July 18, 2022 12:00am 12 hr ranolazine 1000 mg extended release oral tablet (20 sources) Anti-anginal Start: 05-03-2022 take 500 mg by mouth twice daily Ranolazine Active 500 MG PO TWICE A DAY May 03, 2022 3:09pm Start: 05-03-2022 End: 05-03-2022 take 1000 mg by mouth twice daily Ranolazine Discontinued 1000 MG PO TWICE A DAY May 02, 2022 11:00pm May 03, 2022 3:09pm Start: 06-16-2013 End: 05-03-2022 take 1 tablet by mouth twice daily Ranolazine Discontinued 1000 TABLET PO TWICE A DAY September 11, 2013 12:00am May 03, 2022 2:27pm Start: 06-16-2013 take 2 tablets by mo uth once daily RANEXA 500 MG [id number] Two tablets by mouth daily RANOLAZINE [id number] Rodríguez Srivastava MD Start: 06-16-2013 take 1 tablet by ar twice daily RANEXA 1000 MG [id number] One tablet by mouth twice daily RANOLAZINE [id number] Rodríguez Srivastava MD rosuvastatin calcium 40 mg oral tablet (18 sources) HMG-CoA Reductase Inhibitor Start: 12-23-2020 take 40 mg by mouth once daily Rosuvastatin Active 40 MG PO DAILY December 22, 2020 11:00pm Start: 01-02-2011 End: 12-23-2020 take 20 mg by mouth at bedtime Rosuvastatin Discontinu ed 20 MG PO AT BEDTIME May 27, 2013 11:00pm December 23, 2020 7:54am 1 mg dose 1.5 ml semaglutide 1.34 mg/ml pen injector (8 sources) Start: 12-23-2020 Semaglutide (O zempic) 1 mg/dose (2 mg/1.5 mL) pen injector Active 1 MG SC EVERY WEEK December 22, 2020 11:00pm Completed/Discontinued Medications Medication Drug Class(es) Dates Sig (Normalized) Sig (Original) acetaminophen 325 mg / HYDROcodone bitartrate 5 mg oral tablet (16 sources) Opioid Agonist Start: 07-08-2019 End: 07-22-2019 take 1 tablet by mouth every six hours as needed Hydrocodone-Acetami nophen Discontinued 1 TABLET PO EVERY 6 HOURS NEEDED 05 07July 08, 2019 July 22, 2019 12:09am Start: 12-18-2017 End: 01-03-2018 take 1 tablet by mouth every six hours as needed Hydrocodone-Acetaminophen Discontinued 1 - 2 TABLET PO EVERY 6 HOURS NEEDED 22 10December 17, 2017 11:00pm January 03, 2018 7:17am cyclobenzaprine hydrochloride 10 mg oral tablet (8 sources) Muscle Relaxant Start: 07-08-2019 End: 10-31-2019 take 10 mg by mouth three times daily Cyclobenzaprine Discontinued 10 MG PO THREE TIMES A DAY July 08, 2019 12:00am October 31, 2019 12:48pm ezetimibe 10 mg oral tablet (20 sources) Dietary Cholesterol Absorption Inhibitor Start: 01-02-2011 End: 05-04-2022 take 10 mg by mouth once daily Ezetimibe Discontinued 10 MG PO DAILY May 09, 2018 11:51am May 04, 2022 12:24pm famotidine 20 mg oral tablet (10 sources) Histamine-2 Receptor Antagonist Start: 01-02-2011 End: 07-18-2022 take 20 mg by mouth once daily Famotidine Discontinued 20 MG PO DAILY May 27, 2013 11:00pm July 18, 2022 10:32am fosinopril sodium 10 mg oral tablet (12 sources) Angiotensin Converting Enzyme Inhibitor Start: 01-02-2011 End: 02-08-2022 take 10 mg by mouth once daily Fosinopril Discontinued 10 MG PO DAILY May 27, 2013 11:00pm February 08, 2022 1:52pm On Hold: Hypotension, dizziness INSULIN LISPRO (HUMAN) SOLN (2 sources) Insulin Analogue Start: 01-02-2011 HUMALOG SOLN INSULIN units/ml, Take as directed INSULIN LISPRO (HUMAN) SOLN [id number] Helena Ingram 3 ml insulin aspart, human 100 unt/ml pen injector (10 sources) Insulin Analogue Start: 12-11-2017 End: 12-23-2020 Insulin Aspart U-100 Discontinued 18 UNITS SC 3 TIMES DAILY WITH MEALS December 10, 2017 11:00pm December 23, 2020 7:55am Start: 09-12-2015 NOVOLOG 100 UN IT/ML SOLN as directed INSULIN ASPART [id number] Rodríguez Srivastava MD metFORMIN hydrochloride 850 mg oral tablet (16 sources) Biguanide Start: 05-26-2020 End: 05-04-2022 take 425 mg by mouth twice daily Metformin Discontinued 425 MG PO TWICE A DAY May 25, 2020 11:00pm May 04, 2022 12:25pm Start: 10-13-2018 End: 05-26-2020 take 500 mg by mouth twice daily Metformin Discontinued 500 MG PO TWICE A DAY October 12, 2018 11:00pm May 26, 2020 9:07am naproxen 500 mg oral tablet (8 sources) Nonsteroidal Anti-inflammatory Drug Start: 07-08-2019 End: 10-31-2019 take 500 mg by mouth twice daily Naproxen Discontinued 500 MG PO TWICE A DAY July 08, 2019 12:00am October 31, 2019 12:49pm insulin human, isophane 70 unt/ml / regular insulin, human 30 unt/ml injectable suspension (4 sources) Insulin Start: 10-21-2012 End: 03-19-2016 NOVOLIN 70/30 (70-30) 100 UNIT/ML SUSP as directed INSULIN ISOPHANE & REGULAR [id number] Bobby Potter MD polymyxin b 20045 unt/ml / trimethoprim 1 mg/ml ophthalmic solution (20 sources) Dihydrofolate Reductase Inhibitor Antibacterial, Polymyxin-class Antibacterial Start: 10-31-2019 End: 11-07-2019 Polymyxin B Sulf-Trimethoprim (Polytrim) 10,000 unit- 1 mg/mL drops Discontinued 1 DRP OPHTHALMIC Q3H 10 7 October 31, 2019 12:52pm November 06, 2019 11:02pm while awake; do not exceed 6 doses in 24 hours predniSONE 20 mg oral tablet (8 sources) Start: 07-08-2019 End: 10-31-2019 take 60 mg by mouth once daily at mealtime Prednisone Discontinued 60 MG PO DAILY July 08, 2019 12:00am October 31, 2019 12:49pm With food regular insulin, human 100 unt/ml injectable solution (2 sources) Insulin Start: 09-12-2015 NOVOLIN R 100 UNIT/ML SOLN as directed INSULIN REGULAR HUMAN [id number] Rodríguez Srivastava MD Problems Active Problems Problem Classification Problem Date Documented Date Episodic/Chronic Cardiac and circulatory congenital anomalies (2 sources) Left atrial abnormality; Translations: [Cardiomegaly] Onset: 05-15-2013 05-15-2013 Chronic Cardiac dysrhythmias (10 sources) Ventricular premature beats; Translations: [Ventricular premature depolarization] Onset: 01-02-2011 01-02-2011 Chronic Complication of device; implant or graft (11 sources) Arteriosclerosis of coronary artery bypass graft; Translations: [Atherosclerosis of coronary artery bypass graft(s) without angina pectoris] Onset: 01-02-2011 01-02-2011 Chronic Coronary atherosclerosis and other heart disease (20 sources) Coronary arteriosclerosis; Translations: [Coronary atherosclerosis] Onset: 01-02-2011 01-02-2011 Chronic Coronary atherosclerosis and other heart disease (8 sources) Presence of aortocoronary bypass graft; Translations: [History of myocardial infarction] Onset: 01-04-1996 01-02-2011 Episodic Diabetes mellitus without complication (11 sources) Type 1 diabetes mellitus without complications; Translations: [Diabetes mellitus] Onset: 01-02-2011 01-02-2011 Chronic Disorders of lipid metabolism (19 sources) Hyperlipidemia; Translations: [Pure hypercholesterolemia] Onset: 01-02-2011 01-02-2011 Chronic Essential hypertension (18 sources) Hypertensive disorder; Translations: [Essential hypertension] Onset: 01-02-2011 01-02-2011 Chronic Heart valve disorders (1 source) Nonrheumatic mitral (valve) insufficiency; Translations: [Nonrheumatic mitral (valve) insufficiency] Onset: 01-15-2024 Chronic Nausea and vomiting (6 sources) Nausea and vomiting; Translations: [Nausea with vomiting, unspecified] Episodic Occlusion or stenosis of precerebral arteries (2 sources) Occlusion and stenosis of left carotid artery; Translations: [Occlusion and stenosis of left carotid artery] Onset: 01-06-2025 Chronic Other connective tissue disease (6 sources) Biceps tendinitis; Translations: [Bicipital tendinitis, right shoulder] 02-18-2022 Episodic Barbra-; endo-; and myocarditis; cardiomyopathy (4 sources) Heart valve disorder; Translations: [Endocarditis, valve unspecified] Onset: 05-15-2013 Resolved: 12-14-2016 05-15-2013 Chronic Spondylosis; intervertebral disc disorders; other back problems (8 sources) Sciatica; Translations: [Sciatica, unspecified side] 07-09-2019 Episodic Unclassified (2 sources) Body mass index (BMI) 30.0-30.9, adult; Translations: [Body mass index (BMI) 30.0-30.9, adult] Onset: 02-17-2014 09-12-2015 Chronic Unclassified (12 sources) Cardiovascular stress test abnormal; Translations: [Electrocardiogram abnormal] Onset: 05-15-2013 Resolved: 12-14-2016 05-15-2013 Episodic Unclassified (2 sources) 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; Translations: [Presence of aortocoronary bypass graft] Onset: 01-02-2011 12-14-2016 Unclassified (2 sources) Long-term drug therapy; Translations: [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 rat 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 therapy] Onset: 01-02-2011 01-02-2011 Past or Other Problems Problem Classification Problem Date Documented Da te Episodic/Chronic Other circulatory disease (2 sources) Bruit; Translations: [Other specified symptoms and signs involving the circulatory and respiratory systems] Onset: 02-17-2014 02-17-2014 Episodic Other lower respiratory disease (2 sources) Dyspnea; Translations: [Shortness of breath] Onset: 01-02-2011 01-02-2011 Episodic Unclassified (4 sources) Body mass index (BMI) 29.0-29.9, adult; Translations: [Family history of ischemic heart disease and other diseases of the circulatory system] Onset: 02-17-2014 02-17-2014 Episodic Results Test Name Value Interpretation Reference Range Facility Cardiology Visit Reporton Cardiology Visit Report [facility] [address] [place] [address] OFFICE VISIT Date of Service: 01/06/25 MR#: [id number] Acct: [id number] Name: GUSTAVO LANGE Rep #: [id number] : 1955 Provider: NICHELLE church Age/Sex: 69/M Location: [facility] [place] Status: Signed HPI HPI History of Present Illness Details: This gentleman has history of coronary artery disease status post CABG in 1996. His last coronary angiography revealed chronic total occlusion of his left main coronary artery and RCA. All vein grafts were noted to be occluded. Only SANDOVAL to the LAD noted to be patent. Diffuse disease of the [place] LAD, filling retrogradely either ramus intermedius or high diagonal branch. Also filling right PDA via collaterals. He denies chest, arm, jaw, or neck discomfort. He denies palpitations. He denies bilateral lower extremity edema. He denies claudication. He denies shortness of breath with activity, shortness of breath at rest, orthopnea, or PND. He denies chronic cough. He denies significant, sudden weight gain. He denies lightheadedness, dizziness, near-syncope, or syncope. He denies blood in urine, blood in stool, or epistaxis. He denies fever with chills. He denies myalgia. He denies fatigue. His exercise level has remained stable. Intake Vital Signs 01/15/24 14:27 01/06/25 10:05 Height 5 ft 8 in 5 ft 8 in Weight: 158 lb 162 lb BMI 24.0 24.6 BP 123/77 H 109/63 Blood Pressure Location Lt brachial Lt brachial Position Sitting Sitting Respiration 16 16 Pulse 71 74 Pulse Source Monitor NIBP Intake Visit Reasons: 7 M FU/JHR PER PT RQ Power Switchboard Operator Required: No Is patient in pain?: No Allergies No Known Allergies Allergy (Verified 01/06/25 10:10) Medications ???Medication ???Instructions ???Recorded ???Confirmed ???Type allopurinol 100 mg tablet 100 mg PO DAILYCM 05/28/13 5 History magnesium 250 mg tablet 250 mg PO DAILY 05/28/13 01/06/25 History clopidogrel 75 mg tablet 75 mg PO DAILY 09/11/13 01/06/25 H istory metoprolol tartrate 100 mg tablet 100 mg PO BID 03/24/18 01/06/25 H istory aspirin 81 mg chewable tablet 81 mg PO DAILY #1 TAB 02/10/2011/27 Rx isosorbide mononitrate 60 mg 60 mg PO DAILY #30 tabs 02/10/20 0 01/06/25 Rx tablet,extended release 24 hr nitroglycerin 0.4 mg sublingual 0.4 mg sublingual Q5-15M PRN Pain 02/10/20 01/06/25 History tablet fluticasone propionate 50 1 spray intranasal DAILY PRN 12/2301/06/25 History mcg/actuation nasal Allergic Symptoms spray,suspension (Flonase Allergy Relief) rosuvastatin 40 mg tablet 40 mg PO DAILY 12/23/20 01/06/25 H istory semaglutide 1 mg/dose (2 mg/1.5 1 mg subcut QWEEK 12/23/20 5 History mL) subcutaneous pen injector (Ozempic) pantoprazole 20 mg tablet,delayed 20 mg PO DAILY 07/18/22 01/06/25 History release Handicap Placard #1 ea 03/12/23 01/15/24 Rx empagliflozin 25 mg tablet 25 mg PO DAILY 11/20/23 01/06/25 H istory ranolazine 500 mg tablet,extended 500 mg PO BID 01/15/24 01/06/25 H istory release,12 hr alirocumab 150 mg/mL subcutaneous 150 mg subcut Q14D #2 mL 01/06/25 01/06/25 Rx pen injector (Praluent Pen) alirocumab 75 mg/mL subcutaneous 75 mg subcut Q14D #2 mL 01/06/25 0 01/06/25 Rx pen injector (Praluent Pen) insulin aspart U-100 100 unit/mL See Rx Instructions subcut .COMPLE X 01/06/25 01/06/25 History (3 mL) subcutaneous pen (Novolog FlexPen U-100 Insulin aspart) insulin glargine 100 unit/mL (3 58 unit subcut QAM 01/06/25 History mL) subcutaneous pen Ejection fraction %: 45 Have you fallen in the past year?: No PFSH Medical History Nausea vomiting CAD (coronary artery disease) Angina pectoris Prostate cancer Heart disease Pure hypercholesterolemia Essential (primary) hypertension Atherosclerosis of coronary artery bypass graft without angina pectoris History of myocardial infarction Ischemic cardiomyopathy Obstructive sleep apnea Kidney stones PVCs (premature ventricular contractions) Atherosclerosis of [place] coronary artery of [place] heart without angina pectoris Diabetes Surgical History History of left heart catheterization (LHC) ( 02/08/20) History of coronary artery bypass surgery ( 01/20/96) History of prostatectomy ( 2006) bone spur removal R middle finger DIP jt H/O hernia repair Family History Father CAD (coronary artery disease) <55 Mother Diabetes Brother CAD (coronary artery disease) Other CVA (cerebral vascular accident) Social History Smoking Status: Never smoker alcohol inta (more content not included)... Normal [facility] Cardiology Visit Reporton Cardiology Visit Report [facility] [address] [place] [address] OFFICE VISIT Date of Service: 01/15/24 MR#: [id number] Acct: [id number] Name: GUSTAVO LANGE Rep #: [id number] : 1955 Provider: Dr. Ronald Roberts MD Age/Sex: 68/M [place] [facility] Status: Signed HPI HPI History of Present Illness Details: This gentleman has history of coronary artery disease status post CABG in 1996. His last coronary angiography revealed chronic total occlusion of his left main coronary artery and RCA. All vein grafts were noted to be occluded. Only SANDOVAL to the LAD noted to be patent. Diffuse disease of the [place] LAD, filling retrogradely either ramus intermedius or high diagonal branch. Also filling right PDA via collaterals. Patient denies any complaints today. He has angina pectoris with strenuous exertion only. Denies any palpitations. No orthopnea. No PND. No ankle edema. Intake Vital Signs 07/23/23 08:32 01/15/24 14:27 Height 5 ft 8 in 5 ft 8 in Weight: 159 lb 158 lb BMI 24.1 24.0 BP 99/64 123/77 H Blood Pressure Location Lt brachial Lt brachial Position Sitting Sitting Respiration 16 16 Pulse 73 71 Pulse Source Monitor Monitor Intake Visit Reasons: 6 M FU Power Switchboard Operator Required: No Accompanied by: Self Is patient in pain?: No Allergies No Known Allergies Allergy (Verified 01/15/24 14:27) Medications ???Medication ???Instructions ???Recorded ???Confirmed ???Type allopurinol 100 mg tablet 100 mg PO DAILYCM 05/28/13 01/15/24 History ascorbic acid (vitamin C) 500 mg 500 mg PO DAILY@0800 05/28/13 01/15/24 History tablet magnesium 250 mg tablet 250 mg PO DAILY 05/28/13 01/15/24 History clopidogrel 75 mg tablet 75 mg PO DAILY 09/11/13 01/15/24 History metoprolol tartrate 100 mg tablet 100 mg PO BID 03/24/18 01/15/24 History folic acid 1 mg tablet 1 mg PO DAILY 10/13/18 01/15/24 History aspirin 81 mg chewable tablet 81 mg PO DAILY #1 TAB 02/10/20 01/15/24 Rx isosorbide mononitrate 60 mg 60 mg PO DAILY #30 tabs 02/10/20 01/15/24 Rx tablet,extended release 24 hr nitroglycerin 0.4 mg sublingual 0.4 mg sublingual Q5-15M PRN Pain 02/10/20 01/15/24 History tablet fluticasone propionate 50 1 spray intranasal DAILY PRN 12/23/20 01/15/24 History mcg/actuation nasal Allergic Symptoms spray,suspension (Flonase Allergy Relief) rosuvastatin 40 mg tablet 40 mg PO DAILY 12/23/20 01/15/24 History semaglutide 1 mg/dose (2 mg/1.5 1 mg subcut QWEEK 12/23/20 01/15/24 History mL) subcutaneous pen injector (Ozempic) pantoprazole 20 mg tablet,delayed 20 mg PO DAILY 07/18/22 01/15/24 History release Handicap Placard #1 ea 03/12/23 01/15/24 Rx empagliflozin 25 mg tablet 25 mg PO DAILY 11/20/23 01/15/24 History insulin glargine 100 unit/mL (3 32 unit subcut BID 11/20/23 01/15/24 History mL) subcutaneous pen ranolazine 500 mg tablet,extended 500 mg PO BID 01/15/24 01/15/24 History release,12 hr Ejection fraction %: 45 [facility] Medical History (Updated 01/15/24 @ 14:[address] Ronald Roberts MD) Nausea vomiting CAD (coronary artery disease) Angina pectoris Prostate cancer Heart disease Pure hypercholesterolemia Essential (primary) hypertension Atherosclerosis of coronary artery bypass graft without angina pectoris History of myocardial infarction Ischemic cardiomyopathy Obstructive sleep apnea Kidney stones PVCs (premature ventricular contractions) Atherosclerosis of [place] coronary artery of [place] heart without angina pectoris Diabetes Surgical History History of left heart catheterization (LHC) ( 02/08/20) History of coronary artery bypass surgery ( 01/20/96) History of prostatectomy ( 2006) bone spur removal R middle finger DIP jt H/O hernia repair Family History Father CAD (coronary artery disease) <55 Mother Diabetes Brother CAD (coronary artery disease) Other CVA (cerebral vascular accident) Social History Smoking Status: Never smoker alcohol intake: current alcohol intake frequency: a few times a month substance use type: does not use caffeine: Yes Type: coffee Number of servings: 1 ROS Const Const: Positive for daytime sleepiness (occasionally); Negative for fatigue, weakness, headache(s), frequent falls, difficulty sleeping or excessive sweating Eyes Eyes: Positive for change in vision; Negative for loss of peripheral vision, transient loss of vision, blurry vision, double vision or tunnel vision ENT ENT: Negative for headache(s), dizziness, Nosebleed/epistaxis or balance problems Cardio Chest Pain: Yes Frequency: other Character: other (pressure if working too hard) (more content not included)... Normal [facility] Basophil percentageOrdered B y: Johann Bertrand on 08-21-2023 Bilirubin [Mass/Vol] 0.60 mg/dL 0.20-1.00 [facility] Comment on above: For patients on eltr ombopag therapy, use of [place] TBIL is not recommended. Chloride [Moles/Vol] 105 mmol/L 98-107 [facility] Glucose [Mass/Vol] 178 mg/dL 74-106 [facility] Comment on above: Fasting Glucose resu lt greater than or equal to 126 mg/dL suggests DIABETES MELLITUS per A.D.A. criteria. Hemoglobin (Bld) [Mass/Vol] 16.0 g/dL 13.0-16.5 [facility] Potassium [Moles/Vol] 4.0 mmol/L 3.5-5.1 [facility] Protein [Mass/Vol] 7.3 g/dL 6.4-8.2 [facility] Sodium [Moles/Vol] 140 mmol/L 136-145 [facility] Testosterone [Mass/Vol] 427.75 ng/dL [facility] Comment on above: CENTRAL 90% REFERENC E RANGES MALE AGE <50 197.44 - 669.58 ng/dL MALE AGE > or = 50 187.72 - 684.19 ng/dL FEMALE AGE <50 8.38 - 35.01 ng/dL FEMALE AGE > or = 50 <7.00 - 35.92 ng/dL Effective as of 02/28/21 WBC (Bld) [#/Vol] 8.4 10*3/uL 4.4-11.0 [facility] Determination of erythrocyte mean corpuscular volume (MCV)Ordered By: Johann Bertrand on 08-21-2023 MCV (RBC) [Entitic vol] 99.2 fL 80-94 [facility] Erythrocyte distribution wid th ratioOrdered By: Johann Bertrand on 08-21-2023 Erythrocyte distribution width (RBC) [Ratio] 13.0 % 11.6-14.6 [facility] Erythrocyte distribution wid th standard deviationOrdered By: Johann Bertrand on 08-21-2023 Erythrocyte distribution width (RBC) [Entitic vol] 47.5 fL 35.1-43.9 [facility] Hematocrit Auto (Bld) [Volum e fraction]Ordered By: Johann Bertrand on 08-21-2023 Hematocrit (Bld) [Volume fraction] 47.9 % 40-54 [facility] Laboratory - Chemistry and C hemistry - challengeOrdered By: Johann Bertrand on 08-21-2023 Albumin/Globulin [Mass ratio] 1.0 {ratio} 0.9-2.4 [facility] ALP [Catalytic activity/Vol] 74 U/L 45-117 [facility] ALT [Catalytic activity/Vol] 42 U/L 16-61 [facility] CO2 [Moles/Vol] 30.0 mmol/L 21.0-32.0 [facility] Globulin (S) [Mass/Vol] 3.6 g/dL 2.2-4.2 [facility] Urea nitrogen/Creatinine [Mass ratio] 16.0 mg/mg 10-20 [facility] Laboratory - Hematology and Cell countsOrdered By: Johann Bertrand on 08-21-2023 MCH (RBC) [Entitic mass] 33.1 pg 27.0-32.0 [facility] MCHC (RBC) [Mass/Vol] 33.4 g/dL 32-36 [facility] Platelets (Bld) [#/Vol] 176 10*3/uL 150-450 [facility] No Panel InformationOrdered By: Johann Bertrand on 08-21-2023 Estimated GFR (MDRD) Amer 70 mL/min >60 [facility] Comment on above: GFR Calc Estimated GFR (MDRD) Non-Af Amer 58 mL/min >60 [facility] Comment on above: Non- GFR Calc Platelet mean volume Blaise-Ec ker (Bld) [Entitic vol]Ordered By: Johann Bertrand on 08-21-2023 Platelet mean volume (Bld) [Entitic vol] 11.4 fL 6.2-12.0 [facility] RBC Auto (Bld) [#/Vol]Ordere d By: Johann Bertrand on 08-21-2023 RBC (Bld) [#/Vol] 4.83 10*6/uL 4.6-6.2 [facility] Screening prostate specific antigen (PSA) measurementOrdered By: Johann Bertrand on 08-21-2023 Prostate specific Ag IA [Mass/Vol] < 0.01 ng/mL 0.00-4.00 [facility] Comment on above: This test was perfor med using the TPSA assay method [facility]. Values obtained with differentassay methods cannot be used interchangably.When changing PSA assays in the course of monitoring apatient, additional sequential testing should be carriedout to confirm baseline values. Serum or plasma calcium marti urement (mass/volume)Ordered By: Johann Bertrand on 08-21-2023 Calcium [Mass/Vol] 9.2 mg/dL 8.5-10.1 [facility] Serum or plasma creatinine m easurement (mass/volume)Ordered By: Johann Bertrand on 08-21-2023 Creatinine [Mass/Vol] 1.31 mg/dL 0.70-1.30 [facility] Comment on above: The validity of the calculated GFR & GFRAA in patients over 70 years has not been determined. Clinical correlation is essential. Serum or plasma thyroid stim ulating hormone (TSH) measurement (units/volume)Ordered By: Johann Bertrand on 08-21-2023 TSH Qn 1.45 uIU/mL 0.358-3.74 [facility] Serum or plasma urea nitroge n measurement (mass/volume)Ordered By: Johann Bertrand on 08-21-2023 Urea nitrogen [Mass/Vol] 21 mg/dL 7-18 [facility] Thin prep Papanicolaou smear with manual screeningOrdered By: Johann Bertrand on 08-21-2023 Thin prep Papanicolaou smear with manual screening 3.7 g/dL 3.2-5.0 [facility] Thin prep Papanicolaou smear with manual screening 28 U/L 15-37 [facility] Thin prep Papanicolaou smear with manual screening 5 5-15 [facility] Culture, urineOrdered By: Beulah Orozco on 02-11-2023 Bacteria identified Cx Nom (U) Presumptive E. coli [facility] Absolute lymphocyte counton 12-25-2021 Lymphocytes Auto (Unsp spec) [#/Vol] 3.21 10*3/uL 0.83-4.51 [facility] Work Phone: Basophil percentageon 2021 Basophils/100 WBC (Bld) 0.2 % 0-1 [facility] Work Phone: Chloride [Moles/Vol] 106 mmol/L 98-107 [facility] Work Phone: Eosinophils/100 WBC (Bld) 3.1 % 0-5 [facility] Work Phone: Glucose [Mass/Vol] 175 mg/dL 74-106 [facility] Work Phone: Comment on above: Fasting Glucose resu lt greater than or equal to 126 mg/dL suggests DIABETES MELLITUS per A.D.A. criteria. Neutrophils (Bld) [#/Vol] 4.1 10*3/uL 2.0-7.7 [facility] Work Phone: Neutrophils/100 WBC (Bld) 48.8 % 47-70 [facility] Work Phone: Potassium [Moles/Vol] 4.1 mmol/L 3.5-5.1 [facility] Work Phone: Sodium [Moles/Vol] 142 mmol/L 136-145 [facility] Work Phone: WBC (Bld) [#/Vol] 8.5 10*3/uL 4.4-11.0 [facility] Work Phone: Blood erythrocytes count (nu mber/volume)on 12-25-2021 RBC (Bld) [#/Vol] 4.60 10*6/uL 4.6-6.2 [facility] Work Phone: Blood hemoglobin measurement (mass/volume)on 12-25-2021 Hemoglobin (Bld) [Mass/Vol] 15.2 g/dL 13.0-16.5 [facility] Work Phone: Blood lymphocytes/100 leukoc yteson 12-25-2021 Lymphocytes/100 WBC (Bld) 37.9 % 19-41 [facility] Work Phone: Blood monocytes/100 leukocyt eson 12-25-2021 Monocytes/100 WBC (Bld) 9.8 % 0-10 [facility] Work Phone: Blood platelet mean volumeon 12-25-2021 Platelet mean volume (Bld) [Entitic vol] 10.2 fL 6.2-12.0 [facility] Work Phone: Determination of erythrocyte mean corpuscular volume (MCV)on 12-25-2021 MCV (RBC) [Entitic vol] 99.3 fL 80-94 [facility] Work Phone: Hematocrit Auto (Bld) [Volum e fraction]on 12-25-2021 Hematocrit (Bld) [Volume fraction] 45.7 % 40-54 [facility] Work Phone: Laboratory - Chemistry and C hemistry - challengeon 12-25-2021 CO2 [Moles/Vol] 31.0 mmol/L 21.0-32.0 [facility] Work Phone: [phone] Urea nitrogen/Creatinine [Mass ratio] 13.9 mg/mg 10-20 [facility] Work Phone: [phone] Laboratory - Hematology and Cell countson 12-25-2021 Erythrocyte distribution width (RBC) [Entitic vol] 47.1 fL 35.1-43.9 [facility] Work Phone: [phone] Erythrocyte distribution width (RBC) [Ratio] 13.0 % 11.6-14.6 [facility] Work Phone: [phone] Immature granulocytes/100 WBC (Bld) 0.200 % 0.0-0.9 [facility] Work Phone: [phone] Comment on above: IG% - Immature Granu locytes (promyelocytes, myelocytes and metamyelocytes) > 1% indicates that a LEFT SHIFT is Present. MCH (RBC) [Entitic mass] 33.0 pg 27.0-32.0 [facility] Work Phone: [phone] Nucleated RBC/100 WBC (Bld) [Ratio] 0 % 0-5 [facility] Work Phone: [phone] MCHC Auto (RBC) [Mass/Vol]on 12-25-2021 MCHC (RBC) [Mass/Vol] 33.3 g/dL 32-36 [facility] Work Phone: [phone] Panel Informationon 12-25 Estimated GFR (MDRD) Amer 76 mL/min >60 [facility] Work Phone: [phone] Comment on above: GFR Calc Estimated GFR (MDRD) Non-Af Amer 63 mL/min >60 [facility] Work Phone: [phone] Comment on above: Non- GFR Calc Platelets bldon 12-25-2021 Platelets (Bld) [#/Vol] 195 10*3/uL 150-450 [facility] Work Phone: [phone] Serum or plasma calcium marti urement (mass/volume)on 12-25-2021 Calcium [Mass/Vol] 8.9 mg/dL 8.5-10.1 [facility] Work Phone: Serum or plasma creatinine m easurement (mass/volume)on 12-25-2021 Creatinine [Mass/Vol] 1.22 mg/dL 0.70-1.30 [facility] Work Phone: Comment on above: The validity of the calculated GFR & GFRAA in patients over 70 years has not been determined. Clinical correlation is essential. Serum or plasma urea nitroge n measurement (mass/volume)on 12-25-2021 Urea nitrogen [Mass/Vol] 17 mg/dL 7-18 [facility] Work Phone: Thin prep Papanicolaou smear with manual screeningon 12-25-2021 Thin prep Papanicolaou smear with manual screening 5 5-15 [facility] Work Phone: Activated PTTon 02-08-2020 aPTT Coag (Bld) [Time] 45.3 s High 23.0-32.4 [facility] Comment on above: Result Comment: Unfr actionated Heparin Therapeutic Ranges: Standard Heparin Nomogram: 53 to 78 seconds (anti-Xa level of 0.3 to 0.7 U/mL) Low Dose/ACS Nomogram: 49 to 67 seconds (anti-Xa level of 0.2 to 0.5 U/mL) Stroke Treatment Nomogram: 49 to 67 seconds (anti-Xa level of 0.2 to 0.5 U/mL) Note: The APTT therapeutic range has been determined for the current lot of laboratory APTT reagent in use throughout the [facility]. Performed By: #### H A1C #### [facility] [address], [place] [address] Basic Metabolic Panelon Anion gap [Moles/Vol] 11 mmol/L Normal 9-18 [facility] Comment on above: Performed By: #### H A1C #### [facility] [address], [place] [address] Calcium [Mass/Vol] 9.3 mg/dL Normal 8.5-10.2 [facility] Comment on above: Performed By: #### H A1C #### [facility] [address], [place] [address] Chloride [Moles/Vol] 105 mmol/L Normal 97-105 [facility] Comment on above: Performed By: #### H A1C #### [facility] [address], [place] [address] CO2 Blood 22 mmol/L Normal 22-30 [facility] Comment on above: Performed By: #### H A1C #### [facility] [address], [place] [address] Creatinine [Mass/Vol] 1.39 mg/dL High 0.73-1.22 [facility] Comment on above: Performed By: #### H A1C #### [facility] [address], [place] [address] Glucose [Mass/Vol] 198 mg/dL High 74-99 [facility] Comment on above: Result Comment: The [place] Diabetes Association (ADA) provides guidance for cutoff values for fasting glucose and random glucose. The ADA defines fasting as no caloric intake for at least 8 hours.Fasting plasma glucose results between 100 to 125 mg/dL indicate increased risk for diabetes (prediabetes). Fasting plasma glucose results greater than or equal to 126 mg/dL meet the criteria for diagnosis of diabetes. In the absence of unequivocal hyperglycemia, results should be confirmed by repeat testing. In a patient with classic symptoms of hyperglycemia or hyperglycemic crisis, random plasma glucose results greater than or equal to 200 mg/dL meet the criteria for diagnosis of diabetes. Reference: Standards of Medical Care in Diabetes 2016; [place] Diabetes Association. Diabetes Care. 2016;39(Suppl 1). Performed By: #### H A1C #### [facility] [address], [place] [address] Potassium [Moles/Vol] 4.3 mmol/L Normal 3.7-5.1 [facility] Comment on above: Performed By: #### H A1C #### [facility] [address], [place] [address] Sodium [Moles/Vol] 138 mmol/L Normal 136-144 [facility] Comment on above: Performed By: #### H A1C #### [facility] [address], [place] [address] Urea nitrogen [Mass/Vol] 20 mg/dL Normal 9-24 [facility] Comment on above: Performed By: #### H A1C #### [facility] [address], [place] [address] CONSULT PROGon 02-08-2020 CONSULT PROG HNO ID: [id number] Author: Sheba (Technical Account Manager Julito) JULITO Murphy Service: Cardiovascular Medicine Author Type: Nurse Practitioner Type: Consult Progress Note Filed: 02/08/2020 11:49 AM Note Text: CARDIOLOGY CONSULT PROGRESS NOTE CARDIOLOGY ATTENDING: Dr. Kelly/outpatient air brake mechanic is Dr. Srivastava Date and Reason for initial consult: Chest pain INTERVAL HISTORY: Patient presented with recurrent chest pain from [facility]. He had recurrent chest pain symptoms that occurred at rest with relief of one sublingual nitro tablet, he took a total of 5 nitro in a 6-hour period. EKG with inferior Q waves which are old, new T wave inversions were noted. Treated for unstable angina. Status post cardiac catheterization today with findings of occluded SVG grafts, SANDOVAL to the LAD is patent, [place] D1 and D2 are before SANDOVAL anastomosis, found to have severe proximal D2 lesion likely cause for angina. EF previously 35% await echo. Recommended for medical treatment, if he fails medical treatment notes indicate difficult complex PTCA option via the SANDOVAL, or consideration for redo CABG to diagonal 1, diagonal 2, and RCA. Currently patient is pain-free, Imdur, and ranolazine have been increased, currently on aspirin which should be lifelong, Plavix for at least 12 months. On statin, and Zetia. Reviewed the above with patient and his , probable discharge this afternoon, needs close follow-up with Dr. Srivastava. PERTINENT ROS: Denies chest pain, SOB, palpitations MEDICATIONS: Current Facility-Administered Medications Medication Dose Route Frequency - ranolazine ER 1,000 mg tab(s) (RANEXA) 1,000 mg ORAL BID - metoprolol tartrate (short acting) 100 mg tab(s) (LOPRESSOR) 100 mg ORAL BID - folic acid 1 mg tab(s) 1 mg ORAL DAILY - pantoprazole DR 20 mg tab(s) (PROTONIX) 20 mg ORAL DAILY (6 AM) - allopurinol 100 mg tab(s) (ZYLOPRIM) 100 mg ORAL DAILY - ezetimibe 10 mg tab(s) (ZETIA) 10 mg ORAL DAILY - clopidogrel 75 mg tab(s) (PLAVIX) 75 mg ORAL DAILY - ascorbic acid (vitamin C) 500 mg tab(s) (VITAMIN C) 500 mg ORAL DAILY - insulin glargine 50 Units pen (long acting) (LANTUS SOLOSTAR, BASAGLAR KWIKPEN) 50 Units SUBCUTANEOUS BID 8A/BEDTIME - insulin regular human 18 Units injection (short acting) (NovoLIN R,HumuLIN R) 18 Units SUBCUTANEOUS w MEALS - empagliflozin 12.5 mg tab(s) (JARDIANCE) 12.5 mg ORAL DAILY - nitroglycerin sublingual 0.4 mg tab(s) (NITROQUICK) 0.4 mg SUBLINGUAL PRN - dextrose 40 % 15 g 15 g ORAL PRN Or - glucagon 1 mg injection (GLUCAGEN) 1 mg INTRAMUSCULAR PRN Or - dextrose 50% in water 25 mL syringe 12.5 g INTRAVENOUS PRN - ondansetron 4 mg tab(s) (ZOFRAN) 4 mg ORAL q 6 H PRN Or - ondansetron (PF) 4 mg injection (ZOFRAN) 4 mg INTRAVENOUS q 6 H PRN - acetaminophen 650 mg tab(s) (TYLENOL) 650 mg ORAL q 6 H PRN - insulin lispro pen (rapid acting) (HumaLOG KWIKPEN) SUBCUTANEOUS w MEALS - lisinopril 10 mg tab(s) (ZESTRIL, PRINIVIL) 10 mg ORAL DAILY - atorvastatin 40 mg tab(s) (LIPITOR) 40 mg ORAL AT BEDTIME - aspirin 81 mg tab(s) 81 mg ORAL DAILY - isosorbide mononitrate ER 60 mg tab(s) (IMDUR) 60 mg ORAL DAILY - NaCl 0.9% iv infusion 100 mL/hr INTRAVENOUS CONTINUOUS PHYSICAL EXAM: Vital Signs 02/08/20 0945 02/08/20 1000 02/08/20 1015 02/08/20 1030 BP: 110/68 119/58 116/61 119/67 Pulse: (!) 57 (!) 57 (!) 52 (!) 52 Resp: Temp: TempSrc: SpO2: Weight: Height: Temp (24hrs), Av.6 ?C (97.8 ?F), Min:36.5 ?C (97.7 ?F), Max:36.7 ?C (98.1 ?F) Intake/Output: No intake or output data in the 24 hours ending 02/08/20 1135 Oxygen therapy: RA Admit Weight: 195 lbs Gen: AANDO x 3, NAD neck: no jugular venous distention Cardiac: S1, S2 + RRR Resp: clear to auscultation bilaterally Abd: Soft, non-tender. Bowel sounds normal. Ext: no edema, moves all extremities with no apparent weakness, left wrist with our band on, no bleeding, no hematoma Tele: normal sinus rhythm heart rate 60s and 70s Labs: No results found for this basename: CK:3,MB:3,MBP:3,CKMBP:3 ,TROPT:3 Recent Labs 02/08/20 0616 02/07/20 0149 02/06/20 1904 02/06/20 0445 02/05/20 1435 WBC 9.66* 9.81* -- -- 9.68* -- 10.04* HB 16.1 16.0 -- -- 15.4 -- 16.3 HCT 47.4 47.5 -- -- 45.0 -- 47.4 PLT 201 185 -- -- 196 -- 193 INR -- -- -- -- -- -- 1.01 APTT 45.3* 51.8* 54.0* < > 42.3* < > 26.6 < > = values in this interval not displayed. Recent Labs 02/08/20 0616 02/07/20 0257 NA 138 140 K 4.3 3.9 CHLOR 105 103 CO2 22 23 BUN 20 20 CREAT 1.39* 1.38* GLUC 198* 145* Cholesterol, Total 122 02/06/2020 HDL Cholesterol 29 02/06/2020 LDL Calculated 49 02/06/2020 DATA: Cardiac catheterization 02/08/2020: Findings: ? Angiography: ? LEFT MAIN: Occluded ? LEFT CIRCUMFLEX: occluded ? LEFT ANTERIOR DESCENDING: occluded ? RIGHT CORONARY ARTERY: occluded ? ALL SVG are occluded SANDOVAL to LAD patent [place] D1 AND D2 are before the SANDOVAL anastomosis Severe proximal D2 lesion likely the cause for angina ? LEFT VENTRICULOGRAPHY: Dilated LV with moderte LVD inferior wall severe hypokinesis with LVEF=35% ? At this point, the procedure was terminated. All diagnostic wires and catheters were removed. ? Recommendations: 1. Daily aspirin indefinitely 2. Daily plavix for at least the next 12 months, but preferably for the rat exterminator 3. Statin use 4. Secondary cardiac prevention measures. 5. Difficult complex PTCA option via the SANDOVAL , IF symptoms not resolved consider Redo CABG to D1, D 2, RCA. Await echo: Results pending ASSESSMENT AND PLAN: 1. Unstable angina/CAD: Status post cardiac catheterization as above, recommended for medical treatment, Imdur has been increased to 60 mg daily, ranolazine increased to 1000 mg twice daily. Would continue metoprolol, lisinopril, aspirin, Plavix least 12 months. Needs close follow-up appointment with his primary air brake mechanic Dr. Srivastava. 2. History of ischemic cardiomyopathy: Historically EF of 35%, on beta-bill WILL inhibitor. No evidence of any volume overload. Await repeat echocardiogram. 3. Hypertension: Blood pressure currently stable we will continue his current regimen. 4. Dyslipidemia: Continue rosuvastatin, Zetia. Total cholesterol 122, triglycerides 222, LDL 49, HDL 29. 5. Diabetes mellitus type 2: Hemoglobin A1c 8.9 patient has been on insulin, he is on Jardiance. He is on WILL inhibitor and statin. Discharge planning: Patient for probable discharge this afternoon, if left wrist site stable. Echo has been completed, results are currently pending, recommend walking in the hallway for stability prior to discharge. He needs close follow-up with his primary air brake mechanic Dr. Srivastava. SIGNATURE:Sheba Murphy APRN.DERRICK BOAT LEVER OPERATOR PAGER:[phone] DATE / TIME of SERVICE: February 08, 2020 11:35 AM This note is not final until Authenticated by responsible provider. Normal [facility] Glucose Meteron 02-08-2020 Glucose [Mass/Vol] 153 mg/dL High 70-99 [facility] Comment on above: Result Comment: ROMA Fitzgerald OTIFIED Performed By: #### G LMET #### [place] [address] Hemogramon 02-08-2020 Erythrocyte distribution width (RBC) [Ratio] 13.9 % Normal 11.6-14.4 [facility] Comment on above: Performed By: #### C BC1 #### [facility] [address], [place] [address] Hematocrit (Bld) [Volume fraction] 47.4 % Normal 40.1-51.0 [facility] Comment on above: Performed By: #### C BC1 #### [facility] [address], [place] [address] Hemoglobin (Bld) [Mass/Vol] 16.1 g/dL Normal 13.7-17.5 [facility] Comment on above: Performed By: #### C BC1 #### [facility] [address], [place] [address] MCH (RBC) [Entitic mass] 32.3 pg High 25.7-32.2 [facility] Comment on above: Performed By: #### C BC1 #### [facility] [address], [place] [address] MCHC (RBC) [Mass/Vol] 34.0 % Normal 32.3-36.5 [facility] Comment on above: Performed By: #### C BC1 #### [facility] [address], [place] [address] MCV (RBC) [Entitic vol] 95.0 fL Normal 83.2-95.6 [facility] Comment on above: Performed By: #### C BC1 #### [facility] [address], [place] [address] Platelet mean volume (Bld) [Entitic vol] 11.1 fL Normal 8.7-12.0 [facility] Comment on above: Performed By: #### C BC1 #### [facility] [address], [place] [address] Platelets (Bld) [#/Vol] 201 thou/cmm Normal 141-365 [facility] Comment on above: Performed By: #### C BC1 #### [facility] [address], [place] [address] RBC (Bld) [#/Vol] 4.99 mil/cmm Normal 4.63-6.08 [facility] Comment on above: Performed By: #### C BC1 #### [facility] [facility] [address] [address] RDW SD 48.6 fl High 36.1-45.8 [facility] Comment on above: Performed By: #### C BC1 #### [facility] [address] [place], [place] [address] WBC (Bld) [#/Vol] 9.66 thou/cmm High 4.23-9.07 [facility] Comment on above: Performed By: #### C BC1 #### [facility] [address] [place] [address] MDRD GFRon 02-08-2020 GFR/1.73 sq M predicted among non-blacks MDRD (S/P/Bld) [Vol rate/Area] 51.16 mL/min/{1.73_m2} Normal >60mL/min/1. 73m2 [facility] Comment on above: Result Comment: If t he patient is , multiply the result by 1.210. Performed By: #### C BC1 #### [facility] [address] [place] [id number] ALLIED HEALTHon 02-07-2020 ALLIED HEALTH HNO ID: [id number] Author: Chaplain Carter (Chaplain) Service: Spiritual Care Author Type: Type: Allied Health Filed: 02/07/2020 7:01 PM Note Text: SPIRITUALCARE Spiritual Care Visit- Brief Note Name: Gustavo Lange Date: February 07, 2020 Notes: Pre-surgery Patient Nothing needed tonight made Spiritual Care available. [employer] Signature: Chaplain Raul To contact the Spiritual Care Department: Please call [phone] or Page the On-Call [employer] at pager [phone] Thank you for the opportunity to be of service. This is an electronically created document. IF PRINTED, PLEASE DO NOT REMOVE FROM THE CHART OR MODIFY PRINTED COPY. Normal [facility] Activated PTTon 02-07-2020 aPTT Coag (Bld) [Time] 51.8 s High 23.0-32.4 [facility] Comment on above: Result Comment: Unfr actionated Heparin Therapeutic Ranges: Standard Heparin Nomogram: 53 to 78 seconds (anti-Xa level of 0.3 to 0.7 U/mL) Low Dose/ACS Nomogram: 49 to 67 seconds (anti-Xa level of 0.2 to 0.5 U/mL) Stroke Treatment Nomogram: 49 to 67 seconds (anti-Xa level of 0.2 to 0.5 U/mL) Note: The APTT therapeutic range has been determined for the current lot of laboratory APTT reagent in use throughout the [facility]. Performed By: #### C BC1 #### [facility] [address] [place], [place] [address] Basic Metabolic Panelon Anion gap [Moles/Vol] 14 mmol/L Normal 9-18 [facility] Comment on above: Performed By: #### C BC1 #### [address] [address] Calcium [Mass/Vol] 9.0 mg/dL Normal 8.5-10.2 [facility] Comment on above: Performed By: #### C BC1 #### [address] [address] Chloride [Moles/Vol] 103 mmol/L Normal 97-105 [facility] Comment on above: Performed By: #### C BC1 #### [facility] [address] [place], [place] [address] CO2 Blood 23 mmol/L Normal 22-30 [facility] Comment on above: Performed By: #### C BC1 #### [facility] [address] [place], [place] [address] Creatinine [Mass/Vol] 1.38 mg/dL High 0.73-1.22 [facility] Comment on above: Performed By: #### C BC1 #### [facility] [address] [place], [place] [address] Glucose [Mass/Vol] 145 mg/dL High 74-99 [facility] Comment on above: Result Comment: The [place] Diabetes Association (ADA) provides guidance for cutoff values for fasting glucose and random glucose. The ADA defines fasting as no caloric intake for at least 8 hours.Fasting plasma glucose results between 100 to 125 mg/dL indicate increased risk for diabetes (prediabetes). Fasting plasma glucose results greater than or equal to 126 mg/dL meet the criteria for diagnosis of diabetes. In the absence of unequivocal hyperglycemia, results should be confirmed by repeat testing. In a patient with classic symptoms of hyperglycemia or hyperglycemic crisis, random plasma glucose results greater than or equal to 200 mg/dL meet the criteria for diagnosis of diabetes. Reference: Standards of Medical Care in Diabetes 2016; [place] Diabetes Association. Diabetes Care. 2016;39(Suppl 1). Performed By: #### C BC1 #### [facility] [address] [place] [address] Potassium [Moles/Vol] 3.9 mmol/L Normal 3.7-5.1 [facility] Comment on above: Performed By: #### C BC1 #### [place] [address] Sodium [Moles/Vol] 140 mmol/L Normal 136-144 [facility] Comment on above: Performed By: #### C BC1 #### [place] [address] Urea nitrogen [Mass/Vol] 20 mg/dL Normal 9-24 [facility] Comment on above: Performed By: #### C BC1 #### [place] [id number] Hemogramon 02-07-2020 Erythrocyte distribution width (RBC) [Ratio] 14.1 % Normal 11.6-14.4 [facility] Comment on above: Performed By: #### C BC1 #### [facility] [address] [place], [place] [address] Hematocrit (Bld) [Volume fraction] 47.5 % Normal 40.1-51.0 [facility] Comment on above: Performed By: #### C BC1 #### [address] [address] Hemoglobin (Bld) [Mass/Vol] 16.0 g/dL Normal 13.7-17.5 [facility] Comment on above: Performed By: #### C BC1 #### [facility] [address] [place], [place] [address] MCH (RBC) [Entitic mass] 32.5 pg High 25.7-32.2 [facility] Comment on above: Performed By: #### C BC1 #### [facility] [address] [place], [place] [address] MCHC (RBC) [Mass/Vol] 33.7 % Normal 32.3-36.5 [facility] Comment on above: Performed By: #### C BC1 #### [facility] [address] [place] [address] MCV (RBC) [Entitic vol] 96.5 fL High 83.2-95.6 [facility] Comment on above: Performed By: #### C BC1 #### [facility] [address] [place] [address] Platelet mean volume (Bld) [Entitic vol] 11.2 fL Normal 8.7-12.0 [facility] Comment on above: Performed By: #### C BC1 #### [facility] [address] [place], [place] [address] Platelets (Bld) [#/Vol] 185 thou/cmm Normal 141-365 [facility] Comment on above: Performed By: #### C BC1 #### [facility] [address] [place], [place] [address] RBC (Bld) [#/Vol] 4.92 mil/cmm Normal 4.63-6.08 [facility] Comment on above: Performed By: #### C BC1 #### [facility] [address] [place], [place] [address] RDW SD 49.8 fl High 36.1-45.8 [facility] Comment on above: Performed By: #### C BC1 #### [facility] [address] [place], [place] [address] WBC (Bld) [#/Vol] 9.81 thou/cmm High 4.23-9.07 [facility] Comment on above: Performed By: #### C BC1 #### [facility] [address] [place], [place] [address] Magnesium Bloodon 02-07-2020 Magnesium [Mass/Vol] 2.2 mg/dL Normal 1.7-2.3 [facility] Comment on above: Performed By: #### C BC1 #### [facility] [address] [place], [place] [address] NURSING PROGon 02-07-2020 NURSING PROG HNO ID: [id number] Author: Saloni (Rn) ROMA Noriega Service: Nursing Author Type: Registered Nurse Type: Nursing Progress Note Filed: 02/07/2020 2:15 PM Note Text: Pt just advised this RN that at 0920 this AM he felt some chest pain and pressure. Pt had his own nitro and states he took one nitro tab which did resolve the pain/pressure. When asked why he didn't contact nursing staff at that time he stated he just didn't think to and since the nitro worked he was fine Pg'd cardiology, awaiting return phone call at this time. Will continue to monitor. 1415- Dr Kelly called back. Advised him of pt chest pain. No new orders at this time. Normal [facility] PROGRESSon 02-07-2020 PROGRESS HNO ID: [id number] Author: Jose Lawrence Service: Hospital Medicine Author Type: Physician Type: Progress Notes Filed: 02/07/2020 12:29 PM Note Text: DEPARTMENT OF HOSPITAL MEDICINE PROGRESS NOTE SERVICE DATE: 02/07/2020 SERVICE TIME: 12:20 PM Hospital Medicine/Primary Attending: Jose Lawrence MD NIGHT AND WEEKEND COVERAGE: From 7am - 7pm, please call [phone] After 7pm, please call cross cover pager #[phone] Subjective INTERVAL HPI: Reports that he's doing okay. No fever or chills. No chest pain. MEDICATIONS: Reviewed Objective PHYSICAL EXAM: BP 122/57 Pulse 67 Temp (Src) 97.9 (Oral) Resp 18 Ht 5' 8 (1.73m) Wt 193 lb 14.4 oz (88.0kg) SpO2 99% BMI 29.49 kg/(m2). O2 Therapy: Room Air Physical Exam Performed GENERAL: Alert, no distress, cooperative SKIN: Skin color, texture, turgor normal. No rashes or lesions. HEAD/SINUSES: No significant findings EYES: PERRLA, EOMI EARS: External ears normal, canals clear NOSE: Nares normal. Septum midline. OROPHARYNX: Lips, mucosa, and tongue normal. Teeth and gums normal. Oropharynx normal. NECK: No jugulovenous distention, No carotid bruits, Carotid pulse normal contour, Supple LUNGS: Lungs clear to auscultation, Good diaphragmatic excursion CARDIAC: Normal S1 and S2; no rubs, murmurs, or gallops ABDOMEN: Abdomen soft, non-tender, BS normal, No masses or organomegaly EXTREMITIES: no edema, good pulses Lines, Drains, and Airways Line Peripheral 02/05/20 Assessment Right Antecubital 20 Gauge 2 days DATA: Diagnostic tests reviewed for today's visit: Assessment/Plan 1. Chest pain/Unstable Angina: Continue heparin drip Cardiology following 2. CAD (coronary artery disease) POA: Unknown Lokesh factor modification. 3. Diabetes (HCC) POA: Unknown Please hold night time insulin if patient is NPO after midnight Continue accucheck ACHS 4. Hypertension Essential: Continue home meds. Medication and Non-Pharmacologic VTE Prophylaxis/Anticoagula nts Anticoagulant AND Antiplatelet Medications (From admission, onward) Start Dose Route Frequency Ordered Stop 02/05/20 1530 clopidogrel 75 mg tab(s) (PLAVIX) 75 mg ORAL DAILY 02/05/20 1422 -- 02/05/20 1422 heparin iv infusion (LOW DOSE ACS/NOMOGRAM) 25,000 units in NaCl 0.45% 250 mL PREMIX (Heparin Infusion + Rate Change Bolus) 0-30 mL/hr 0-3,000 Units/hr INTRAVENOUS CONTINUOUS 02/05/20 1422 -- 02/05/20 1430 vte non-pharmacologic prophylaxis - none indicated (mn,ct) 02/05/20 1430 vte current anticoag therapy (mn,ct) 02/05/20 1430 activity - mobilize patient (mn,ct) VTE Prophylaxis: VTE prophylaxis appropriate Disposition: Home Plan of care discussed with: Patient SIGNATURE: Jose Lawrence MD PATIENT NAME: Gustavo Lange DATE: February 07, 2020 TIME: 12:20 PM PAGER/CONTACT #: [phone] Normal [facility] Activated PTTon 02-06-2020 aPTT Coag (Bld) [Time] 54.0 s High 23.0-32.4 [facility] Comment on above: Result Comment: Unfr actionated Heparin Therapeutic Ranges: Standard Heparin Nomogram: 53 to 78 seconds (anti-Xa level of 0.3 to 0.7 U/mL) Low Dose/ACS Nomogram: 49 to 67 seconds (anti-Xa level of 0.2 to 0.5 U/mL) Stroke Treatment Nomogram: 49 to 67 seconds (anti-Xa level of 0.2 to 0.5 U/mL) Note: The APTT therapeutic range has been determined for the current lot of laboratory APTT reagent in use throughout the [facility]. Performed By: #### C BC1 #### [address] [address] aPTT Coag (Bld) [Time] 73.2 s High 23.0-32.4 [facility] Comment on above: Result Comment: Unfr actionated Heparin Therapeutic Ranges: Standard Heparin Nomogram: 53 to 78 seconds (anti-Xa level of 0.3 to 0.7 U/mL) Low Dose/ACS Nomogram: 49 to 67 seconds (anti-Xa level of 0.2 to 0.5 U/mL) Stroke Treatment Nomogram: 49 to 67 seconds (anti-Xa level of 0.2 to 0.5 U/mL) Note: The APTT therapeutic range has been determined for the current lot of laboratory APTT reagent in use throughout the [facility]. Performed By: #### C BC1 #### [address] [address] aPTT Coag (Bld) [Time] 42.3 s High 23.0-32.4 [facility] Comment on above: Result Comment: Unfr actionated Heparin Therapeutic Ranges: Standard Heparin Nomogram: 53 to 78 seconds (anti-Xa level of 0.3 to 0.7 U/mL) Low Dose/ACS Nomogram: 49 to 67 seconds (anti-Xa level of 0.2 to 0.5 U/mL) Stroke Treatment Nomogram: 49 to 67 seconds (anti-Xa level of 0.2 to 0.5 U/mL) Note: The APTT therapeutic range has been determined for the current lot of laboratory APTT reagent in use throughout the [facility]. Performed By: #### A PTT #### [facility] [address] [place], [place] [address] aPTT Coag (Bld) [Time] 50.9 s High 23.0-32.4 [facility] Comment on above: Result Comment: Unfr actionated Heparin Therapeutic Ranges: Standard Heparin Nomogram: 53 to 78 seconds (anti-Xa level of 0.3 to 0.7 U/mL) Low Dose/ACS Nomogram: 49 to 67 seconds (anti-Xa level of 0.2 to 0.5 U/mL) Stroke Treatment Nomogram: 49 to 67 seconds (anti-Xa level of 0.2 to 0.5 U/mL) Note: The APTT therapeutic range has been determined for the current lot of laboratory APTT reagent in use throughout the [facility]. Performed By: #### A PTT #### [facility] [address] [place], [place] [address] CONSULTon 02-06-2020 CONSULT HNO ID: [id number] Author: Bharati Kelly Service: Cardiovascular Medicine Author Type: Physician Type: Consults Filed: 02/06/2020 10:52 AM Note Text: CARDIOLOGY CONSULT NOTE REASON FOR CONSULT: Chest pain REQUESTING PHYSICIAN: Dr. Esparza HPI: Mr. Lange is a 64 year old male on whom Cardiology is consulted for chest pain. Medical history significant for -CAD with history of CABG in 1995 - SANDOVAL to LAD, SVG to Dx, SVG to IR, SVG to RCA, all grafts except SANDOVAL to LAD were occluded as per cardiac catheterization in 04/2019 -Hypertension -Hyperlipidemia -DM 2 -Former smoker -Prostate cancer status post surgery -Over weight -BMI 29 Patient initially presented to outside hospital ED with recurrent chest pain overnight. He mentions he had 5 episodes of chest pain within 6 hour time period and each one of those were relieved with one tablet of sublingual nitroglycerin. Troponin I at outside hospital was negative. EKG showed inferior Q waves which are old but new T-wave inversions in lead 1 and aVL. Creatinine was 1.3. He was transferred to [facility] for further management. Since arrival to [place], he has been chest pain-free. Labs significant for high sensitivity troponin 15. He was started on IV heparin for unstable angina. History states he had exertional angina with climbing stairs for a long time but this chest pain at rest was new. PAST MEDICAL HISTORY Diagnosis Date - DIABETES MELLITUS UNCOMP Diabetes mellitus - MIXED HYPERLIPIDEMIA Hyperlipidemia PAST SURGICAL HISTORY Procedure Laterality Date - CABG, ARTERY-VEIN, FOUR CABG, quadruple grafts - REMV PROSTATE, PERINEAL, RAD, LTD NODES 2007 - VASECTOMY SOCIAL HISTORY Social History Tobacco Use - Smoking status: Never Smoker Substance Use Topics - Alcohol use: No - Drug use: No FAMILY HISTORY Problem Relation Age of Onset - Diabetes Mother - Heart Father Family history was reviewed and non-contributory. ALLERGIES No Known Allergies MEDICATIONS: allopurinol (ZYLOPRIM) 100 mg tablet Take 100 mg by mouth once daily. ascorbic acid, vitamin C, (VITAMIN C) 500 mg tablet Take 500 mg by mouth once daily. clopidogrel (PLAVIX) 75 mg tablet Take 75 mg by mouth once daily. ranolazine ER (RANEXA) 500 mg 12 hr tablet Take 1,000 mg by mouth twice daily. MAGNESIUM CHLORIDE ORAL Take 250 mg by mouth once daily. metoprolol tartrate, short acting, (LOPRESSOR) 100 mg tablet Take 100 mg by mouth twice daily. insulin glargine (LANTUS SOLOSTAR, BASAGLAR KWIKPEN) 100 unit/mL (3 mL) Inject 50 Units subcutaneously twice daily. insulin regular human (NOVOLIN R REGULAR U-100 INSULN) 100 unit/mL injection Inject 18 Units subcutaneously three times daily before meals. Plus sliding scale metFORMIN (GLUCOPHAGE) 500 mg tablet Take 500 mg by mouth twice daily. isosorbide mononitrate ER (IMDUR) 30 mg 24 hr tablet Take 30 mg by mouth once daily. fluticasone (FLONASE ALLERGY RELIEF) 50 mcg/actuation nasal spray Use 1 Mutual in each nostril once daily. nitroglycerin sublingual (NITROSTAT) 0.3 mg SL tablet Dissolve 0.3 mg under the tongue every 5 minutes as needed for Chest Pain. empagliflozin (JARDIANCE) 25 mg tablet Take 12.5 mg by mouth daily with breakfast. rosuvastatin calcium(CRESTOR 20 MG TAB) Take 20 mg by mouth once daily. ASPIRIN 325 MG TAB Take one(1) tablet daily. FOLIC ACID 1 MG TAB Take 1 mg by mouth once daily. ezetimibe(ZETIA 10 MG TAB) Take one(1) tablet daily. PEPCID 20 MG TAB Take 20 mg by mouth once daily. MONOPRIL 10 MG TAB Take 10 mg by mouth once daily. REVIEW OF SYSTEMS: GENERAL: Negative for:Weight loss and Weight gain HEENT: Negative for:Nosebleeds RESPIRATORY: Negative for:Shortness of breath GASTROINTESTINAL: Negative for:Blood in stool MUSCULOSKELETAL: Negtive for: Muscle or joint pain, stiffness, Joint swelling SKIN: No rash HEMATOLOGICAL/LYMPHATIC : Negative for: Easy bruising and Easy bleeding CARDIOVASCULAR: As stated in HPI. 10 system review negative except as stated in HPI PHYSICAL EXAMINATION: BP 119/62 Pulse 68 Temp 36.8 ?C (98.2 ?F) (Oral) Resp 18 Ht 172.7 cm (5' 8) Wt 88.6 kg (195 lb 5.2 oz) SpO2 97% BMI 29.70 kg/m? General: Well appearing, appears stated age and in no acute distress. Psych: Normal Affect Eyes: No subconjunctival hemorrhage Skin: No rash, bruising Oropharynx: Mucous membranes normal Neck: no jugular venous distention, no carotid bruits. Lymph: No cervical lymphadenopathy Lungs: Clear to auscultation bilaterally, no wheezing or rhonchi. Heart: S1, S2 normal, no murmur Extremities: No peripheral edema Neuro: Grossly nonfocal LABS Recent Labs 02/06/20 0445 02/05/20 1435 WBC 9.68* -- 10.04* RBC 4.81 -- 4.96 HB 15.4 -- 16.3 HCT 45.0 -- 47.4 PLT 196 -- 193 PTSEC -- -- 10.9 APTT 42.3* < > 26.6 INR -- -- 1.01 < > = values in this interval not displayed. Triglyceride 222 02/06/2020 HDL Cholesterol 29 02/06/2020 LDL Calculated 49 02/06/2020 Cholesterol, Total 122 02/06/2020 Cardiac Workup: EKG at outside hospital: Sinus bradycardia Inferior Q waves - old New T-wave inversions in lead 1 and aVL Cardiac catheterization at [facility] on 04/18/2019 LM - Severe diffuse disease of the entire left main LAD - 100% proximally occluded LCX - 99% proximal LX stenosis with trickle antegrade flow RCA - 100% proximally occluded; dominant vessel SANDOVAL-LAD - Widely patent and tortuous; flow from SANDOVAL backfills a diagonal branch and Ramus Intermedius; distal LAD after the SANDOVAL provides L->R collaterals No angiographically significant stenosis of the LSCA; no hemodynamically significant gradient on pullback across the LSCA LVEDP ~5 mmHg; no hemodynamically significant gradient on pullback across the aortic valve Aortogram shows a Type II arch with no evident vein grafts Echo at [facility] 04/19/2019 1. The left ventricular chamber size is normal. Mild concentric left ventricular hypertrophy is observed. There are left ventricular segmental wall motion abnormalities present, as shown in the diagram below. ?There is normal global left ventricular systolic function. The quantitative left ventricular ejection fraction by biplane Menendez's method is 56%. 2. Right ventricular chamber size, wall thickness, and systolic function are within normal limits. 3. There is mild (1+/4+) mitral regurgitation present. 4. The estimated pulmonary artery systolic pressure is 18 mmHg plus RAP. IMPRESSION: -Unstable angina -CAD with history of CABG in 1995 - SANDOVAL to LAD, SVG to Dx, SVG to IR, SVG to RCA, all grafts except SANDOVAL to LAD were occluded as per cardiac catheterization in 04/2019 -Hypertension -Hyperlipidemia -DM 2 -Former smoker -Prostate cancer status post surgery -Over weight -BMI 29 PLAN: -Continue IV heparin per ACS protocol -Obtain echocardiogram -Recheck CBC and BMP, creatinine at outside hospital was 1.3 -Decrease aspirin dose to 81 mg daily, continue home dose of Plavix -Continue Lipitor and Zetia -Increase Imdur to 60 mg daily, will gradually titrate up -Continue metoprolol 100 mg twice daily -Continue home dose of Ranexa 1000 mg twice a day -Continue lisinopril 10 mg daily -Keep nothing by mouth past Saturday night -Plan for cardiac catheterization on Saturday (previous cath report from [facility] copied above, details in care everywhere) Cardiology will follow up. Please call back with questions or if clinical condition changes. Thank you for allowing me to participate in the care of this patient. Please don't hesitate to contact me if there are any questions regarding the care of our mutual patient. Bharati Kelly M.D. Cardiovascular Medicine Pager: [phone] February 06, 2020 Normal [facility] Coronavirus 2019on 0 COVID 19 Result AUTOMATIC MOLD SANDER Negative Normal [facility] Comment on above: Result Comment: Nega tive for COVID19 (SARS CoV2) by PCR. This test was developed and its performance characteristics determined by [facility] [place]. This test has been authorized by FDA under an Emergency Use Authorization (EUA). This test has been validated in accordance with the FDA's Guidance Document Policy for Diagnostics Testing in Laboratories Certified to Perform High Complexity Testing under CLIA prior to Emergency use Authorization for Coronavirus Disease 2019 during the Public Health Emergency issued on October 03, 2019. Performing Laboratory: [facility] [address] [place] [address] Performed By: #### C BC1 #### [place] [address] Hemogramon 02-06-2020 Erythrocyte distribution width (RBC) [Ratio] 13.7 % Normal 11.6-14.4 [facility] Comment on above: Performed By: #### C BC1 #### [place] [address] Hematocrit (Bld) [Volume fraction] 45.0 % Normal 40.1-51.0 [facility] Comment on above: Performed By: #### C BC1 #### [address] [address] Hemoglobin (Bld) [Mass/Vol] 15.4 g/dL Normal 13.7-17.5 [facility] Comment on above: Performed By: #### C BC1 #### [address] [address] MCH (RBC) [Entitic mass] 32.0 pg Normal 25.7-32.2 [facility] Comment on above: Performed By: #### C BC1 #### [address] [address] MCHC (RBC) [Mass/Vol] 34.2 % Normal 32.3-36.5 [facility] Comment on above: Performed By: #### C BC1 #### [facility] [address] [place], [place] [address] MCV (RBC) [Entitic vol] 93.6 fL Normal 83.2-95.6 [facility] Comment on above: Performed By: #### C BC1 #### [facility] [address] [place], [place] [address] Platelet mean volume (Bld) [Entitic vol] 11.8 fL Normal 8.7-12.0 [facility] Comment on above: Performed By: #### C BC1 #### [facility] [address] [place], [place] [address] Platelets (Bld) [#/Vol] 196 thou/cmm Normal 141-365 [facility] Comment on above: Performed By: #### C BC1 #### [facility] [address] [place], [place] [address] RBC (Bld) [#/Vol] 4.81 mil/cmm Normal 4.63-6.08 [facility] Comment on above: Performed By: #### C BC1 #### [facility] [address] [place], [place] [address] RDW SD 46.9 fl High 36.1-45.8 [facility] Comment on above: Performed By: #### C BC1 #### [facility] [address] [place], [place] [address] WBC (Bld) [#/Vol] 9.68 thou/cmm High 4.23-9.07 [facility] Comment on above: Performed By: #### C BC1 #### [facility] [address] [place], [place] [address] Lipid Profile, [facility] 02-05 Cholesterol [Mass/Vol] 122 mg/dL Normal 0-199 [facility] Comment on above: Result Comment: Tota l Cholesterol < 200 mg/dL, Desirable Total Cholesterol 200 to 239 mg/dL, Borderline high Total Cholesterol > 239 mg/dL, High Performed By: #### C BC1 #### [facility] [address] [place], [place] [address] Cholesterol in HDL [Mass/Vol] 29 mg/dL Normal [facility] Comment on above: Result Comment: Refe rence Range: HDL Cholesterol 40- 59 mg/dL, Acceptable HDL Cholesterol >59 mg/dL, High; Negative risk factor for coronary heart disease HDL Cholesterol <40 mg/dL, Low; Positive risk factor for coronary heart disease Performed By: #### C BC1 #### [place] [address] Cholesterol in LDL [Mass/Vol] 49 mg/dL Normal 0-99 [facility] Comment on above: Result Comment: LDL Cholesterol < 100 mg/dL, Optimal LDL Cholesterol 100 to 129 mg/dL, Near optimal/above optimal LDL Cholesterol 130 to 159 mg/dL, Borderline high LDL Cholesterol 160 to 189 mg/dL, High LDL Cholesterol > 189 mg/dL, Very high Secondary prevention optimal LDL Cholesterol levels are recommended to be < 70 mg/dL Performed By: #### C BC1 #### [place] [address] Cholesterol in LDL/Cholesterol in HDL [Mass ratio] 1.69 Normal 0.00-2.53 [facility] Comment on above: Performed By: #### C BC1 #### [place] [address] Cholesterol.total/Cho lesterol in HDL [Mass ratio] 4.21 {ratio} Normal 0.00-5.09 [facility] Comment on above: Performed By: #### C BC1 #### [place] [address] Non-HDL Cholesterol 93 mg/dL Normal 0-129 [facility] Comment on above: Result Comment: Non HDL Cholesterol < 130 mg/dL, Optimal Non HDL Cholesterol 130 to 159 mg/dL, Near optimal/above optimal Non HDL Cholesterol 160 to 189 mg/dL, Borderline high Non HDL Cholesterol 190 to 219 mg/dL, High Non HDL Cholesterol > 219 mg/dL, Very high Secondary prevention optimal non HDL Cholesterol levels are recommended to be < 100 mg/dL Performed By: #### C BC1 #### [place] [address] Triglyceride Blood 222 mg/dL High 0-149 [facility] Comment on above: Result Comment: Trig lycerides < 150 mg/dL, Normal Triglycerides 150 to 199 mg/dL, Borderline high Triglycerides 200 to 499 mg/dL, High Triglycerides > 499 mg/dL, Very high Performed By: #### C BC1 #### [facility] [address], [place] [address] VLDL Cholesterol 44 mg/dL High 0-29 [facility] Comment on above: Performed By: #### C BC1 #### [facility] [address] [place], [place] [address] PROGRESSon 02-06-2020 PROGRESS HNO ID: [id number] Author: Jose Lawrence Service: Hospital Medicine Author Type: Physician Type: Progress Notes Filed: 02/06/2020 11:42 AM Note Text: DEPARTMENT OF HOSPITAL MEDICINE PROGRESS NOTE SERVICE DATE: 02/06/2020 SERVICE TIME: 11:34 AM Hospital Medicine/Primary Attending: Jose Lawrence MD NIGHT AND WEEKEND COVERAGE: From 7am - 7pm, please call [phone] After 7pm, please call cross cover pager #[phone] Subjective INTERVAL HPI: Reports that he is comfortable now. Denied fever or chills. No chest pain. No nausea or vomiting. MEDICATIONS: Reviewed Objective PHYSICAL EXAM: BP 119/62 Pulse 68 Temp (Src) 98.2 (Oral) Resp 18 Ht 5' 8 (1.73m) Wt 195 lb 5.2 oz (88.6kg) SpO2 97% BMI 29.71 kg/(m2). O2 Therapy: Room Air Physical Exam Performed GENERAL: Alert, no distress, cooperative SKIN: Skin color, texture, turgor normal. No rashes or lesions. HEAD/SINUSES: No significant findings EYES: PERRLA, EOMI EARS: External ears normal, canals clear NOSE: Nares normal. Septum midline. OROPHARYNX: Lips, mucosa, and tongue normal. Teeth and gums normal. Oropharynx normal. NECK: No jugulovenous distention, No carotid bruits, Carotid pulse normal contour, Supple LUNGS: Lungs clear to auscultation, Good diaphragmatic excursion CARDIAC: Normal S1 and S2; no rubs, murmurs, or gallops ABDOMEN: Abdomen soft, non-tender, BS normal, No masses or organomegaly EXTREMITIES: Extremities normal, no deformities, edema, clubbing or skin discoloration. Good capillary refill., No ulcers NEURO: Grossly intact PULSES: 2+ radial, 2+ carotid Lines, Drains, and Airways Line Peripheral 02/05/20 Assessment Right Antecubital 20 Gauge 1 day DATA: Diagnostic tests reviewed for today's visit: Assessment/Plan 1. Chest pain/unstable angina: Continue IV heparin drip Appreciate cardiology input. Tentative cardiac cath on saturday 2. CAD (coronary artery disease): Risk factor modifications 3. Diabetes mellitus type 2: Continue home medication Diabetic diet accucheck ACHS 4. Hypertension Essential: On home meds Resolved Problems: * No resolved hospital problems. * Medication and Non-Pharmacologic VTE Prophylaxis/Anticoagula nts Anticoagulant AND Antiplatelet Medications (From admission, onward) Start Dose Route Frequency Ordered Stop 02/05/20 1530 clopidogrel 75 mg tab(s) (PLAVIX) 75 mg ORAL DAILY 02/05/20 1422 -- 02/05/20 1422 heparin iv infusion (LOW DOSE ACS/NOMOGRAM) 25,000 units in NaCl 0.45% 250 mL PREMIX (Heparin Infusion + Rate Change Bolus) 0-30 mL/hr 0-3,000 Units/hr INTRAVENOUS CONTINUOUS 02/05/20 1422 -- 02/05/20 1430 vte non-pharmacologic prophylaxis - none indicated (mn,ct) 02/05/20 1430 vte current anticoag therapy ([place] 02/05/20 1430 activity - mobilize patient ([place]) VTE Prophylaxis: VTE prophylaxis appropriate Disposition: Home Plan of care discussed with: Patient SIGNATURE: Jose Lawrence MD PATIENT NAME: Gustavo Lange DATE: February 06, 2020 TIME: 11:34 AM PAGER/CONTACT #: [phone] Normal [facility] Activated PTTon 02-05-2020 aPTT Coag (Bld) [Time] 26.6 s Normal 23.0-32.4 [facility] Comment on above: Result Comment: Unfr actionated Heparin Therapeutic Ranges: Standard Heparin Nomogram: 53 to 78 seconds (anti-Xa level of 0.3 to 0.7 U/mL) Low Dose/ACS Nomogram: 49 to 67 seconds (anti-Xa level of 0.2 to 0.5 U/mL) Stroke Treatment Nomogram: 49 to 67 seconds (anti-Xa level of 0.2 to 0.5 U/mL) Note: The APTT therapeutic range has been determined for the current lot of laboratory APTT reagent in use throughout the [facility]. Performed By: #### A PTT #### [facility] [address] [place] [address] HISTORY PHYSICALon 0 HISTORY PHYSICAL HNO ID: [id number] Author: Leanna Moore Service: Hospital Medicine Author Type: Nurse Practitioner Type: HANDP Filed: 02/05/2020 1:37 PM Note Text: Attestation signed by Elda Esparza at 02/05/2020 2:21 PM Patient independently seen and examined. Agree with DERRICK BOAT LEVER OPERATOR note. Please see my plan of care note/documentation for more details. DEPARTMENT OF [facility] MEDICINE HISTORY AND PHYSICAL EXAM SERVICE DATE: 02/05/2020 SERVICE TIME: 1:28 PM Primary Care Physician: No primary care provider on file. NIGHT AND WEEKEND COVERAGE: After 7pm call #[phone] Chief complaint: chest pain HPI: This is a 64 y/o male with prior history of CAD, DM and HLD. Patient had CABG in the past. Heart catheterization in 2018 showed 3 out of 4 vessels were closed. Patient presents with persistent chest pain. Initial onset was at 0200 this morning which was relieved with NTG. Pain came back a few hours later prompting him to go to [place] ED. Pain is non-radiating. No associated dyspnea. No nausea or vomiting. No diaphoresis. EKG showed sinus bradycardia at 55. CXR with right lung scarring. Troponin <0.015. Dr. Esparza discussed his case with Dr. Kelly from cardiology who recommended heparin drip and likely heart cath on Saturday. Heparin d/w patient who is agreeable with plan. He is currently not having any symptoms of chest pain or dyspnea. PAST MEDICAL HISTORY Diagnosis Date - DIABETES MELLITUS UNCOMP Diabetes mellitus - MIXED HYPERLIPIDEMIA Hyperlipidemia PAST SURGICAL HISTORY Procedure Laterality Date - CABG, ARTERY-VEIN, FOUR CABG, quadruple grafts - REMV PROSTATE, PERINEAL, RAD, LTD NODES 2007 - VASECTOMY FAMILY HISTORY Problem Relation Age of Onset - Diabetes Mother - Heart Father Social History Tobacco Use - Smoking status: Never Smoker Substance Use Topics - Alcohol use: No - Drug use: No HOME MEDICATIONS: Prior to Admission Medications Prescriptions Last Dose Informant Patient Reported? Taking? ASPIRIN 325 MG TAB Yes Yes Sig: Take one(1) tablet daily. COMPOUNDED PRESCRIPTION Yes No Sig: vitamin c 500mg daily FOLIC ACID 1 MG TAB Yes Yes Sig: Take 1 mg by mouth once daily. INSULIN REGULAR HUMAN 100 UNIT/ML INJECTION Yes No Si units each meal LIPITOR 40 MG TAB Yes No Sig: Take one(1) tablet daily. MAGNESIUM CHLORIDE ORAL Yes Yes Sig: Take 250 mg by mouth once daily. MONOPRIL 10 MG TAB Yes Yes Sig: Take 10 mg by mouth once daily. PEPCID 20 MG TAB Yes Yes Sig: Take 20 mg by mouth once daily. allopurinol (ZYLOPRIM) 100 mg tablet Yes Yes Sig: Take 100 mg by mouth once daily. ascorbic acid, vitamin C, (VITAMIN C) 500 mg tablet Yes Yes Sig: Take 500 mg by mouth once daily. clopidogrel (PLAVIX) 75 mg tablet Yes Yes Sig: Take 75 mg by mouth once daily. ezetimibe(ZETIA 10 MG TAB) Yes Yes Sig: Take one(1) tablet daily. insulin glargine,hum.rec.anlog( LANTUS 100 UNIT/ML SUB-Q) Yes No Sig: Use as directed.45units am 30 units pm metoprolol tartrate, short acting, (LOPRESSOR) 100 mg tablet Yes Yes Sig: Take 100 mg by mouth twice daily. ranolazine ER (RANEXA) 500 mg 12 hr tablet Yes Yes Sig: Take 1,000 mg by mouth twice daily. rosuvastatin calcium(CRESTOR 20 MG TAB) Yes Yes Sig: Take 20 mg by mouth once daily. Facility-Administered Medications: None ALLERGIES No Known Allergies REVIEW OF SYSTEM: Chest pain earlier today that is now resolved. All systems reviewed and negative except as stated in HPI PHYSICAL EXAM: There were no vitals taken for this visit. GENERAL: Alert, no distress, cooperative SKIN: No rash HEAD/SINUSES: No significant findings, normocephalic, atraumatic NECK: No jugulovenous distention, No carotid bruits LUNGS: Lungs clear to auscultation, Unlabored CARDIAC: Normal S1 and S2; no rubs, murmurs, or gallops ABDOMEN: Abdomen soft, non-tender, BS normal EXTREMITIES: Extremities normal. no deformities, edema, or clubbing NEURO: AANDOX3, speech fluent DATA: Diagnostic tests reviewed for today's visit: No results found for: WBC, RBC, HB, HCT, MCV, MCH, MCHC, RDWCV, PLT, MPV, GLUC, BUN, CREAT, NA, K, CHLOR, CO2, TPROT, ALB, CA, ALKPHOS, TBILI, AST, ALT, SANJIV, ESRMM, SSA, SSB, CRYO, CRYOQ, RF, AHBSQ, HEPCABEIA URINLAYSIS No results found for: PH, SPGR, UGLUC, UBILI, UKET, UHB, UPROT, UROBIL, UWBC, SSA Most recent labs and imaging results. Assessment/Plan #chest pain -patient with strong cardiac history. S/P CABG with 3 of 4 vessels down and has been medically managed to this point -start heparin gtt -monitor on tele -check another troponin -plan for heart cath on Saturday -continue aspirin, plavix and beta bill -continue ranexa and imdur with PRN NTG #CAD -continue cardioprotective meds -see above plan #IDDM -continue insulin with accuchecks and sliding scale -check A1c #HLD -continue crestor VTE Prophylaxis: heparin gtt Disposition: Home Plan of care discussed with: Provider, RN, Patient SIGNATURE: Leanna Moore APRN.CNP PATIENT NAME: Gustavo Lange DATE: February 05, 2020 TIME: 1:28 PM PAGER/CONTACT #: [phone] Normal [facility] HOSPon 02-05-2020 HOSP Patient:Beot Lange on MRN: Height:5' 8(1.727 m) Weight:193 lb 14.4 oz (87.952 kg) Outpatient Medications as of 02/08/20: allopurinol (ZYLOPRIM) 100 mg tablet ascorbic acid, vitamin C, (VITAMIN C) 500 mg tablet clopidogrel (PLAVIX) 75 mg tablet ranolazine ER (RANEXA) 500 mg 12 hr tablet MAGNESIUM CHLORIDE ORAL metoprolol tartrate, short acting, (LOPRESSOR) 100 mg tablet insulin glargine (LANTUS SOLOSTAR, BASAGLAR KWIKPEN) 100 unit/mL (3 mL) insulin regular human (NOVOLIN R REGULAR U-100 INSULN) 100 unit/mL injection metFORMIN (GLUCOPHAGE) 500 mg tablet isosorbide mononitrate ER (IMDUR) 30 mg 24 hr tablet fluticasone (FLONASE ALLERGY RELIEF) 50 mcg/actuation nasal spray nitroglycerin sublingual (NITROSTAT) 0.3 mg SL tablet empagliflozin (JARDIANCE) 25 mg tablet rosuvastatin calcium(CRESTOR 20 MG TAB) ASPIRIN 325 MG TAB FOLIC ACID 1 MG TAB ezetimibe(ZETIA 10 MG TAB) PEPCID 20 MG TAB MONOPRIL 10 MG TAB Admission/Clinic Administered Medications as of 02/08/20: NaCl 0.9% iv infusion aspirin 81 mg tab(s) isosorbide mononitrate ER 60 mg tab(s) (IMDUR) ranolazine ER 1,000 mg tab(s) (RANEXA) metoprolol tartrate (short acting) 100 mg tab(s) (LOPRESSOR) folic acid 1 mg tab(s) pantoprazole DR 20 mg tab(s) (PROTONIX) allopurinol 100 mg tab(s) (ZYLOPRIM) ezetimibe 10 mg tab(s) (ZETIA) clopidogrel 75 mg tab(s) (PLAVIX) ascorbic acid (vitamin C) 500 mg tab(s) (VITAMIN C) insulin glargine 50 Units pen (long acting) (LANTUS SOLOSTAR, BASAGLAR KWIKPEN) insulin regular human 18 Units injection (short acting) (NovoLIN R,HumuLIN R) empagliflozin 12.5 mg tab(s) (JARDIANCE) nitroglycerin sublingual 0.4 mg tab(s) (NITROQUICK) dextrose 40 % 15 g glucagon 1 mg injection (GLUCAGEN) dextrose 50% in water 25 mL syringe ondansetron 4 mg tab(s) (ZOFRAN) ondansetron (PF) 4 mg injection (ZOFRAN) acetaminophen 650 mg tab(s) (TYLENOL) insulin lispro pen (rapid acting) (HumaLOG KWIKPEN) lisinopril 10 mg tab(s) (ZESTRIL, PRINIVIL) heparin iv infusion (LOW DOSE ACS/NOMOGRAM) 25,000 units in NaCl 0.45% 250 mL PREMIX heparin RATE CHANGE bolus 1,000-4,000 Units for subtherapeutic aptt results perflutren lipid microspheres 1.1 mg/mL 1.3 mL injection (DEFINITY) atorvastatin 40 mg tab(s) (LIPITOR) Problem List: Chest pain [R07.9] CAD (coronary artery disease) [I25.10] Diabetes (HCC) [E11.9] Allergies: No Known Allergies Date Verified:02/08/20 Lab Values Lab Value Units Date High Low POTA* 4.3 mmol/L 02/08/2020 5.1 3.7 MOE* 47.4 % 02/08/2020 51.0 40.1 Progress Notes (): Leanna Moore APRN.CNP 02/05/2020 1:37 PM Attested Attestation signed by Elda Esparza at 02/05/2020 2:21 PM Patient independently seen and examined. Agree with DERRICK BOAT LEVER OPERATOR note. Please see my plan of care note/documentation for more details. DEPARTMENT OF HOSPITAL MEDICINE HISTORY AND PHYSICAL EXAM SERVICE DATE: 02/05/2020 SERVICE TIME: 1:28 PM Primary Care Physician: No primary care provider on file. NIGHT AND WEEKEND COVERAGE: After 7pm call #[phone] Chief complaint: chest pain HPI: This is a 64 y/o male with prior history of CAD, DM and HLD. Patient had CABG in the past. Heart catheterization in 2018 showed 3 out of 4 vessels were closed. Patient presents with persistent chest pain. Initial onset was at 0200 this morning which was relieved with NTG. Pain came back a few hours later prompting him to go to [place] ED. Pain is non-radiating. No associated dyspnea. No nausea or vomiting. No diaphoresis. EKG showed sinus bradycardia at 55. CXR with right lung scarring. Troponin <0.015. Dr. Esparza discussed his case with Dr. Kelly from cardiology who recommended heparin drip and likely heart cath on Saturday. Heparin d/w patient who is agreeable with plan. He is currently not having any symptoms of chest pain or dyspnea. PAST MEDICAL HISTORY Diagnosis Date - DIABETES MELLITUS UNCOMP Diabetes mellitus - MIXED HYPERLIPIDEMIA Hyperlipidemia PAST SURGICAL HISTORY Procedure Laterality Date - CABG, ARTERY-VEIN, FOUR CABG, quadruple grafts - REMV PROSTATE, PERINEAL, RAD, LTD NODES 2006 - VASECTOMY FAMILY HISTORY Problem Relation Age of Onset - Diabetes Mother - Heart Father Social History Tobacco Use - Smoking status: Never Smoker Substance Use Topics - Alcohol use: No - Drug use: No HOME MEDICATIONS: Prior to Admission Medications Prescriptions Last Dose Informant Patient Reported? Taking? ASPIRIN 325 MG TAB Yes Yes Sig: Take one(1) tablet daily. COMPOUNDED PRESCRIPTION Yes No Sig: vitamin c 500mg daily FOLIC ACID 1 MG TAB Yes Yes Sig: Take 1 mg by mouth once daily. INSULIN REGULAR HUMAN 100 UNIT/ML INJECTION Yes No Si units each meal LIPITOR 40 MG TAB Yes No Sig: Take one(1) tablet daily. MAGNESIUM CHLORIDE ORAL Yes Yes Sig: Take 250 mg by mouth once daily. MONOPRIL 10 MG TAB Yes Yes Sig: Take 10 mg by mouth once daily. PEPCID 20 MG TAB Yes Yes Sig: Take 20 mg by mouth once daily. allopurinol (ZYLOPRIM) 100 mg tablet Yes Yes Sig: Take 100 mg by mouth once daily. ascorbic acid, vitamin C, (VITAMIN C) 500 mg tablet Yes Yes Sig: Take 500 mg by mouth once daily. clopidogrel (PLAVIX) 75 mg tablet Yes Yes Sig: Take 75 mg by mouth once daily. ezetimibe(ZETIA 10 MG TAB) Yes Yes Sig: Take one(1) tablet daily. insulin glargine,hum.rec.anlog( LANTUS 100 UNIT/ML SUB-Q) Yes No Sig: Use as directed.45units am 30 units pm metoprolol tartrate, short acting, (LOPRESSOR) 100 mg tablet Yes Yes Sig: Take 100 mg by mouth twice daily. ranolazine ER (RANEXA) 500 mg 12 hr tablet Yes Yes Sig: Take 1,000 mg by mouth twice daily. rosuvastatin calcium(CRESTOR 20 MG TAB) Yes Yes Sig: Take 20 mg by mouth once daily. Facility-Administered Medications: None ALLERGIES No Known Allergies REVIEW OF SYSTEM: Chest pain earlier today that is now resolved. All systems reviewed and negative except as stated in HPI PHYSICAL EXAM: There were no vitals taken for this visit. GENERAL: Alert, no distress, cooperative SKIN: No rash HEAD/SINUSES: No significant findings, normocephalic, atraumatic NECK: No jugulovenous distention, No carotid bruits LUNGS: Lungs clear to auscultation, Unlabored CARDIAC: Normal S1 and S2; no rubs, murmurs, or gallops ABDOMEN: Abdomen soft, non-tender, BS normal EXTREMITIES: Extremities normal. no deformities, edema, or clubbing NEURO: AANDOX3, speech fluent DATA: Diagnostic tests reviewed for today's visit: No results found for: WBC, RBC, HB, HCT, MCV, MCH, MCHC, RDWCV, PLT, MPV, GLUC, BUN, CREAT, NA, K, CHLOR, CO2, TPROT, ALB, CA, ALKPHOS, TBILI, AST, ALT, SANJIV, ESRMM, SSA, SSB, CRYO, CRYOQ, RF, AHBSQ, HEPCABEIA URINLAYSIS No results found for: PH, SPGR, UGLUC, UBILI, UKET, UHB, UPROT, UROBIL, UWBC, SSA Most recent labs and imaging results. Assessment/Plan #chest pain -patient with strong cardiac history. S/P CABG with 3 of 4 vessels down and has been medically managed to this point -start heparin gtt -monitor on tele -check another troponin -plan for heart cath on Saturday -continue aspirin, plavix and beta bill -continue ranexa and imdur with PRN NTG #CAD -continue cardioprotective meds -see above plan #IDDM -continue insulin with accuchecks and sliding scale -check A1c #HLD -continue crestor VTE Prophylaxis: heparin gtt Disposition: Home Plan of care discussed with: Provider, RN, Patient SIGNATURE: Leanna Moore APRN.CNP PATIENT NAME: Gustavo Lange DATE: February 05, 2020 TIME: 1:28 PM PAGER/CONTACT #: [phone] Elda Esparza, 02/05/2020 2:20 PM Signed Patient independently seen and examined. Agree with DERRICK BOAT LEVER OPERATOR note. Please see additional documentation as below for further details. 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 Then an hour later another similar episode, and every hour thereafter for the next 3 hours. Last episode of chest pain at approximately 7AM and none since. He presented to [facility] [facility] for eval but was transferred to [facility] for further work-up and management. I have discussed case with cardiology who recommends initiating heparin gtt and will follow with patient. Trop I at [place] >0.01, will repeat HS trop here. Cardiology anticipating [facility] and echo for w/u. Physical exam: Constitutional - Alert and oriented, no acute distress Resp - CTA b/l, no wheezes, crackles or rales, no labored breathing CVS- RRR. No murmur, gallop or rub, pulse 2+ GI - NTND, bowel sounds throughout, no mass palpable MULTIPLE EFFECT EVAPORATOR OPERATOR- CN II-XII grossly intact, no focal motor or sensory deficits noted, speech normal Psych- A ANDO x 3, mood normal, normal and nonpressured speech Skin- Normal tugor, no ulcers or rashes, old CABG scar midsternal A/P: Unstable angina with severe underlying known cardiac disease -Consult cardiology -start hep gtt -trend trops/EKG -nitro PRN -Continue home meds HTN, c/w home meds HLD c/w home meds IDDM, SSI/accuchecks COVID testing not done at [place], will check here for asymptomatic r/o Esequiel Phillips Pharmacist 02/05/2020 4:33 PM Signed MEDICATION HISTORY AND MEDICATION RECONCILIATION Patient Name:Mir Lange : 1955 Source of history:Patient who presents list that matches pharmacy records Medication Nonadherence Identified: No barriers noted The above information represents the best possible medication history: Yes Reconciliation completed? Yes All RN OCCUPATIONAL HEALTH medications addressed by LIP [id number] Medication List Adjustments: Medication Regimen Changes: Allopurinol - per patient list and pharmacy records Metoprolol - per patient list and pharmacy records Lantus - per patient list and pharmacy records Lispro - per patient list and pharmacy records Medications Added: Vitamin C - per patient list and pharmacy records Plavix - per patient list and pharmacy records Metformin - per patient list and pharmacy records Medications Removed: NA Patient is a 30 day readmission: No Time Spent Reviewing Patient's Medications: 30 minutes Allergies: ALLERGIES No Known Allergies Preferred Pharmacy: [facility] Current RN OCCUPATIONAL HEALTH Medications: Prior to Admission medications as of 02/05/20 1628 Medication Sig Last Dose Taking allopurinol (ZYLOPRIM) 100 mg tablet Take 100 mg by mouth once daily. Yes ascorbic acid, vitamin C, (VITAMIN C) 500 mg tablet Take 500 mg by mouth once daily. Yes clopidogrel (PLAVIX) 75 mg tablet Take 75 mg by mouth once daily. Yes ranolazine ER (RANEXA) 500 mg 12 hr tablet Take 1,000 mg by mouth twice daily. Yes MAGNESIUM CHLORIDE ORAL Take 250 mg by mouth once daily. Yes metoprolol tartrate, short acting, (LOPRESSOR) 100 mg tablet Take 100 mg by mouth twice daily. Yes insulin glargine (LANTUS SOLOSTAR, BASAGLAR KWIKPEN) 100 unit/mL (3 mL) Inject 50 Units subcutaneously twice daily. Yes insulin regular human (NOVOLIN R REGULAR U-100 INSULN) 100 unit/mL injection Inject 18 Units subcutaneously three times daily before meals. Plus sliding scale Yes metFORMIN (GLUCOPHAGE) 500 mg tablet Take 500 mg by mouth twice daily. Yes isosorbide mononitrate ER (IMDUR) 30 mg 24 hr tablet Take 30 mg by mouth once daily. Yes fluticasone (FLONASE ALLERGY RELIEF) 50 mcg/actuation nasal spray Use 1 Mutual in each nostril once daily. Yes nitroglycerin sublingual (NITROSTAT) 0.3 mg SL tablet Dissolve 0.3 mg under the tongue every 5 minutes as needed for Chest Pain. Yes empagliflozin (JARDIANCE) 25 mg tablet Take 12.5 mg by mouth daily with breakfast. Yes rosuvastatin calcium(CRESTOR 20 MG TAB) Take 20 mg by mouth once daily. Yes ASPIRIN 325 MG TAB Take one(1) tablet daily. Yes FOLIC ACID 1 MG TAB Take 1 mg by mouth once daily. Yes ezetimibe(ZETIA 10 MG TAB) Take one(1) tablet daily. Yes PEPCID 20 MG TAB Take 20 mg by mouth once daily. Yes MONOPRIL 10 MG TAB Take 10 mg by mouth once daily. Yes Esequiel Phillips, Pharmacist February 05, 2020 4:31 PM Bharati Kelly MD 02/06/2020 10:52 AM Signed CARDIOLOGY CONSULT NOTE REASON FOR CONSULT: Chest pain REQUESTING PHYSICIAN: Dr. Esparza HPI: Mr. Lange is a 64 year old male on whom Cardiology is consulted for chest pain. Medical history significant for -CAD with history of CABG in 1995 - SANDOVAL to LAD, SVG to Dx, SVG to IR, SVG to RCA, all grafts except SANDOVAL to LAD were occluded as per cardiac catheterization in 04/2019 -Hypertension -Hyperlipidemia -DM 2 -Former smoker -Prostate cancer status post surgery -Over weight -BMI 29 Patient initially presented to outside hospital ED with recurrent chest pain overnight. He mentions he had 5 episodes of chest pain within 6 hour time period and each one of those were relieved with one tablet of sublingual nitroglycerin. Troponin I at outside hospital was negative. EKG showed inferior Q waves which are old but new T-wave inversions in lead 1 and aVL. Creatinine was 1.3. He was transferred to [facility] for further management. Since arrival to [place], he has been chest pain-free. Labs significant for high sensitivity troponin 15. He was started on IV heparin for unstable angina. History states he had exertional angina with climbing stairs for a long time but this chest pain at rest was new. PAST MEDICAL HISTORY Diagnosis Date - DIABETES MELLITUS UNCOMP Diabetes mellitus - MIXED HYPERLIPIDEMIA Hyperlipidemia PAST SURGICAL HISTORY Procedure Laterality Date - CABG, ARTERY-VEIN, FOUR CABG, quadruple grafts - REMV PROSTATE, PERINEAL, RAD, LTD NODES 2007 - VASECTOMY SOCIAL HISTORY Social History Tobacco Use - Smoking status: Never Smoker Substance Use Topics - Alcohol use: No - Drug use: No FAMILY HISTORY Problem Relation Age of Onset - Diabetes Mother - Heart Father Family history was reviewed and non-contributory. ALLERGIES No Known Allergies MEDICATIONS: allopurinol (ZYLOPRIM) 100 mg tablet Take 100 mg by mouth once daily. ascorbic acid, vitamin C, (VITAMIN C) 500 mg tablet Take 500 mg by mouth once daily. clopidogrel (PLAVIX) 75 mg tablet Take 75 mg by mouth once daily. ranolazine ER (RANEXA) 500 mg 12 hr tablet Take 1,000 mg by mouth twice daily. MAGNESIUM CHLORIDE ORAL Take 250 mg by mouth once daily. metoprolol tartrate, short acting, (LOPRESSOR) 100 mg tablet Take 100 mg by mouth twice daily. insulin glargine (LANTUS SOLOSTAR, BASAGLAR KWIKPEN) 100 unit/mL (3 mL) Inject 50 Units subcutaneously twice daily. insulin regular human (NOVOLIN R REGULAR U-100 INSULN) 100 unit/mL injection Inject 18 Units subcutaneously three times daily before meals. Plus sliding scale metFORMIN (GLUCOPHAGE) 500 mg tablet Take 500 mg by mouth twice daily. isosorbide mononitrate ER (IMDUR) 30 mg 24 hr tablet Take 30 mg by mouth once daily. fluticasone (FLONASE ALLERGY RELIEF) 50 mcg/actuation nasal spray Use 1 Mutual in each nostril once daily. nitroglycerin sublingual (NITROSTAT) 0.3 mg SL tablet Dissolve 0.3 mg under the tongue every 5 minutes as needed for Chest Pain. empagliflozin (JARDIANCE) 25 mg tablet Take 12.5 mg by mouth daily with breakfast. rosuvastatin calcium(CRESTOR 20 MG TAB) Take 20 mg by mouth once daily. ASPIRIN 325 MG TAB Take one(1) tablet daily. FOLIC ACID 1 MG TAB Take 1 mg by mouth once daily. ezetimibe(ZETIA 10 MG TAB) Take one(1) tablet daily. PEPCID 20 MG TAB Take 20 mg by mouth once daily. MONOPRIL 10 MG TAB Take 10 mg by mouth once daily. REVIEW OF SYSTEMS: GENERAL: Negative for:Weight loss and Weight gain HEENT: Negative for:Nosebleeds RESPIRATORY: Negative for:Shortness of breath GASTROINTESTINAL: Negative for:Blood in stool MUSCULOSKELETAL: Negtive for: Muscle or joint pain, stiffness, Joint swelling SKIN: No rash HEMATOLOGICAL/LYMPHATIC : Negative for: Easy bruising and Easy bleeding CARDIOVASCULAR: As stated in HPI. 10 system review negative except as stated in HPI PHYSICAL EXAMINATION: BP 119/62 Pulse 68 Temp 36.8 ?C (98.2 ?F) (Oral) Resp 18 Ht 172.7 cm (5' 8) Wt 88.6 kg (195 lb 5.2 oz) SpO2 97% BMI 29.70 kg/m? General: Well appearing, appears stated age and in no acute distress. Psych: Normal Affect Eyes: No subconjunctival hemorrhage Skin: No rash, bruising Oropharynx: Mucous membranes normal Neck: no jugular venous distention, no carotid bruits. Lymph: No cervical lymphadenopathy Lungs: Clear to auscultation bilaterally, no wheezing or rhonchi. Heart: S1, S2 normal, no murmur Extremities: No peripheral edema Neuro: Grossly nonfocal LABS Recent Labs 02/06/20 0445 02/05/20 1435 WBC 9.68* -- 10.04* RBC 4.81 -- 4.96 HB 15.4 -- 16.3 HCT 45.0 -- 47.4 PLT 196 -- 193 PTSEC -- -- 10.9 APTT 42.3* < > 26.6 INR -- -- 1.01 < > = values in this interval not displayed. Triglyceride 222 02/06/2020 HDL Cholesterol 29 02/06/2020 LDL Calculated 49 02/06/2020 Cholesterol, Total 122 02/06/2020 Cardiac Workup: EKG at outside hospital: Sinus bradycardia Inferior Q waves - old New T-wave inversions in lead 1 and aVL Cardiac catheterization at [facility] on 04/18/2019 LM - Severe diffuse disease of the entire left main LAD - 100% proximally occluded LCX - 99% proximal LX stenosis with trickle antegrade flow RCA - 100% proximally occluded; dominant vessel SANDOVAL-LAD - Widely patent and tortuous; flow from SANDOVAL backfills a diagonal branch and Ramus Intermedius; distal LAD after the SANDOVAL provides L->R collaterals No angiographically significant stenosis of the LSCA; no hemodynamically significant gradient on pullback across the LSCA LVEDP ~5 mmHg; no hemodynamically significant gradient on pullback across the aortic valve Aortogram shows a Type II arch with no evident vein grafts Echo at [facility] 04/19/2019 1. The left ventricular chamber size is normal. Mild concentric left ventricular hypertrophy is observed. There are left ventricular segmental wall motion abnormalities present, as shown in the diagram below. ?There is normal global left ventricular systolic function. The quantitative left ventricular ejection fraction by biplane Menendez's method is 56%. 2. Right ventricular chamber size, wall thickness, and systolic function are within normal limits. 3. There is mild (1+/4+) mitral regurgitation present. 4. The estimated pulmonary artery systolic pressure is 18 mmHg plus RAP. IMPRESSION: -Unstable angina -CAD with history of CABG in 1995 - SANDOVAL to LAD, SVG to Dx, SVG to IR, SVG to RCA, all grafts except SANDOVAL to LAD were occluded as per cardiac catheterization in 04/2019 -Hypertension -Hyperlipidemia -DM 2 -Former smoker -Prostate cancer status post surgery -Over weight -BMI 29 PLAN: -Continue IV heparin per ACS protocol -Obtain echocardiogram -Recheck CBC and BMP, creatinine at outside hospital was 1.3 -Decrease aspirin dose to 81 mg daily, continue home dose of Plavix -Continue Lipitor and Zetia -Increase Imdur to 60 mg daily, will gradually titrate up -Continue metoprolol 100 mg twice daily -Continue home dose of Ranexa 1000 mg twice a day -Continue lisinopril 10 mg daily -Keep nothing by mouth past Saturday night -Plan for cardiac catheterization on Saturday (previous cath report from [facility] copied above, details in care everywhere) Cardiology will follow up. Please call back with questions or if clinical condition changes. Thank you for allowing me to participate in the care of this patient. Please don't hesitate to contact me if there are any questions regarding the care of our mutual patient. Bharati Kelly M.D. Cardiovascular Medicine Pager: [phone] February 06, 2020 Jose Lawrence MD 02/06/2020 11:42 AM Signed DEPARTMENT OF HOSPITAL MEDICINE PROGRESS NOTE SERVICE DATE: 02/06/2020 SERVICE TIME: 11:34 AM Hospital Medicine/Primary Attending: Jose Lawrence MD NIGHT AND WEEKEND COVERAGE: From 7am - 7pm, please call [phone] After 7pm, please call cross cover pager #[phone] Subjective INTERVAL HPI: Reports that he is comfortable now. Denied fever or chills. No chest pain. No nausea or vomiting. MEDICATIONS: Reviewed Objective PHYSICAL EXAM: BP 119/62 Pulse 68 Temp (Src) 98.2 (Oral) Resp 18 Ht 5' 8 (1.73m) Wt 195 lb 5.2 oz (88.6kg) SpO2 97% BMI 29.71 kg/(m2). O2 Therapy: Room Air Physical Exam Performed GENERAL: Alert, no distress, cooperative SKIN: Skin color, texture, turgor normal. No rashes or lesions. HEAD/SINUSES: No significant findings EYES: PERRLA, EOMI EARS: External ears normal, canals clear NOSE: Nares normal. Septum midline. OROPHARYNX: Lips, mucosa, and tongue normal. Teeth and gums normal. Oropharynx normal. NECK: No jugulovenous distention, No carotid bruits, Carotid pulse normal contour, Supple LUNGS: Lungs clear to auscultation, Good diaphragmatic excursion CARDIAC: Normal S1 and S2; no rubs, murmurs, or gallops ABDOMEN: Abdomen soft, non-tender, BS normal, No masses or organomegaly EXTREMITIES: Extremities normal, no deformities, edema, clubbing or skin discoloration. Good capillary refill., No ulcers NEURO: Grossly intact PULSES: 2+ radial, 2+ carotid Lines, Drains, and Airways Line Peripheral 02/05/20 Assessment Right Antecubital 20 Gauge 1 day DATA: Diagnostic tests reviewed for today's visit: Assessment/Plan 1. Chest pain/unstable angina: Continue IV heparin drip Appreciate cardiology input. Tentative cardiac cath on saturday 2. CAD (coronary artery disease): Risk factor modifications 3. Diabetes mellitus type 2: Continue home medication Diabetic diet accucheck ACHS 4. Hypertension Essential: On home meds Resolved Problems: * No resolved hospital problems. * Medication and Non-Pharmacologic VTE Prophylaxis/Anticoagula nts Anticoagulant AND Antiplatelet Medications (From admission, onward) Start Dose Route Frequency Ordered Stop 02/05/20 1530 clopidogrel 75 mg tab(s) (PLAVIX) 75 mg ORAL DAILY 02/05/20 1422 -- 02/05/20 1422 heparin iv infusion (LOW DOSE ACS/NOMOGRAM) 25,000 units in NaCl 0.45% 250 mL PREMIX (Heparin Infusion + Rate Change Bolus) 0-30 mL/hr 0-3,000 Units/hr INTRAVENOUS CONTINUOUS 02/05/20 1422 -- 02/05/20 1430 vte non-pharmacologic prophylaxis - none indicated (mn,ct) 02/05/20 1430 vte current anticoag therapy (mn,ct) 02/05/20 1430 activity - mobilize patient (mn,ct) VTE Prophylaxis: VTE prophylaxis appropriate Disposition: Home Plan of care discussed with: Patient SIGNATURE: Jose Lawrence MD PATIENT NAME: Gustavo Lange DATE: February 06, 2020 TIME: 11:34 AM PAGER/CONTACT #: [phone] Jose Lawrence MD 02/07/2020 12:29 PM Signed DEPARTMENT OF [facility] MEDICINE PROGRESS NOTE SERVICE DATE: 02/07/2020 SERVICE TIME: 12:20 PM Hospital Medicine/Primary Attending: Jose Lawrence MD NIGHT AND WEEKEND COVERAGE: From 7am - 7pm, please call [phone] After 7pm, please call cross cover pager #[phone] Subjective INTERVAL HPI: Reports that he's doing okay. No fever or chills. No chest pain. MEDICATIONS: Reviewed Objective PHYSICAL EXAM: BP 122/57 Pulse 67 Temp (Src) 97.9 (Oral) Resp 18 Ht 5' 8 (1.73m) Wt 193 lb 14.4 oz (88.0kg) SpO2 99% BMI 29.49 kg/(m2). O2 Therapy: Room Air Physical Exam Performed GENERAL: Alert, no distress, cooperative SKIN: Skin color, texture, turgor normal. No rashes or lesions. HEAD/SINUSES: No significant findings EYES: PERRLA, EOMI EARS: External ears normal, canals clear NOSE: Nares normal. Septum midline. OROPHARYNX: Lips, mucosa, and tongue normal. Teeth and gums normal. Oropharynx normal. NECK: No jugulovenous distention, No carotid bruits, Carotid pulse normal contour, Supple LUNGS: Lungs clear to auscultation, Good diaphragmatic excursion CARDIAC: Normal S1 and S2; no rubs, murmurs, or gallops ABDOMEN: Abdomen soft, non-tender, BS normal, No masses or organomegaly EXTREMITIES: no edema, good pulses Lines, Drains, and Airways Line Peripheral 02/05/20 Assessment Right Antecubital 20 Gauge 2 days DATA: Diagnostic tests reviewed for today's visit: Assessment/Plan 1. Chest pain/Unstable Angina: Continue heparin drip Cardiology following 2. CAD (coronary artery disease) POA: Unknown Lokesh factor modification. 3. Diabetes (HCC) POA: Unknown Please hold night time insulin if patient is NPO after midnight Continue accucheck ACHS 4. Hypertension Essential: Continue home meds. Medication and Non-Pharmacologic VTE Prophylaxis/Anticoagula nts Anticoagulant AND Antiplatelet Medications (From admission, onward) Start Dose Route Frequency Ordered Stop 02/05/20 1530 clopidogrel 75 mg tab(s) (PLAVIX) 75 mg ORAL DAILY 02/05/20 1422 -- 02/05/20 1422 heparin iv infusion (LOW DOSE ACS/NOMOGRAM) 25,000 units in NaCl 0.45% 250 mL PREMIX (Heparin Infusion + Rate Change Bolus) 0-30 mL/hr 0-3,000 Units/hr INTRAVENOUS CONTINUOUS 02/05/20 1422 -- 02/05/20 1430 vte non-pharmacologic prophylaxis - none indicated (mn,oh) 02/05/20 1430 vte current anticoag therapy (mn,ct) 02/05/20 1430 activity - mobilize patient ([place]) VTE Prophylaxis: VTE prophylaxis appropriate Disposition: Home Plan of care discussed with: Patient SIGNATURE: Jose Lawrence MD PATIENT NAME: Gustavo Lange DATE: February 07, 2020 TIME: 12:20 PM PAGER/CONTACT #: [phone] Saloni Noriega RN, RN 02/07/2020 2:15 PM Addendum Pt just advised this RN that at 0920 this AM he felt some chest pain and pressure. Pt had his own nitro and states he took one nitro tab which did resolve the pain/pressure. When asked why he didn't contact nursing staff at that time he stated he just didn't think to and since the nitro worked he was fine Pg'd cardiology, awaiting return phone call at this time. Will continue to monitor. 1415- Dr Kelly called back. Advised him of pt chest pain. No new orders at this time. Previous Version Chaplain Raul, Housekeeping Super[employer] 02/07/2020 7:01 PM Signed SPIRITUALCARE Spiritual Care Visit- Brief Note Name: Gustavo Lange Date: February 07, 2020 Notes: Pre-surgery Patient Nothing needed tonight made Spiritual Care available. [employer] Signature: Chaplain Raul To contact the Spiritual Care Department: Please call [phone] or Page the On-Call [employer] at pager [phone] Thank you for the opportunity to be of service. This is an electronically created document. IF PRINTED, PLEASE DO NOT REMOVE FROM THE CHART OR MODIFY PRINTED COPY. Normal [facility] Hemogramon 02-05-2020 Erythrocyte distribution width (RBC) [Ratio] 13.7 % Normal 11.6-14.4 [facility] Comment on above: Performed By: #### C BC1 #### [place] [address] Hematocrit (Bld) [Volume fraction] 47.4 % Normal 40.1-51.0 [facility] Comment on above: Performed By: #### C BC1 #### [place] [address] Hemoglobin (Bld) [Mass/Vol] 16.3 g/dL Normal 13.7-17.5 [facility] Comment on above: Performed By: #### C BC1 #### [place] [address] MCH (RBC) [Entitic mass] 32.9 pg High 25.7-32.2 [facility] Comment on above: Performed By: #### C BC1 #### [place] [address] MCHC (RBC) [Mass/Vol] 34.4 % Normal 32.3-36.5 [facility] Comment on above: Performed By: #### C BC1 #### [place] [address] MCV (RBC) [Entitic vol] 95.6 fL Normal 83.2-95.6 [facility] Comment on above: Performed By: #### C BC1 #### [facility] [address], [place] [address] Platelet mean volume (Bld) [Entitic vol] 10.8 fL Normal 8.7-12.0 [facility] Comment on above: Performed By: #### C BC1 #### [facility] [address], [place] [address] Platelets (Bld) [#/Vol] 193 thou/cmm Normal 141-365 [facility] Comment on above: Performed By: #### C BC1 #### [facility] [address], [place] [address] RBC (Bld) [#/Vol] 4.96 mil/cmm Normal 4.63-6.08 [facility] Comment on above: Performed By: #### C BC1 #### [facility] [address] [place], [place] [address] RDW SD 48.4 fl High 36.1-45.8 [facility] Comment on above: Performed By: #### C BC1 #### [facility] [address], [place] [address] WBC (Bld) [#/Vol] 10.04 thou/cmm High 4.23-9.07 [facility] Comment on above: Performed By: #### C BC1 #### [facility] [address], [place] [address] Hgb A1con 02-05-2020 HbA1c (Bld) [Mass fraction] 8.9 % High 4.0-5.6 [facility] Comment on above: Result Comment: Amer [place] Diabetes Association guidelines indicate that the patients with HgA1c in the range 5.7 ? 6.4% are at increased risk for development of diabetes, and intervention by lifestyle modification may be beneficial. HgA1c greater or equal to 6.5% is considered diagnostic of diabetes. Performed By: #### H A1C #### [facility] [address], [place] [address] HbA1c (Bld) [Mass fraction] 209 mg/dL Normal [facility] Comment on above: Performed By: #### H A1C #### [facility] [address] [place] [address] PLAN OF CAREon 02-05-2020 PLAN OF CARE HNO ID: [id number] Author: Esequiel Phillips (Pharmacist) Service: Pharmacy Author Type: Pharmacist Type: Plan of Care Filed: 02/05/2020 4:33 PM Note Text: MEDICATION HISTORY AND MEDICATION RECONCILIATION Patient Name:Mir Lange : 1955 Source of history:Patient who presents list that matches pharmacy records Medication Nonadherence Identified: No barriers noted The above information represents the best possible medication history: Yes Reconciliation completed? Yes All RN OCCUPATIONAL HEALTH medications addressed by LIP [id number] Medication List Adjustments: Medication Regimen Changes: Allopurinol - per patient list and pharmacy records Metoprolol - per patient list and pharmacy records Lantus - per patient list and pharmacy records Lispro - per patient list and pharmacy records Medications Added: Vitamin C - per patient list and pharmacy records Plavix - per patient list and pharmacy records Metformin - per patient list and pharmacy records Medications Removed: NA Patient is a 30 day readmission: No Time Spent Reviewing Patient's Medications: 30 minutes Allergies: ALLERGIES No Known Allergies Preferred Pharmacy: [facility] Current RN OCCUPATIONAL HEALTH Medications: Prior to Admission medications as of 02/05/20 1628 Medication Sig Last Dose Taking allopurinol (ZYLOPRIM) 100 mg tablet Take 100 mg by mouth once daily. Yes ascorbic acid, vitamin C, (VITAMIN C) 500 mg tablet Take 500 mg by mouth once daily. Yes clopidogrel (PLAVIX) 75 mg tablet Take 75 mg by mouth once daily. Yes ranolazine ER (RANEXA) 500 mg 12 hr tablet Take 1,000 mg by mouth twice daily. Yes MAGNESIUM CHLORIDE ORAL Take 250 mg by mouth once daily. Yes metoprolol tartrate, short acting, (LOPRESSOR) 100 mg tablet Take 100 mg by mouth twice daily. Yes insulin glargine (LANTUS SOLOSTAR, BASAGLAR KWIKPEN) 100 unit/mL (3 mL) Inject 50 Units subcutaneously twice daily. Yes insulin regular human (NOVOLIN R REGULAR U-100 INSULN) 100 unit/mL injection Inject 18 Units subcutaneously three times daily before meals. Plus sliding scale Yes metFORMIN (GLUCOPHAGE) 500 mg tablet Take 500 mg by mouth twice daily. Yes isosorbide mononitrate ER (IMDUR) 30 mg 24 hr tablet Take 30 mg by mouth once daily. Yes fluticasone (FLONASE ALLERGY RELIEF) 50 mcg/actuation nasal spray Use 1 Mutual in each nostril once daily. Yes nitroglycerin sublingual (NITROSTAT) 0.3 mg SL tablet Dissolve 0.3 mg under the tongue every 5 minutes as needed for Chest Pain. Yes empagliflozin (JARDIANCE) 25 mg tablet Take 12.5 mg by mouth daily with breakfast. Yes rosuvastatin calcium(CRESTOR 20 MG TAB) Take 20 mg by mouth once daily. Yes ASPIRIN 325 MG TAB Take one(1) tablet daily. Yes FOLIC ACID 1 MG TAB Take 1 mg by mouth once daily. Yes ezetimibe(ZETIA 10 MG TAB) Take one(1) tablet daily. Yes PEPCID 20 MG TAB Take 20 mg by mouth once daily. Yes MONOPRIL 10 MG TAB Take 10 mg by mouth once daily. Yes Esequiel Phillips, Pharmacist February 05, 2020 4:31 PM Normal [facility] PLAN OF CARE HNO ID: [id number] Author: Elda Esparza Service: Hospital Medicine Author Type: Physician Type: Plan of Care Filed: 02/05/2020 2:20 PM Note Text: Patient independently seen and examined. Agree with DERRICK BOAT LEVER OPERATOR note. Please see additional documentation as below for further details. 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 Then an hour later another similar episode, and every hour thereafter for the next 3 hours. Last episode of chest pain at approximately 7AM and none since. He presented to [facility] for eval but was transferred to [facility] for further work-up and management. I have discussed case with cardiology who recommends initiating heparin gtt and will follow with patient. Trop I at [place] >0.01, will repeat HS trop here. Cardiology anticipating LHC and echo for w/u. Physical exam: Constitutional - Alert and oriented, no acute distress Resp - CTA b/l, no wheezes, crackles or rales, no labored breathing CVS- RRR. No murmur, gallop or rub, pulse 2+ GI - NTND, bowel sounds throughout, no mass palpable MULTIPLE EFFECT EVAPORATOR OPERATOR- CN II-XII grossly intact, no focal motor or sensory deficits noted, speech normal Psych- A ANDO x 3, mood normal, normal and nonpressured speech Skin- Normal tugor, no ulcers or rashes, old CABG scar midsternal A/P: Unstable angina with severe underlying known cardiac disease -Consult cardiology -start hep gtt -trend trops/EKG -nitro PRN -Continue home meds HTN, c/w home meds HLD c/w home meds IDDM, SSI/accuchecks COVID testing not done at [place], will check here for asymptomatic r/o Normal [facility] Protimeon 02-05-2020 INR Coag (PPP) [Relative time] 1.01 {INR} Normal 0.90-1.30 [facility] Comment on above: Result Comment: Monica min K Antagonist (VKA) Therapeutic Range: INR 2 to 3 (Target INR of 2.5) Note: For patients treated with VKA drugs, such as warfarin, the [place] [employer] 2012 Guideline recommends a therapeutic INR range of 2 to 3 (target INR of 2.5). This recommendation includes high-risk patients with antiphospholipid syndrome with previous arterial or venous thromboembolism, current-generation mechanical or bioprosthetic aortic heart valve replacement. Note: Patients with mechanical aortic valve replacement and additional risk factors for thromboembolic events (atrial fibrillation, previous thromboembolism, LV dysfunction, hypercoagulable conditions) or an older generation mechanical AVR (i.e., ball in-Cage) or any mechanical MVR should have a INR therapeutic range of 2.5 to 3.5 target INR of 3). Lizbet GH, et al. Chest 2012; 141:7S-47S Sonam RA et al. JAC 2017; 70: 252-289 Performed By: #### P T #### [facility] [address] [place] [address] PT Coag (PPP) [Time] 10.9 s Normal 9.7-13.0 [facility] Comment on above: Performed By: #### P T #### [facility] [address] [place] [id number] TSHon 02-05-2020 TSH Qn 1.200 uIU/mL Normal 0.270-4.200 [facility] Comment on above: Result Comment: Preg mahendra: 1st trimester:(9-12 weeks):0.180-2.900 uIU/mL 2nd trimester: 0.110-3.980 uIU/mL 3rd trimester: 0.480-4.710 uIU/mL Patients taking a biotin dose of up to 5 mg/day should refrain from taking biotin for 4 hours prior to sample collection. Patients taking a biotin dose of 5 to 10 mg/day should refrain from taking biotin for 8 hours prior to sample collection. Patients taking a biotin dose > 10 mg/day should consult with their physician or the laboratory prior to having a sample taken. Clinicians should consider biotin interference as a source of error, when clinically suspicious of the laboratory result. Performed By: #### T SH3 #### [place] [address] Troponin T, High Sens.on Troponin T, High Sens. 15 ng/L High 0-11 [facility] Comment on above: Result Comment: Sarah ents taking a biotin dose of up to 5 mg/day should refrain from taking biotin for 4 hours prior to sample collection. Patients taking a biotin dose of 5 to 10 mg/day should refrain from taking biotin for 8 hours prior to sample collection. Patients taking a biotin dose > 10 mg/day should consult with their physician or the laboratory prior to having a sample taken. Clinicians should consider biotin interference as a source of error, when clinically suspicious of the laboratory result. Performed By: #### T ROPT #### [place] [address] Office Visiton 06-19-2017 Dietary management education, guidance, and counseling (procedure) yes Invalid Interpretation Code [employer] Phone: [phone] Documentation of current medications (procedure) Done Invalid Interpretation Code [employer] Phone: [phone] Fall risk assessment No Invalid Interpretation Code [employer] Phone: [phone] Tobacco use CPHS Never smoker Invalid Interpretation Code [employer] Phone: [phone] Clinical Lists Update: Prelo dental billing specialist 12-14-2016 Left ventricular Ejection fraction 45 % Invalid Interpretation Code [employer] Work Phone: [phone] Lab Report: Lipid Profileon 10-19-2016 Cholesterol 139 mg/dL Invalid Interpretation Code 200 [employer] Phone: [phone] HDL Cholesterol 36 mg/dL Low [employer] Phone: [phone] LDL Cholesterol 61 mg/dL Invalid Interpretation Code 0-130 [employer] Phone: [phone] Triglyceride 208 mg/dL High [employer] Phone: [phone] very low density lipoproteins 42 mg/dL High 5-40 [employer] Phone: [phone] Lab Report: Liver Profileon 10-19-2016 Alanine aminotransferase (ALT) 38 U/L Invalid Interpretation Code 12-78 [employer] Phone: [phone] Albumin 3.5 g/dL Invalid Interpretation Code 3.4-5.0 [employer] Phone: [phone] Alkaline phosphatase (ALP) 63 U/L Invalid Interpretation Code 45-117 [employer] Phone: [phone] Aspartate aminotransferase (AST) 26 U/L Invalid Interpretation Code 15-37 [employer] Phone: [phone] Bilirubin (direct) 0.15 mg/dL Invalid Interpretation Code 0.00-0.30 [employer] Phone: [phone] Bilirubin (total) 0.50 mg/dL Invalid Interpretation Code 0.20-1.00 [employer] Work Phone: [phone] Globulin 3.6 g/dL High 2.3-3.5 [employer] Work Phone: [phone] Protein 7.1 g/dL Invalid Interpretation Code 6.4-8.2 [employer] Work Phone: [phone] Lab Report: Basic Metabolic Profile (BMP)on 04-25-2015 Anion gap 8 mmol/L Invalid Interpretation Code 5-15 [employer] Work Phone: [phone] BUN/Creatinine Ratio 19.8 RATIO Invalid Interpretation Code 10-20 [employer] Work Phone: [phone] Calcium 8.6 mg/dL Invalid Interpretation Code 8.5-10.1 [employer] Work Phone: [phone] Chloride 104 mmol/L Invalid Interpretation Code 98-107 [employer] Work Phone: [phone] CO2 27.0 mmol/L Invalid Interpretation Code 21.0-32.0 [employer] Work Phone: [phone] Creatinine 1.26 mg/dL Invalid Interpretation Code 0.70-1.30 [employer] Work Phone: [phone] eGFR (non-black) 75 mL/min/{1.73_m2} Invalid Interpretation Code >60 [employer] Phone: [phone] eGFR (non-black) 62 mL/min/{1.73_m2} Invalid Interpretation Code >60 [employer] Work Phone: [phone] Glucose mass conc 261 mg/dL High 70-110 [employer] Work Phone: [phone] Potassium molar conc 4.3 mmol/L Invalid Interpretation Code 3.5-5.1 [employer] Work Phone: [phone] Sodium 139 mmol/L Invalid Interpretation Code 136-145 [employer] Phone: [phone] Urea nitrogen 25 mg/dL High 7-18 [employer] Work Phone: [phone] Lab Report: Hemoglobin A1con 04-25-2015 Hemoglobin A1c/Hemoglobin.total mass fraction (Bld) 8.4 % High 4.2-6.3 [employer] Work Phone: [phone] Office Visit: MMMon 08-18-19 15 Alcoholism counseling (procedure) no Invalid Interpretation Code [employer] Work Phone: [phone] cardiac risk group C Invalid Interpretation Code [employer] Work Phone: [phone] General cardiovascular disease 10Y risk [#] [place] N/A Invalid Interpretation Code [employer] Work Phone: [phone] Tobacco smoking status NHIS Never Invalid Interpretation Code [employer] Work Phone: [phone] Lab Report: LIVERon 04-10-20 14 ALK 55 U/L Normal 45-117 [employer] Work Phone: [phone] Replaced Document: Amrita Mckinnonon 02-17-2014 EKG QRS axis -2 deg Invalid Interpretation Code [employer] Work Phone: [phone] Interpretation Marked sinus 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 ABNORMAL Invalid Interpretation Code [employer] Work Phone: [phone] P [place] -1 deg Invalid Interpretation Code [employer] Work Phone: [phone] SD Interval 196 ms Invalid Interpretation Code [employer] Work Phone: [phone] Pulse (Heart Rate) 49 /min Invalid Interpretation Code [employer] Work Phone: [phone] QRS Duration 100 ms Invalid Interpretation Code [employer] Work Phone: [phone] QT Interval new path ms Invalid Interpretation Code [employer] Work Phone: [phone] T [place] -1 deg Invalid Interpretation Code [employer] Work Phone: [phone] Lab Report: CBCon 05-18-2013 Erythrocytes (RBC) 4.78 M/MM2 Invalid Interpretation Code 4.6-6.2 [employer] Phone: [phone] Hematocrit (HCT) 44.7 % Invalid Interpretation Code 40-54 [employer] Work Phone: [phone] Hemoglobin mass conc (Bld) 15.2 g/dL Invalid Interpretation Code 13.0-16.5 [employer] Work Phone: [phone] Platelets 188 10*3/mm3 Invalid Interpretation Code 150-450 [employer] Work Phone: [phone] WBC (Leukocytes) 6.3 10*3/uL Invalid Interpretation Code 4.4-11.0 [employer] Work Phone: [phone] Lab Report: PTon 05-18-2013 INR Coag RelTime (PPP) 1.0 {INR} Invalid Interpretation Code [employer] Phone: [phone] PTP 12.8 SECONDS Invalid Interpretation Code 11.9-14.4 [employer] Work Phone: [phone] Replaced Document: Amrita Shoemaker CG Observationson 05-06-2013 Pulse (Heart Rate) 408 ms Invalid Interpretation Code [facility] Work Phone: [phone] Lab Report: TSHon 04-21-2013 Thyroid stimulating hormone (TSH) 1.77 u[iU]/mL Normal 0.358-3.74 [facility] Work Phone: [phone] Lab Report: MGon 10-09-2011 Magnesium 1.9 mg/dL Normal 1.5-2.2 [facility] Work Phone: [phone] Lab Report: T4on 10-09-2011 Thyroxine (T4) 6.6 ug/dL Normal 4.5-12.1 [facility] Work Phone: [phone] Vital Signs Date Time Vital Sign Value Performing Clinician Faci inez 07-23-2023 08:32-0500 Body height 172.[address] Johann Bertrand Work Phone: [facility] 07-23-2023 08:32-0500 Body mass index (BMI) [Ratio] 24.1 kg/m2 Dr. Johann Bertrand Work Phone: [facility] 07-23-2023 08:32-0500 Body weight 72.[address] Johann Bertrand Work Phone: [facility] 07-23-2023 08:32-0500 Diastolic blood pressure 64 mm[Hg] Dr. Johann Bertrand Work Phone: [facility] 07-23-2023 08:32-0500 Heart rate 73 /min Dr. Johann Bertrand Work Phone: [facility] 07-23-2023 08:32-0500 Respiratory rate 16 /min Dr. Johann Bertrand Work Phone: [facility] 07-23-2023 08:32-0500 Systolic blood pressure 99 mm[Hg] Dr. Johann Bertrand Work Phone: [facility] 01-21-2023 11:05-0400 Body height 172.[address] Johann Bertrand Work Phone: [facility] 01-21-2023 11:05-0400 Body mass index (BMI) [Ratio] 24.5 kg/m2 Dr. Johann Bertrand Work Phone: [facility] 01-21-2023 11:05-0400 Body weight 73.[address] Johann Bertrand Work Phone: [facility] 01-21-2023 11:05-0400 Diastolic blood pressure 62 mm[Hg] Dr. Johann Bertrand Work Phone: [facility] 01-21-2023 11:05-0400 Heart rate 72 /min Dr. Johann Bertrand Work Phone: [facility] 01-21-2023 11:05-0400 Respiratory rate 16 /min Dr. Johann Bertrand Work Phone: [facility] 01-21-2023 11:05-0400 Systolic blood pressure 103 mm[Hg] Dr. Johann Bertrand Work Phone: [facility] 05-03-2022 15:40-0400 Diastolic blood pressure 71 mm[Hg] Dr. Johann Bertrand Work Phone: [facility] Work Phone: 05-03-2022 15:40-0400 Heart rate 71 /min Dr. Johann Bertrand Work Phone: [facility] Work Phone: 05-03-2022 15:40-0400 Respiratory rate 16 /min Dr. Johann Bertrand Work Phone: [facility] Work Phone: 05-03-2022 15:40-0400 Systolic blood pressure 128 mm[Hg] Dr. Johann Bertrand Work Phone: [facility] Work Phone: 05-03-2022 15:23-0400 Body height 172.[address] Johann Bertrand Work Phone: [facility] Work Phone: 05-03-2022 15:23-0400 Body mass index (BMI) [Ratio] 23.7 kg/m2 Dr. Johann Bertrand Work Phone: [facility] Work Phone: 05-03-2022 15:23-0400 Body weight 70.[address] Johann Bertrand Work Phone: [facility] Work Phone: 02-10-2022 10:54-0400 Respiratory rate 18 /min Dr. Johann Bertrand Work Phone: [facility] Work Phone: 02-10-2022 09:37-0400 Body height 172.[address] Johann Bertrand Work Phone: [facility] Work Phone: 02-10-2022 09:37-0400 Body mass index (BMI) [Ratio] 23.6 kg/m2 Dr. Johann Bertrand Work Phone: [facility] Work Phone: 02-10-2022 09:37-0400 Body temperature 97.3 [degF] Dr. Johann Bertrand Work Phone: [facility] Work Phone: 02-10-2022 09:37-0400 Body weight 70.[address] Johann Bertrand Work Phone: [facility] Work Phone: 02-10-2022 09:37-0400 Diastolic blood pressure 76 mm[Hg] Dr. Johann Bertrand Work Phone: [facility] Work Phone: 02-10-2022 09:37-0400 Heart rate 76 /min Dr. Johann Bertrand Work Phone: [facility] Work Phone: 02-10-2022 09:37-0400 SaO2% (BldA) [Mass fraction] 100 % Dr. Johann Bertrand Work Phone: [facility] Work Phone: 02-10-2022 09:37-0400 Systolic blood pressure 125 mm[Hg] Dr. Johann Bertrand Work Phone: [facility] Work Phone: 12-20-2021 08:57-0400 Body mass index (BMI) [Ratio] 24.9 kg/m2 Dr. Johann Bertrand Work Phone: [facility] Work Phone: 12-20-2021 08:57-0400 Body weight 74.[address] Johann Bertrand Work Phone: [facility] Work Phone: 12-20-2021 08:57-0400 Diastolic blood pressure 64 mm[Hg] Dr. Johann Bertrand Work Phone: [facility] Work Phone: 12-20-2021 08:57-0400 Heart rate 75 /min Dr. Johann Bertrand Work Phone: [facility] Work Phone: 12-20-2021 08:57-0400 Respiratory rate 18 /min Dr. Johann Bertrand Work Phone: [facility] Work Phone: 12-20-2021 08:57-0400 SaO2% (BldA) [Mass fraction] 99 % Dr. Johann Bertrand Work Phone: [facility] Work Phone: 12-20-2021 08:57-0400 Systolic blood pressure 106 mm[Hg] Dr. Johann Bertrand Work Phone: [facility] Work Phone: 12-20-2021 08:57-0400 Body height 172.[address] Johann Bertrand Work Phone: [facility] Work Phone: 12-20-2021 08:57-0400 Body mass index (BMI) [Ratio] 24.9 kg/m2 Dr. Johann Bertrand Work Phone: [facility] Work Phone: 12-20-2021 08:57-0400 Body weight 74.[address] Johann Bertrand Work Phone: [facility] Work Phone: 12-20-2021 08:57-0400 Diastolic blood pressure 64 mm[Hg] Dr. Johann Bertrand Work Phone: [facility] Work Phone: 12-20-2021 08:57-0400 Heart rate 75 /min Dr. Johann Bertrand Work Phone: [facility] Work Phone: 12-20-2021 08:57-0400 Respiratory rate 18 /min Dr. Johann Bertrand Work Phone: [facility] Work Phone: 12-20-2021 08:57-0400 SaO2% (BldA) [Mass fraction] 99 % Dr. Johann Bertrand Work Phone: [facility] Work Phone: 12-20-2021 08:57-0400 Systolic blood pressure 106 mm[Hg] Dr. Johann Bertrand Work Phone: [facility] Work Phone: 06-19-2017 15:58-0500 BMI (Body Mass Index) 30.71 kg/m2 [facility] Work Phone: 06-19-2017 15:58-0500 BP Diastolic 78 mm[Hg] [facility] Work Phone: 06-19-2017 15:58-0500 BP Systolic 132 mm[Hg] [facility] Work Phone: 06-19-2017 15:58-0500 Height 175.26 cm [facility] Work Phone: 06-19-2017 15:58-0500 Pulse (Heart Rate) 64 /min [facility] Work Phone: 06-19-2017 15:58-0500 Respiratory Rate 18 /min [facility]ille [facility] Work Phone: 06-19-2017 15:58-0500 Weight 94.35 kg Neville Casey [facility] Work Phone: 03-19-2016 16:07-0400 BSA (Body Surface Area) 2.1 m2 [facility] Work Phone: Encounters Encounter Date Encounter Type Care Provider Facility Start: 01-18-2025 ambulatory Gonsalo Bertrand Faci lity:[facility] Start: 01-06-2025 End: 01-06-2025 ambulatory Gonsalo Bertrand Facility:[facility] Start: 01-15-2024 End: 01-15-2024 ambulatory Gonsalo Bertrand Facility:[facility] Start: 08-22-2023 End: 08-22-[address] Johann Bertrand Work Phone: [facility] Work Phone: Start: 08-22-2023 End: 08-22-[address] Johann Bertrand Work Phone: [facility]-Cardiovascula r Services Work Phone: Start: 08-21-2023 End: 08-21-[address] Johann Bertrand Work Phone: [facility] Work Phone: Start: 08-21-2023 End: 08-21-[address] Johann Bertrand Work Phone: [facility] Start: 07-23-2023 End: 07-23-[address] Johann Bertrand Work Phone: [facility] Work Phone: Start: 03-29-2023 End: 03-29-[address] Johann Bertrand Work Phone: [facility] Work Phone: Start: 03-29-2023 End: 03-29-[address] Johann Bertrand Work Phone: [facility]-Sleep Lab Work Phone: Start: 02-11-2023 End: 02-11-[address] Johann Bertrand Work Phone: [facility] Work Phone: Start: 02-11-2023 End: 02-11-[address] Johann Bertrand Work Phone: [facility]-Laboratory, Specimen Work Phone: Start: 01-21-2023 End: 01-21-[address] Johann Bertrand Work Phone: [facility] Work Phone: Start: 05-16-2022 End: 05-16-[address] Johann Bertrand Work Phone: [facility] Work Phone: Start: 05-16-2022 End: 05-16-[address] Johann Bertrand Work Phone: [facility] Start: 05-03-2022 End: 05-03-[address] [facility] Start: 02-10-2022 End: 02-10-2022 Emergency department patient visit Dr. Johann Bertrand Work Phone: [facility]-Emergency Department Start: 12-25-2021 End: 12-25-[address] Johann Bertrand Work Phone: [facility] Start: 12-20-2021 End: 12-20-[address] Johann Bertrand Work Phone: [facility] Start: 11-08-2021 End: 11-08-2021 Patient encounter procedure [facility]-Sleep Lab Start: 09-11-2021 End: 09-11-2021 Patient encounter procedure [facility]Sleep [facility] Start: 08-28-2021 End: 08-28-2021 [facility] Date Procedure Procedure Detail Performing Clinician Start: 02-11-[address] Johann lopez Work Phone: Start: 05-16-2022 Radiologic examination of knee Dr. Johann Bertrand Work Phone: Start: 02-10-2022 Plain X-ray of shoulder Dr. Johann caballero Work Phone: Start: 06-19-2017 End: 06-19-2017 Follow [...] Serum or Plasma Bobby Potter MD Start: 01-04-1996 History of coronary artery bypass grafting History of coronary artery bypass surgery Plan of Treatment Date Care Activity Detail Author Start: 03-24-2018 End: 03-24-2018 Appointment Appointment [facility] Work Phone: Start: 06-19-2017 End: 06-19-2017 Appointment Appointment [employer] [facility] Work Phone: Start: 06-19-2017 End: 06-19-2017 Follow Up Appt 6 months Follow Up Appt 6 months [facility] Work Phone: Start: 06-19-2017 End: 06-19-2017 PFM PFM [facility] Work Phone: Start: 04-24-2017 End: 10-25-2016 *Hepatic Function Panel *Hepatic Function Panel [facility] Work Phone: Start: 04-24-2017 End: 10-25-2016 Lipid panel [AGGREGATE] *Lipid Profile CC PCP [facility] Work Phone: Start: 12-19-2016 End: 12-19-2016 Follow Up Appt 6 months Follow Up Appt 6 months [place] [facility] Work Phone: Start: 12-19-2016 End: 12-19-2016 PFM PFM [facility] Work Phone: Start: 10-22-2016 End: 10-22-2016 *Hepatic Function Panel *Hepatic Function Panel [place] [facility] Work Phone: Start: 10-22-2016 End: 10-22-2016 Lipid panel [AGGREGATE] *Lipid Profile CC PCP [facility] Work Phone: Start: 04-05-2016 End: 04-23-2016 *Hepatic Function Panel *Hepatic Function Panel [facility] Work Phone: Start: 04-05-2016 End: 04-23-2016 Lipid panel [AGGREGATE] *Lipid Profile CC PCP [facility] Work Phone: Start: 03-19-2016 End: 03-19-2016 Follow Up Appt 9 months Follow Up Appt 9 months [facility] Work Phone: Start: 03-19-2016 End: 03-19-2016 PF PFM [facility] Work Phone: Start: 10-25-2015 End: 10-31-2015 *Hepatic Function Panel *Hepatic Function Panel [facility] Work Phone: Start: 10-25-2015 End: 10-31-2015 Lipid panel [AGGREGATE] *Lipid Profile CC PCP [facility] Work Phone: Start: 09-12-2015 End: 09-12-2015 Follow Up Appt 6 months Follow Up Appt 6 months [place] [facility] Work Phone: Start: 09-12-2015 End: 09-12-2015 PFM PFM [facility] Work Phone: Start: 04-11-2015 End: 04-27-2015 *Hepatic Function Panel *Hepatic Function Panel [facility] Work Phone: Start: 04-11-2015 End: 04-27-2015 Lipid panel [AGGREGATE] *Lipid Profile CC PCP [facility] Work Phone: Start: 03-16-2015 End: 03-17-2015 Follow Up Appt 6 months Follow Up Appt 6 months [facility] Work Phone: Start: 03-16-2015 End: 03-17-2015 MMM MMM [facility] Work Phone: Start: 10-08-2014 End: 10-08-2014 *Hepatic Function Panel *Hepatic Function Panel [facility] Work Phone: Start: 10-08-2014 End: 10-08-2014 Lipid panel [AGGREGATE] *Lipid Profile CC PCP [facility] Work Phone: Start: 08-18-2014 End: 08-18-2014 Follow Up Appt 6 months Follow Up Appt 6 months [facility] Work Phone: Start: 08-18-2014 End: 08-18-2014 PFM PFM [facility] Work Phone: Start: 04-05-2014 End: 04-12-2014 *Hepatic Function Panel *Hepatic Function Panel [facility] Work Phone: Start: 04-05-2014 End: 04-12-2014 Lipid panel [AGGREGATE] *Lipid Profile CC PCP [facility] Work Phone: Start: 02-18-2014 End: 02-18-2014 Carotid duplex Carotid duplex [facility] Work Phone: Start: 02-17-2014 End: 02-18-2014 Ecg routine ecg w/least 12 lds w/i&r EKG (In office) [facility] Work Phone: Start: 02-17-2014 End: 08-10-2014 Follow Up Appt 6 months Follow Up Appt 6 months [place] [facility] Work Phone: Start: 02-17-2014 End: 08-10-2014 Follow Up Appt Other Follow Up Appt Other [facility] Work Phone: Start: 02-17-2014 End: 08-10-2014 MMM MMM [facility] Work Phone: Start: 02-17-2014 End: 02-18-2014 Us abdominal real time w/image limited US Abdominal (aneurysm screening) [facility] Work Phone: Start: 10-03-2013 End: 10-07-2013 *Hepatic Function Panel *Hepatic Function Panel [facility] Work Phone: Start: 10-03-2013 End: 10-07-2013 Lipid panel [AGGREGATE] *Lipid Profile CC PCP [facility] Work Phone: Start: 09-29-2013 End: 09-29-2013 Complete sleep workup (PSG,CPAP as indicated) & Follow up Complete sleep workup (PSG,CPAP as indicated) & Follow up [facility] Work Phone: Start: 09-29-2013 End: 09-29-2013 PFM PFM [facility] Work Phone: Start: 06-16-2013 End: 06-16-2013 Follow Up Appt 3 months Follow Up Appt 3 months [facility] Work Phone: Start: 06-16-2013 End: 06-16-2013 MMM MMM [facility] Work Phone: Start: 05-15-2013 End: 05-18-2013 *BMP *BMP [facility] Work Phone: Start: 05-15-2013 End: 05-18-2013 aPTT *PTT-Partial Thromboplastin Time [facility] Work Phone: Start: 05-15-2013 End: 05-18-2013 CBC W Auto Differential panel - Blood *CBC without Diff [facility] Work Phone: Start: 05-15-2013 End: 06-10-2013 Chest x-ray X-Ray, Chest, PA & Lateral [facility] Work Phone: Start: 05-15-2013 End: 05-18-2013 INR Coag RelTime (PPP) *PT/INR [place] [facility] Work Phone: Start: 05-15-2013 End: 05-15-2013 Left Heart Cath W/Grafts Left Heart Cath W/Grafts [place] [facility] Work Phone: Start: 05-06-2013 End: 05-06-2013 Ecg routine ecg w/least 12 lds w/i&r EKG (In office) [facility] Work Phone: Start: 05-06-2013 End: 05-07-2013 Echocardiography Echocardiogram (complete) [facility] Work Phone: Start: 05-06-2013 End: 05-06-2013 Follow Up Appt 6 months Follow Up Appt 6 months [facility] Work Phone: Start: 05-06-2013 End: 05-07-2013 Nuclear stress test -exercise Nuclear stress test -exercise [facility] Work Phone: Start: 05-06-2013 End: 05-06-2013 PFM PFM [facility] Work Phone: Start: 04-29-2013 End: 05-06-2013 *Hepatic Function Panel *Hepatic Function Panel [facility] Work Phone: Start: 04-29-2013 End: 05-06-2013 Lipid panel [AGGREGATE] *Lipid Profile [facility] Work Phone: Start: 11-19-2012 End: 04-21-2013 *Hepatic Function Panel *Hepatic Function Panel [place] [facility] Work Phone: Start: 11-19-2012 End: 2013 Lipid panel [AGGREGATE] *Lipid Profile [facility] Work Phone: Start: 10-21-2012 End: 10-21-2012 Follow Up Appt 6 months Follow Up Appt 6 months [facility] Work Phone: Start: 05-27-2012 End: 10-21-2012 Follow Up Appt 6 months Follow Up Appt 6 months [facility] Work Phone: Start: 05-07-2012 End: 04-11-2012 *Hepatic Function Panel *Hepatic Function Panel [facility] Work Phone: Start: 05-07-2012 End: 04-11-2012 Lipid panel [AGGREGATE] *Lipid Profile [facility] Work Phone: Start: 11-29-2011 End: 11-29-2011 Follow Up Appt 6 months Follow Up Appt 6 months [facility] Work Phone: Start: 10-04-2011 End: 04-11-2012 *BMP *BMP [facility] Work Phone: Start: 10-04-2011 End: 04-11-2012 *Hepatic Function Panel *Hepatic Function Panel [facility] Work Phone: Start: 10-04-2011 End: 10-04-2011 24 hour holter monitor 24 hour holter monitor [facility] Work Phone: Start: 10-04-2011 End: 10-04-2011 Echocardiography Echocardiogram (complete) [facility] Work Phone: Start: 10-04-2011 End: 10-04-2011 Follow Up Appt 6 weeks Follow Up Appt 6 weeks [facility] Work Phone: Start: 10-04-2011 End: 04-11-2012 Lipid panel [AGGREGATE] *Lipid Profile [facility] Work Phone: Start: 10-04-2011 End: 10-25-2011 Magnesium *Magnesium [facility] Work Phone: Start: 10-04-2011 End: 10-04-2011 Nuclear stress test -adenosine Nuclear stress test -adenosine [facility] Work Phone: Start: 10-04-2011 End: 10-25-2011 Thyroid stimulating hormone (TSH) *TSH [facility] Work Phone: Start: 10-04-2011 End: 10-25-2011 Thyroxine (T4) *T4 (Total) [facility] Work Phone: Patient Education [place] [facility] Work Phone: Patient referral [facility] Work Phone: Immunizations Immunization Date Immunization Notes Care Provider Fa cili 11-01-2020 Covid (Pfizer) [place] [facility] 03-09-2021 Covid (Pfizer) [facility] 10-02-2014 tetanus and diphther ia toxoids, adsorbed, preservative free, for adult use (2 Lf of tetanus toxoid and 2 Lf of diphtheria toxoid) [facility] Payers Date Payer Category Payer Self-pay [id number] 2023 Medicare [id number] dde 2010 [employer] ( and others) [id number] Medicare [id number] Unknown [id number] Unknown [id number] Unknown [id number] Social History Date Type Detail Facility Start: 07-03-2021 End: 07-23-2023 Tobacco smoking status NHIS Unknown if ever smoked [facility] Start: 02-05-2020 None [facility] [facility] Start: 02-05-2020 Spouse/ Signif icant Other [facility] Start: 02-05-2020 Non-smoker [facility] Start: 1955 Sex Assigned At Male [facility] Evaluation note 01-04-1996 Note Date & Type Note Facility 01-04-1996 Evaluation note Diagnosis Onset Date Essential (primary) hypertension chronic History of coronary artery b ypass surgery January, chronic 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 Pure hypercholesterolemia ch ronic [facility] Work Phone: Evaluation note 01-04-1996 Note Date & Type Note Facility 01-04-1996 Evaluation note Diagnosis Onset Date Nausea & vomiting acute Essential (primary) hypertension chronic History of coronary artery b ypass surgery January, chronic 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 Pure hypercholesterolemia [facility] Work Phone: Evaluation note Note Date & Type Note Facility [facility] Evaluation note Note Date & Type Note Facility Evaluation note Diagnosis Onset Date CAD (coronary artery disease) acute Angina pectoris chronic Essential (primary) hypertension chronic Pure hypercholesterolemia [facility] Work Phone: Evaluation note Note Date & Type Note Facility Evaluation note Diagnosis Onset Date CAD (coronary artery disease) acute Essential (primary) hypertension chronic 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 Pure hypercholesterolemia [facility] Work Phone: Summary Purpose Family History No Family History Records Found Relationship Condition Age at Onset Recorded Date/T brea Not Specified Cerebrovascular accident (CVA) Unknown father Coronary artery disease Unknown mother Diabetes mellitus Unknown brother Coronary artery disease Unknown Advance Directives No Advanced Directives Records Found Advance Directive Response Recorded Date/ Time Advance Directives Yes April 9:12am Living Will Yes February 05, 2020 8 :25am Power of School Bus Attendant Yes February 05, 2020 8:25am Advance Directive Response Recorded Date/ Time Name of Medical Power of School Bus Attendant - [place] February 10, 2022 10:01am Advance Directives Yes April 9:12am Living Will Yes February 10, 2022 1 0:01am Power of School Bus Attendant Yes February 10, 2022 10:01am Advance Directive Response Recorded Date/ Time Advance Directives Yes April 9:12am Living Will Yes February 10, 2022 1 0:01am Power of School Bus Attendant Yes February 10, 2022 10:01am Advance Directive Response Recorded Date/ Time Advance Directives Yes April 8:12am Living Will Yes February 10, 2022 9 :01am Power of School Bus Attendant Yes February 10, 2022 9:01am Hospital Course Note HNO ID: [id number] Author: Navid Lawrence Service: Hospital Medicine Author [...] (more content not included)... Note HNO ID: [id number] Author: Kacie Tamayo Service: Interventional Cardiology Author [...] the wirst with 1% lidocaine. A pre-flushed 6-Tajik sheath was inserted into the Left radial artery via the Seldinger technique without complications. Retrograde percutaneous diagnostic coronary angiography and left ventriculography were performed using a Randee left 4 catheter (more content not included)... Procedure Findings Note HNO ID: [id number] Author: Kacie Tamayo Service: Interventional Cardiology Author [...] the wirst with 1% lidocaine. A pre-flushed 6-Tajik sheath was inserted into the Left radial artery via the Seldinger technique without complications. Retrograde percutaneous diagnostic coronary angiography and left ventriculography were performed using a Randee left 4 catheter (more content not included)... Chief Complaint and Reason for Visit Chief Complaint MASK LEAK PRESSURE CHANGE KYLE; BIPAP S *INVENTORY TAGGED Chief Complaint PRESSURE CHANGE KYLE; BIPAP S *INVENTORY TAGGED 6 M FU Reason for Visit Essential (primary) hypertension History of coronary artery bypass surgery Ischemic cardiomyopathy Pure hypercholesterolemia Chief Complaint KYLE; BIPAP S *INVENT ORY TAGGED 6 M FU RIGHT SHOULDER Reason for Visit Essential (primary) hypertension History of coronary artery bypass surgery Ischemic cardiomyopathy Pure hypercholesterolemia Chief Complaint RIGHT SHOULDER pt is having low bp Reason for Visit Nausea & vomiting Essential (primary) hypertension History of coronary artery bypass surgery Ischemic cardiomyopathy Pure hypercholesterolemia Chief Complaint 6 m fu Reason for Visit CAD (coronary artery disease) Angina pectoris Essential (primary) hypertension Pure hypercholesterolemia Chief Complaint 6 m fu KYLE Reason for Visit CAD (coronary artery disease) Angina pectoris Essential (primary) hypertension Pure hypercholesterolemia Chief Complaint 6 M FU DYSPNEA/SOB, EVALUATE EF Reason for Visit CAD (coronary artery disease) Essential (primary) hypertension Ischemic cardiomyopathy Pure hypercholesterolemia Additional Source Comments (unrecognized sect ion and content) No Status Records FoundNo Status Records FoundNo Status Records Found INFORMATION SOURCE (unrecogn ized section and content) DATE CREATED AUTHOR 02/26/2020 [facility] DATE CREATED AUTHOR AUTHOR'S ORGANIZ ATION 02/26/2020 [facility] DATE CREATED AUTHOR AUTHOR'S ORGANIZ ATION 01/09/2025 [facility] Goals (unrecognized section and content) Goals may be documented in a n alternate sectionGoals may be documented in an alternate sectionGoals may be documented in an alternate sectionGoals may be documented in an alternate sectionGoals may be documented in an alternate sectionGoals may be documented in an alternate sectionGoals may be documented in an alternate sectionGoals may be documented in an alternate section Care Teams (unrecognized sec tion and content) Team Status: Active Member Role Status Dates Dr. Johann Bertrand MD Family Provider Active Dr. Johann Bertrand MD Primary Care Provider Activ e Team Status: Inactive Member Role Status Dates Dr. Johann Bertrand MD Primary Care Provider, Refe rring Provider Active Bob Vela [employer]ATIC MOLD SANDER, AUTOMATIC MOLD SANDER-C Attending Provider Active Team Status: Inactive Member Role Status Dates Dr. Johann Bertrand MD Primary Care Provider Activ e Kavitha Orozco , AUTOMATIC MOLD SANDER-C Attending Provider, Referring Pr ovider Active Team Status: Inactive Member Role Status Dates Dr. Johann Bertrand MD Primary Care Provider Activ e Dr. Homero Montes MD Attending Provider Active Team Status: Inactive Member Role Status Dates Dr. Johann Bertrand MD Primary Care Provider, Atte nding Provider Active Team Status: Active Member Role Status Dates Dr. Johann Bertrand MD Primary Care Provider Activ e Bob Vela AUTOMATIC MOLD SANDER, AUTOMATIC MOLD SANDER-C Attending Provider, Referring Pro vider Active Team Status: Inactive Member Role Status Dates Dr. Johann Bertrand MD Primary Care Provider Activ e Bob Vela AUTOMATIC MOLD SANDER, AUTOMATIC MOLD SANDER-C Attending Provider, Referring Pro vider Active FOR RECORDS PERTAINING TO PATIENTS WHO ARE [...] BE BASED ON THE PRIMARY CLINICAL RECORDS. [employer] provides no warranty or guarantee of the accuracy or completeness of information in this document.
== END | disposition home or self-care (01) ==
LOC: CVS 08:51
PROVIDERS: PCP Family Medicine; Referring Provider Nurse Practitioner Family; Visit Provider Nurse Practitioner Family
DX: I65.22 Occlusion and stenosis of left carotid artery (principal); I25.810 Atherosclerosis of coronary artery bypass graft(s) without angina pectoris; Z95.1 Presence of aortocoronary bypass graft; E78.00 Pure hypercholesterolemia, unspecified
CPT/HCPCS: 93880